=== PATIENT | female | born 1990 | race Two or more races ===

== ENCOUNTER 2018-03-26 14:34 | Inpatient (IN) | payer OTHER ==
[~2018-03-26] VITALS: Ht 157.5 cm; Wt 59.4 kg
--- NOTE | 2018-03-26 14:50 | NUR ---
BIB [facility] FOR FEVER AND TACHYCARDIA . PATIENT IS AFEBRILE AT THIS TIME. GT PATENT. PATIENT NOTED WITH HEMATURIA. VSS
[2018-03-26] MEDS ORDERED: PIPERACILLIN /TAZOBACTAM 4.5 G in IV D5W 50 ML IV ONE (15:00)
--- NOTE | 2018-03-26 15:18 | NUR ---
CALLED [facility] CELL CHANGER WAS PAGED.
[2018-03-26 15:29] LABS: BASOPHILS # (AUTO) 0.1 /CMM (0.0-0.2); BASOPHILS % (AUTO) 0.4 % (0.0-2.0); EOSINOPHILS % (AUTO) 0.8 % (0.0-6.0); HEMATOCRIT 27 % (33-45); HEMOGLOBIN 9.3 g/dL (11.5-14.8); LYMPHOCYTES # (AUTO) 1.8 /CMM (0.8-4.8); LYMPHOCYTES % (AUTO) 10.1 % (20.0-44.0); MEAN CORPUSCULAR HGB CONC 35 g/dl (31.0-36.0); MEAN CORPUSCULAR VOLUME 85 fL (82-100); MONOCYTES # (AUTO) 1.2 /CMM (0.1-1.30); MONOCYTES % (AUTO) 6.7 % (2.0-12.0); NEUTROPHILS # (AUTO) 14.9 /CMM (1.8-8.9); PLATELET COUNT (AUTO) 146 /CMM (150-450); RDW COEFFICIENT OF VARIATION 13.1 (11.5-15.0); RED BLOOD CELL COUNT(AUTO) 3.14 MIL/uL (4.0-5.2); WHITE BLOOD COUNT (AUTO) 18.1 K/uL (4.3-11.0)
[2018-03-26] MEDS ORDERED: IV NS 0.9% 1,000 ML BAG IV ONE ×3 (15:30)
[2018-03-26 15:37] LABS: CALCIUM, SERUM 8.2 mg/dL (8.5-10.1); CREATININE 0.8 mg/dL (0.6-1.3); POTASSIUM 3.6 mmol/L (3.5-5.1)
[2018-03-26 15:43] LABS: ALBUMIN 1.8 g/dL (3.4-5.0); BILIRUBIN,DIRECT 0.4 mg/dL (0.0-0.2); BILIRUBIN,TOTAL 0.6 mg/dL (0.2-1.0); TOTAL PROTEIN, SERUM 6.7 g/dL (6.4-8.2)
[2018-03-26] MEDS: VANCOMYCIN 1 GM in IV NS 0.9% 250 ML IV SCH (15:50)
[2018-03-26] MEDS ORDERED: LACT-209 GT (15:56)
[2018-03-26] MEDS ORDERED: ASCO500T9 GT (15:56)
[2018-03-26] MEDS ORDERED: ACET650S26 GT (15:56)
[2018-03-26] MEDS ORDERED: GLYC1TAB12 GT (15:56)
[2018-03-26] MEDS ORDERED: TRAM50TA2 GT (15:56)
[2018-03-26] MEDS ORDERED: MAGN400T6 GT (15:56)
[2018-03-26] MEDS ORDERED: ALBU2.5V38 IH (15:56)
[2018-03-26] MEDS ORDERED: WARF2TAB57 GT (15:56)
[2018-03-26] MEDS ORDERED: LEVE1000 PO (15:56)
[2018-03-26] MEDS ORDERED: SACC250C GT (15:56)
[2018-03-26] MEDS ORDERED: LACO200T2 GT (15:56)
[2018-03-26 16:00] LABS: APPEARANCE,URINE Cloudy (CLEAR); BILIRUBIN,URINE MODERATE (NEGATIVE); BLOOD, URINE Large Ery/uL (NEGATIVE); COLOR,URINE Red (YELLOW); KETONES,URINE 15 (NEGATIVE); LEUKOCYTE ESTERASE ,URINE Large (NEGATIVE); NITRITE, URINE Positive (NEGATIVE); PH,URINE 8.5 (5.0-8.0); PROTEIN,URINE >=300 mg/dl (NEGATIVE); UGLUCOSE Negative (NEGATIVE)
[2018-03-26 16:05] LABS: PARTIAL THROMBOPLASTIN TIME 62 SEC (23-34)
[2018-03-26 16:09] LABS: INR > 10.00 (0.87-1.13)
[2018-03-26 16:13] LABS: RBC,URINE TOO NUMEROUS TO COUN /HPF (0-2)
[2018-03-26 16:14] LABS: BACTERIA,URINE Moderate /HPF (None Seen)
[2018-03-26 16:15] LABS: SQUAMOUS EPITHELIAL CELL,UR Few /HPF (None Seen)
[2018-03-26] MEDS ORDERED: ALBUTEROL FS 2.5 MG/3 ML VIAL.NEB IH PRN (16:30)
[2018-03-26] MEDS ORDERED: PHYTONADIONE INJ 10 MG in IV D5W 50 ML IV ONE (16:30)
[2018-03-26] MEDS ORDERED: ACETAMINOPHEN 650 MG/20.3 ML UDC GT SCH (16:30)
[2018-03-26 16:46] LABS: BAND % (MANUAL) 1 % (0.0-5.0); EOSINOPHILS % (MANUAL) 0 % (0-4); LYMPHOCYTES % (MANUAL) 10 % (16-48); MONOCYTES % (MANUAL) 8 % (0-11.0); NEUTROPHILS % (MANUAL) 81 (42-76)
--- NOTE | 2018-03-26 16:47 | NUR ---
REPORT GIVEN TO LIBAN ROBERTS
--- NOTE | 2018-03-26 16:47 | NUR ---
PT WAS TAKEN TO CT
[2018-03-26] MEDS: GLYCOPYRROLATE 1 MG TABLET GT SCH ×2 (18:38→23:40)
[2018-03-26] MEDS: LACTOBACILLUS RHAMNOSUS GG 1 EACH CAP.SPRINK PO SCH (18:40)
[2018-03-26] MEDS: JEVITY 1.2 CAL 1,000 ML BOTTLE GT SCH (19:05)
--- NOTE | 2018-03-26 19:22 | NUR ---
WASHER MACHINE ADMITTING NOTES PATIENT ADMITTED TO UNIT AT 1830 VIA GURNEY ACCOMPANIED BY Nakul VEGA. PATIENT TRANSFERRED TO BED GENTLY AND PLACED ON MODERATE HIGH BACKREST POSITION. ALERT, OPENS HER EYES, NON-VERBAL AND DOESN'T FOLLOW COMMANDS. 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 V/S TAKEN; BP 118/84, P 71, R 18, AND T 97.6F. PT ON TRACH COLLAR (T- PIECE) AT 5LPM, TOLERATING WELL WITH NO SOB NOTED, SP02 99%. PT WITH MONTERO CATHETER FR # [address] AND ACTIVELY DRAINING GROSS HEMATURIA, INVESTIGATION CLERK GIGI AWARE. PT WITH PEG-TUBE IN PLACE AND PATENT WITH FEEDING OF JEVITY 1.2 @ 50ML/HR STARTED. ASPIRATION PRECAUTIONS ENFORCED. PT HAS TWO IV LINES: RIGHT HAND G# 22,AND LEFT THUMP G#22, BOTH INTACT AND PATENT. SAFETY MEASURES INITIATED. BED PLACED ON LOW/LOCKED POSITION WITH SIDE-RAILS UP X3. CALL LIGHT WITHIN REACH. ENDORSED TO CHARGE WEIGHER NURSE BEE TO CONTINUE AND FINISH THE ADMISSION PROCESS,
--- NOTE | 2018-03-26 19:53 | NUR ---
LABEL TACKER OPENING NOTE RECEIVED PATIENT IN BED. AWAKE, NON-VERBAL, OPENS EYES. DOES NO RESPOND OR FOLLOW COMMANDS. IN NO APPARENT DISTRESS OR DISCOMFORT AT THIS TIME. PT ON TRACH COLLAR (T- PIECE) AT 5LPM, TOLERATING WELL WITH NO SOB NOTED. RESPIRATIONS EVEN AND UNLABORED. PT WITH MONTERO CATHETER FR # [address] AND ACTIVELY DRAINING GROSS HEMATURIA, SALESPERSON STEREO EQUIPMENT GIGI AWARE. PT WITH PEG-TUBE IN PLACE AND PATENT WITH FEEDING OF JEVITY 1.2 @ 50ML/HR STARTED. PT HAS 2 IV LINES: RIGHT HAND G# 22,AND LEFT THUMP G#22, BOTH INTACT AND PATENT. ASPIRATION PRECAUTIONS ENFORCED, HOB ELEVATED. SAFETY MEASURES IN PLACE. BED IN LOW LOCKED POSITION, SIDE RAILS UP X2, WILL CONTINUE TO MONITOR.
[2018-03-26] MEDS ORDERED: ONDANSETRON HCL/PF 4 MG/2 ML VIAL IVP PRN (20:30)
[2018-03-26] MEDS ORDERED: Z GUARD REMEDY 2 OZ OINT TP PRN (20:30)
[2018-03-26] MEDS ORDERED: ZOLPIDEM TARTRATE 5 MG TABLET PO PRN (20:30)
[2018-03-26 21:00] VITALS: BP 129/72
[2018-03-26 21:01] LABS: BASOPHILS % (AUTO) 0.1 % (0.0-2.0); EOSINOPHILS % (AUTO) 0.4 % (0.0-6.0); HEMATOCRIT 31 % (33-45); HEMOGLOBIN 10.4 g/dL (11.5-14.8); LYMPHOCYTES # (AUTO) 1.9 /CMM (0.8-4.8); MEAN CORPUSCULAR HGB CONC 34 g/dl (31.0-36.0); MEAN CORPUSCULAR VOLUME 86 fL (82-100); MONOCYTES # (AUTO) 1.2 /CMM (0.1-1.30); NEUTROPHILS % (AUTO) 81.5 % (43.0-81.0); PLATELET COUNT (AUTO) 168 /CMM (150-450); RDW COEFFICIENT OF VARIATION 14.1 (11.5-15.0); RED BLOOD CELL COUNT(AUTO) 3.58 MIL/uL (4.0-5.2); WHITE BLOOD COUNT (AUTO) 17.2 K/uL (4.3-11.0)
[2018-03-26] MEDS: LEVETIRACETAM (250 MG) 250 MG TABLET PO SCH (21:10)
[2018-03-26] MEDS: TRAMADOL HCL 50 MG TABLET GT SCH ×2 (21:11→22:11)
[2018-03-26] MEDS: MAGNESIUM OXIDE 400 MG TABLET GT SCH (21:11)
[2018-03-26 21:16] LABS: BAND % (MANUAL) 7 % (0.0-5.0); BASOPHILS % (MANUAL) 0 % (0.0-2.0); EOSINOPHILS % (MANUAL) 1 % (0-4); LYMPHOCYTES % (MANUAL) 15 % (16-48); MONOCYTES % (MANUAL) 4 % (0-11.0); NEUTROPHILS % (MANUAL) 73 (42-76)
--- NOTE | 2018-03-26 22:00 | NUR ---
PATIENT WITH GROSS HEMATURIA, CONTINUOUS BLADDER IRRIGATION THROUGH [address] INITIATED PER DR. YU'S ORDER. MONTERO CATHETER REPLACED WITH THREE WAY CATHETER
--- NOTE | 2018-03-26 22:30 | NUR ---
PATIENT HAS ORDER FOR FFP X2 UNITS BY DR. YU. SPOKE TO LAB, PLASMA IS NOT READY YET. WAS TOLD I WILL BE NOTIFIED ONCE IT IS READY IN COUPLE HOURS. WILL CONTINUE TO MONITOR. MEANWHILE WILL TRY TO OBTAIN CONSENT.
--- NOTE | 2018-03-26 22:40 | NUR ---
PATIENT WITHOUT ANY EMERGENCY CONTACT. ATTEMPTED TWO CALLS TO THE NURSING FACILITY SHE CAME FROM TO OBTAIN INFORMATION REGARDING ANY RELATIVES. NO SUCCESS. WILL CALL THE [facility] TO REPORT.
--- NOTE | 2018-03-26 23:05 | NUR ---
SPOKE WITH DR. EVANS REGARDING NOT BEING ABLE TO FIND ANY RELATIVES TO CONSENT FOR FFP TRANSFUSION FOR THE PATIENT. REPORTED CURRENT AND OLD LABS, PATIENT'S CURRENT CONDITION. WAS TOLD BY DR. EVANS TO HOLD THE TRANSFUSION TILL THE AM. WILL CONTINUE TO MONITOR.
[2018-03-27] VITALS: BP 109/74
[2018-03-27] MEDS ORDERED: VANCOMYCIN 1 GM VIAL ONE (02:33)
[2018-03-27] MEDS: VANCOMYCIN 1 GM in IV NS 0.9% 250 ML IV SCH (02:43)
[2018-03-27 04:00] VITALS: BP 141/85
[2018-03-27] MEDS: GLYCOPYRROLATE 1 MG TABLET GT SCH ×4 (05:50→23:12)
--- NOTE | 2018-03-27 07:20 | NUR ---
FUNDRAISING OFFICER CLOSING NOTE PATIENT IN BED. AWAKE, NON-VERBAL, OPENS EYES. DOES NO RESPOND OR FOLLOW COMMANDS. IN NO APPARENT DISTRESS OR DISCOMFORT AT THIS TIME. PT ON TRACH COLLAR (T- PIECE) AT 5LPM, TOLERATING WELL WITH NO SOB NOTED. RESPIRATIONS EVEN AND UNLABORED. PT WITH 3 WAY MONTERO CATHETER IN PLACE WITH CONTINUOUS BLADDER IRRIGATING THROUGHOUT THE NIGHT. URINE COLOR SLIGHTLY IMPROVED TO BE CRANBERRY COLOR. PATIENT HAD ORDER FOR FFP TRANSFUSION BUT DUE TO INABILITY TO OBTAIN CONSENT THE TRANSFUSION WAS PUT ON HOLD TILL AM PER DR. EVANS ORDER. PT WITH PEG-TUBE IN PLACE AND PATENT WITH FEEDING OF JEVITY 1.2 @ 50ML/HR STARTED. PT HAS 2 IV LINES: RIGHT HAND G# 22,AND LEFT THUMP G#22, BOTH INTACT AND PATENT. ASPIRATION PRECAUTIONS ENFORCED, HOB ELEVATED. SAFETY MEASURES IN PLACE. BED IN LOW LOCKED POSITION, SIDE RAILS UP X2, WILL ENDORSE TO AM NURSE FOR GUILLERMO.
--- NOTE | 2018-03-27 07:38 | NUR ---
MS/RN OPENING NOTE PATIENT IN BED IN STABLE CONDITION. NON VERBAL, OPEN EYES. ON TRACH DEPENDENT. TOLERATING WELL. NO SIGNS OF ACUTE DISTRESS. NO COMPLAIN OF PAIN OR DISCOMFORT. ON G TUBE FEEDING JEVITY @ 50 ML/HR. TOLERATING WELL. HOB ELEVATED FOR ASPIRATION PRECAUTION. ON CONTINUOS BLADDER IRRIGATION. TOLERATING WELL. F/C INTACT AND FLOWING FREELY NOTED WITH SEROSANGUINEOUS COLOR OUTPUT. ALL NEEDS ATTENDED TO. CALL LIGHT WITHIN REACH. WILL CONTINUE TO MONITOR TO ENSURE SAFETY.
[2018-03-27] MEDS: LACTOBACILLUS RHAMNOSUS GG 1 EACH CAP.SPRINK PO SCH ×2 (08:48→17:10)
[2018-03-27] MEDS: LACOSAMIDE 50 MG TABLET GT SCH ×2 (08:48→21:37)
[2018-03-27] MEDS: TRAMADOL HCL 50 MG TABLET GT SCH ×2 (08:49→21:37)
[2018-03-27] MEDS: ASCORBIC ACID 500 MG TABLET GT SCH (08:49)
[2018-03-27] MEDS: ACETAMINOPHEN 325 MG TABLET PO PRN (08:49)
[2018-03-27 09:22] LABS: BASOPHILS % (AUTO) 0.3 % (0.0-2.0); EOSINOPHILS % (AUTO) 1.1 % (0.0-6.0); HEMATOCRIT 27 % (33-45); LYMPHOCYTES # (AUTO) 1.3 /CMM (0.8-4.8); MEAN CORPUSCULAR HGB CONC 33 g/dl (31.0-36.0); MEAN CORPUSCULAR VOLUME 86 fL (82-100); MONOCYTES # (AUTO) 0.6 /CMM (0.1-1.30); MONOCYTES % (AUTO) 5.9 % (2.0-12.0); NEUTROPHILS # (AUTO) 8.6 /CMM (1.8-8.9); NEUTROPHILS % (AUTO) 80.7 % (43.0-81.0); PLATELET COUNT (AUTO) 194 /CMM (150-450); WHITE BLOOD COUNT (AUTO) 10.7 K/uL (4.3-11.0)
[2018-03-27 09:42] LABS: CALCIUM, SERUM 7.6 mg/dL (8.5-10.1); CREATININE 0.8 mg/dL (0.6-1.3); MAGNESIUM 1.6 mg/dL (1.8-2.4); PHOSPHORUS 2.1 mg/dL (2.5-4.9); POTASSIUM 3.1 mmol/L (3.5-5.1)
[2018-03-27 09:44] VITALS: BP 118/59
[2018-03-27 10:07] LABS: INR 1.03 (0.87-1.13)
[2018-03-27] MEDS ORDERED: POTASSIUM CHLORIDE 20 MEQ POWDER PACKET GT ONE (11:00)
[2018-03-27] MEDS ORDERED: FEE PK DOSING 1 MIN EA MC ONE (11:16)
[2018-03-27] MEDS: Magnesium 1GM/D5W 100ML PREMIX 100 ML IV SCH ×2 (11:33→12:40)
[2018-03-27] MEDS: PIPERACILLIN /TAZOBACTAM 3.375 G in IV NS 0.9% 50 ML IV SCH ×2 (13:37→19:16)
[2018-03-27] MEDS ORDERED: NEUTRA PHOS 1 POWD.PACKET NG ONE (14:00)
[2018-03-27] MEDS: VANCOMYCIN 0.75 GM in IV NS 0.9% 250 ML IV SCH ×2 (14:18→19:47)
[2018-03-27 15:28] LABS: BASOPHILS % (AUTO) 0.3 % (0.0-2.0); EOSINOPHILS % (AUTO) 1.4 % (0.0-6.0); HEMATOCRIT 25 % (33-45); HEMOGLOBIN 8.3 g/dL (11.5-14.8); LYMPHOCYTES # (AUTO) 2.3 /CMM (0.8-4.8); LYMPHOCYTES % (AUTO) 16.8 % (20.0-44.0); MEAN CORPUSCULAR HGB CONC 33 g/dl (31.0-36.0); MEAN CORPUSCULAR VOLUME 85 fL (82-100); MONOCYTES # (AUTO) 1.6 /CMM (0.1-1.30); MONOCYTES % (AUTO) 11.9 % (2.0-12.0); NEUTROPHILS # (AUTO) 9.6 /CMM (1.8-8.9); NEUTROPHILS % (AUTO) 69.6 % (43.0-81.0); PLATELET COUNT (AUTO) 181 /CMM (150-450); RDW COEFFICIENT OF VARIATION 14.5 (11.5-15.0); RED BLOOD CELL COUNT(AUTO) 2.93 MIL/uL (4.0-5.2); WHITE BLOOD COUNT (AUTO) 13.8 K/uL (4.3-11.0)
[2018-03-27 16:00] VITALS: BP 108/74
--- NOTE | 2018-03-27 18:20 | NUR ---
MS/RN CLOSING NOTE PATIENT IN BED IN STABLE CONDITION. NON VERBAL, OPEN EYES. TRACH DEPENDENT, TOLERATING WELL. NO SIGNS OF ACUTE DISTRESS. NO COMPLAIN OF PAIN OR DISCOMFORT. ON G TUBE FEEDING TOLERATING WELL. HOB ELEVATED FOR ASPIRATION PRECAUTION. TOLERATING WELL. ON CONTINUOUS BLADDER IRRIGATION, TOLERATING WELL. F/C DRAINING WELL, STILL NOTED WITH LIGHT RED COLOR OUTPUT WITH VERY LITTLE SIZE/FEW BLOOD CLOTS. ALL NEEDS ATTENDED TO. CALL LIGHT WITHIN REACH. WILL ENDORSE TO NEXT SHIFT FOR CONTINUITY OF CARE.
--- NOTE | 2018-03-27 19:25 | NUR ---
MS RN OPENING NOTE RECEIVED PATIENT IN BED. AWAKE, NON-VERBAL, OPENS EYES. DOES NO RESPOND OR FOLLOW COMMANDS. IN NO APPARENT DISTRESS OR DISCOMFORT AT THIS TIME. PT ON TRACH COLLAR, TOLERATING WELL WITH NO SOB NOTED. RESPIRATIONS EVEN AND UNLABORED. PT WITH 3 WAY MONTERO CATHETER IN PLACE WITH CONTINUOUS BLADDER IRRIGATION, BRIGHT RED COLOR OUTPUT, SMALL AMOUNT OF CLOTS STILL NOTED . PT WITH PEG-TUBE IN PLACE AND PATENT WITH FEEDING OF JEVITY 1.2 @ 50ML/HR RESTARTED FOR 20HRS. PT HAS 2 IV LINES: RIGHT HAND G# 22,AND LEFT THUMP G#22, BOTH INTACT AND PATENT. ASPIRATION PRECAUTIONS ENFORCED, HOB ELEVATED. SAFETY MEASURES IN PLACE. BED IN LOW LOCKED POSITION, SIDE RAILS UP X2, WILL CONTINUE TO MONITOR.
[2018-03-27] MEDS: JEVITY 1.2 CAL 1,000 ML BOTTLE GT SCH (19:48)
[2018-03-27 20:00] VITALS: BP 118/74
[2018-03-27] MEDS: MAGNESIUM OXIDE 400 MG TABLET GT SCH (21:37)
[2018-03-27] MEDS: LEVETIRACETAM (250 MG) 250 MG TABLET PO SCH (21:38)
[2018-03-28] MEDS: PIPERACILLIN /TAZOBACTAM 3.375 G in IV NS 0.9% 50 ML IV SCH ×4 (00:01→18:09)
[2018-03-28] MEDS: VANCOMYCIN 0.75 GM in IV NS 0.9% 250 ML IV SCH ×3 (03:09→19:58)
[2018-03-28] MEDS: GLYCOPYRROLATE 1 MG TABLET GT SCH ×3 (05:18→17:25)
--- NOTE | 2018-03-28 07:25 | NUR ---
MS RN CLOSING NOTE PATIENT IN BED. AWAKE, NON-VERBAL, OPENS EYES. DOES NO RESPOND OR FOLLOW COMMANDS. IN NO APPARENT DISTRESS OR DISCOMFORT AT THIS TIME. PT ON TRACH COLLAR WITH 5LPM, TOLERATING WELL WITH NO SOB NOTED. RESPIRATIONS EVEN AND UNLABORED. PT WITH 3 WAY MONTERO CATHETER IN PLACE WITH CONTINUOUS BLADDER IRRIGATION, BRIGHT RED COLOR OUTPUT. PT WITH PEG-TUBE IN PLACE AND PATENT WITH FEEDING OF JEVITY 1.2 @ 50ML/HR RESTARTED FOR 20HRS. PT HAS 2 IV LINES: RIGHT HAND G# 22,AND LEFT THUMP G#22, BOTH INTACT AND PATENT. ASPIRATION PRECAUTIONS ENFORCED, HOB ELEVATED. SAFETY MEASURES IN PLACE. BED IN LOW LOCKED POSITION, SIDE RAILS UP X2. WILL ENDORSE TO AM NURSE FOR GUILLERMO.
--- NOTE | 2018-03-28 07:50 | NUR ---
RN NOTES PATIENT RESTING, NON-VERBAL. ON COOL AEROSOL AND SATING WELL, NO SOB OR DISTRESS NOTED. NO FACIAL GRIMACING NOTED. URINARY IRRIGATION STILL CONTINUES, 2000ML OUTPUT NOTED ON THE BAG. ON GTF ONGOING AND TOLERATING WELL, HOB ELEVATED, CALL LIGHT WITHIN REACH, SAFETY MEASURES IN PLACED, WILL CONTINUE TO MONITOR.
[2018-03-28 08:00] VITALS: BP 131/79
[2018-03-28] MEDS: ASCORBIC ACID 500 MG TABLET GT SCH (08:24)
[2018-03-28] MEDS: LACOSAMIDE 50 MG TABLET GT SCH ×2 (08:24→21:18)
[2018-03-28] MEDS: TRAMADOL HCL 50 MG TABLET GT SCH ×2 (08:24→21:18)
[2018-03-28] MEDS: LACTOBACILLUS RHAMNOSUS GG 1 EACH CAP.SPRINK PO SCH ×2 (08:25→16:04)
--- NOTE | 2018-03-28 11:00 | NUR ---
RN NOTES RECEIVED ORDER FROM ESAU LANGE TO DISCONTINUE BLADDER IRRIGATION.
[2018-03-28 16:00] VITALS: BP 122/51
--- NOTE | 2018-03-28 16:00 | NUR ---
RN NOTES PATIENT'S VS RELAYED TO ESAU LANGE, BP 117/58 HR 117 TEMP 101.8, RECEIVED ORDER FOR BLOOD CULTURE X2. ORDER NOTED AND CARRIED OUT. COOLING MEASURES PROVIDED, TYLENOL WILL BE ADMINISTERED.
[2018-03-28] MEDS: ACETAMINOPHEN 325 MG TABLET PO PRN (16:04)
[2018-03-28 16:44] LABS: EOSINOPHILS % (AUTO) 1.1 % (0.0-6.0); HEMATOCRIT 23 % (33-45); HEMOGLOBIN 7.9 g/dL (11.5-14.8); LYMPHOCYTES # (AUTO) 1.9 /CMM (0.8-4.8); LYMPHOCYTES % (AUTO) 11.1 % (20.0-44.0); MEAN CORPUSCULAR HGB CONC 35 g/dl (31.0-36.0); MEAN CORPUSCULAR VOLUME 85 fL (82-100); MONOCYTES # (AUTO) 1.3 /CMM (0.1-1.30); MONOCYTES % (AUTO) 7.8 % (2.0-12.0); NEUTROPHILS # (AUTO) 13.7 /CMM (1.8-8.9); PLATELET COUNT (AUTO) 243 /CMM (150-450); RDW COEFFICIENT OF VARIATION 13.9 (11.5-15.0); RED BLOOD CELL COUNT(AUTO) 2.71 MIL/uL (4.0-5.2); WHITE BLOOD COUNT (AUTO) 17.1 K/uL (4.3-11.0)
[2018-03-28 17:01] LABS: CALCIUM, SERUM 7.8 mg/dL (8.5-10.1); CREATININE 0.7 mg/dL (0.6-1.3); LYMPHOCYTES % (MANUAL) 14 % (16-48); MAGNESIUM 1.9 mg/dL (1.8-2.4); MONOCYTES % (MANUAL) 6 % (0-11.0); NEUTROPHILS % (MANUAL) 80 (42-76); PHOSPHORUS 2.9 mg/dL (2.5-4.9); POTASSIUM 3.5 mmol/L (3.5-5.1)
--- NOTE | 2018-03-28 18:22 | NUR ---
RN NOTES PATIENT OPENS EYES, NON-VERBAL, BREATHING EVEN AND UNLABORED, ON TRACH AND TOLERATING COOL AEROSOL SETTING. NO S/SX OF PAIN OR DISCOMFORT AT THIS TIME, TURNED AND REPOSITIONED EVERY 2 HOURS, SKIN CARE RENDERED, OFFLOAD EXTREMITIES, WOUND CONSULT TRIGGERED, HARRIET DRIVER RETRAINING INSTRUCTOR MADE AWARE. PATIENT CONTINUES ON COOLING MEASURES, TEMP 99.1. ALL NEEDS ATTENDED AND MET, CALL LIGHT WITHIN REACH, WILL ENDORSE TO SPOTTER DRIVER FOR GUILLERMO.
--- NOTE | 2018-03-28 19:30 | NUR ---
RN MS OPENING NOTES RECEIVED PATIENT IN BED, AWAKE, EASILY AROUSABLE, OBTUNDED, NON VERBAL, RESPIRATIONS EVEN AND UNLABORED, TRACH INTACT AND PATENT, ON 02 , MONTERO CATHETER INTACT NOTED DRAINING RED/PINK URINE, F/C PATENT, GTUBE PLACEMENT CHECKED INTACT AND PATENT, IV SITE TO RIGHT HAND 22 GAUGE AND LEFT THUMB 22 GAUGE INTACT AND PATENT, NO INFILTRATION NO REDNESS TO SITES PRESENT.HEAD OF BED ELEVATED FOR ASPIRATION PRECAUTIONS, NOTED TEMP OF 100.2 COOLING MEASURES RENDERED WILL CONTINUE TO MONITOR. SAFETY MEASURES IN PLACE CALL LIGHT KEPT WITHIN REACH
[2018-03-28 20:00] VITALS: BP 110/63
--- NOTE | 2018-03-28 20:00 | NUR ---
RN NOTES COOLING MEASURES EFFECTIVE NOTED TEMP DECREASE TO 99.3, PATIENT REMAINS COMFORTABLE AT THIS TIME.WILL CONTINUE TO MONITOR
[2018-03-28 20:02] VITALS: BP 110/63
[2018-03-28] MEDS: JEVITY 1.2 CAL 1,000 ML BOTTLE GT SCH (20:14)
--- NOTE | 2018-03-28 21:00 | NUR ---
RN NOTES VIMPAT INTENDED DOSE IS 200 I REMOVED 100MG AND RETURNED TO [facility] DUE TO WRONG DOSE REMOVED WAS ABLE TO GET CORRECT DOSE FROM OTHER [facility]
[2018-03-28] MEDS: MEROPENEM 500 MG in IV NS 0.9% 50 ML IV SCH (21:19)
[2018-03-28] MEDS: MAGNESIUM OXIDE 400 MG TABLET GT SCH (22:05)
[2018-03-28] MEDS: LEVETIRACETAM (250 MG) 250 MG TABLET PO SCH (22:06)
--- NOTE | 2018-03-28 22:10 | NUR ---
RN MS NOTES PERINEAL CARE PROVIDED WOUND TREATMENT DONE ORDERED TO SACRAL DTI AND MASD OF BUTTOCKS, TOLERATED WELL , NO DETERIORATION TO SITE NOTED, KEPT CLEAN AND DRY, REPOSITIONED TO OFFLOAD AFFECTED AREAS WILL CONTINUE TO MONITOR.
[2018-03-29] MEDS: GLYCOPYRROLATE 1 MG TABLET GT SCH ×5 (00:30→23:18)
[2018-03-29] MEDS: ACETAMINOPHEN 325 MG TABLET PO PRN ×3 (02:09→18:33)
--- NOTE | 2018-03-29 02:10 | NUR ---
RN MS NOTES NOTED PATIENT WITH FEVER OF 100.7 COOLING MEASURES PROVIDED, TYLENOL GIVEN ORDERED, WILL CONTINUE TO MONITOR AND PROVIDE COOLING MEASURES , BLOOD CULTURE STILL PENDING
[2018-03-29] MEDS: VANCOMYCIN 0.75 GM in IV NS 0.9% 250 ML IV SCH ×3 (03:09→19:28)
[2018-03-29] MEDS: MEROPENEM 500 MG in IV NS 0.9% 50 ML IV SCH ×3 (04:20→20:45)
--- NOTE | 2018-03-29 05:20 | NUR ---
RN MS NOTES NOTED PATIENT FEVER NOT DECREASING DESPITE COOLING MEASURES AND TYLENOL GIVEN VIA GT, SPOKE TO LOOPING INSPECTOR MD DR. REAL TO [facility] OF FEVER 103 WITH NEW ORDERS FOR TYLENOL SUPPOSITORY 650 MG Q6HR PRN, WILL CONTINUE TO FOLLOW UP.
[2018-03-29] MEDS: ACETAMINOPHEN 650 MG/SUPP.RECT RC PRN (05:30)
--- NOTE | 2018-03-29 05:30 | NUR ---
RN MS NOTES TYLENOL SUPPOSITORY 650MG GIVEN ORDERED, WILL CONTINUE TO MONITOR.
--- NOTE | 2018-03-29 06:11 | NUR ---
RN MS NOTES TEMPERATURE REASSESSED NOTED AT 99.8, TYLENOL NOTED EFFECTIVE WILL CONTINUE TO MONITOR AND PROVIDE COOLING MEASURES, NO DISTRESS PRESENT , PATIENT REMAINS COMFORTABLE AT THIS TIME.
[2018-03-29 06:45] LABS: CALCIUM, SERUM 7.9 mg/dL (8.5-10.1); CREATININE 0.8 mg/dL (0.6-1.3); POTASSIUM 3.8 mmol/L (3.5-5.1)
--- NOTE | 2018-03-29 06:51 | NUR ---
RN MS CLOSING NOTES PATIENT IN BED, AWAKE, EASILY AROUSABLE, OBTUNDED, NON VERBAL, RESPIRATIONS EVEN AND UNLABORED, TRACH INTACT AND PATENT, ON 02 , MONTERO CATHETER INTACT NOTED DRAINING RED/PINK URINE NOTED FACTORY MAINTENANCE MANAGER IN COLOR, F/C PATENT, GTUBE PLACEMENT CHECKED INTACT AND PATENT, IV SITE TO RIGHT HAND 22 GAUGE AND LEFT THUMB 22 GAUGE INTACT AND PATENT, NO INFILTRATION NO REDNESS TO SITES PRESENT.HEAD OF BED ELEVATED FOR ASPIRATION PRECAUTIONS, NOTED TEMPERATURE DECREASE TO 99.8 CONTINUE TO PROVIDE COOLING MEASURES RENDERED WILL CONTINUE TO MONITOR AND ENDORSE TO NEXT SHIFT.
--- NOTE | 2018-03-29 07:10 | NUR ---
ms rn initial notes Received patient in bed, asleep, head of bed elevated, no SOB or distress noted. On cool aerosol, trach. Meza in placed attached to drainage bag, still noted hematuria. GT intact and patent with feeding tube infusing well. IV intact and patent. Will continue to monitor accordingly.
[2018-03-29 08:00] VITALS: BP 100/55
[2018-03-29] MEDS: ASCORBIC ACID 500 MG TABLET GT SCH (08:27)
[2018-03-29] MEDS: LACTOBACILLUS RHAMNOSUS GG 1 EACH CAP.SPRINK PO SCH ×2 (08:27→16:30)
[2018-03-29] MEDS: TRAMADOL HCL 50 MG TABLET GT SCH ×2 (08:27→20:14)
--- NOTE | 2018-03-29 08:28 | NUR ---
WOUND CARE CONSULT: PT FOLLOWED BY SURGICAL TEAM. DEFER TO SURGICAL TEAM FOR WOUND TREATMENT PLAN. DISCUSSED SKIN PROTECTION WITH NURSING STAFF. ALL SKIN PROTECTION AND PRESSURE ULCER PREVENTION MEASURES IN PLACE. CURRENT TAYLOR SCORE IS 12. PT ON WASTA ISOFLEX LOW AIRLOSS BED.
[2018-03-29] MEDS: LACOSAMIDE 50 MG TABLET GT SCH ×2 (10:04→20:14)
[2018-03-29 11:29] LABS: BASOPHILS % (AUTO) 0.1 % (0.0-2.0); EOSINOPHILS % (AUTO) 0.3 % (0.0-6.0); HEMATOCRIT 24 % (33-45); LYMPHOCYTES # (AUTO) 1.5 /CMM (0.8-4.8); MEAN CORPUSCULAR HGB CONC 34 g/dl (31.0-36.0); MEAN CORPUSCULAR VOLUME 86 fL (82-100); MONOCYTES # (AUTO) 2.1 /CMM (0.1-1.30); MONOCYTES % (AUTO) 9.5 % (2.0-12.0); NEUTROPHILS # (AUTO) 18.4 /CMM (1.8-8.9); NEUTROPHILS % (AUTO) 83.1 % (43.0-81.0); PLATELET COUNT (AUTO) 266 /CMM (150-450); RDW COEFFICIENT OF VARIATION 13.7 (11.5-15.0); WHITE BLOOD COUNT (AUTO) 22.1 K/uL (4.3-11.0)
[2018-03-29 12:21] LABS: BAND % (MANUAL) 5 % (0.0-5.0); EOSINOPHILS % (MANUAL) 1 % (0-4); LYMPHOCYTES % (MANUAL) 10 % (16-48); METAMYELOCYTES % 1 % (0-0); MONOCYTES % (MANUAL) 8 % (0-11.0); MYELOCYTES % 1 % (0-0); NEUTROPHILS % (MANUAL) 74 (42-76)
[2018-03-29] MEDS: LEVOFLOXACIN 750 MG /D5W 150ML 750 MG in PREMIX 1 EA IV SCH (12:23)
[2018-03-29 16:00] VITALS: BP 115/73
[2018-03-29] MEDS: ENOXAPARIN SODIUM 60 MG/0.6 ML DISP.SYRIN SQ SCH (16:30)
[2018-03-29] MEDS: JEVITY 1.2 CAL 1,000 ML BOTTLE GT SCH (16:33)
--- NOTE | 2018-03-29 19:13 | NUR ---
ms rn closing notes All needs provided, attended, and anticipated, patient is in stable condition. Endorsed to next shift RN to continue care. Call light with in patient reach.
--- NOTE | 2018-03-29 19:20 | NUR ---
MS RN OPENING NOTES: RECEIVED PT AND IS ON 5LPM VIA COOL AEROSOL/TRACH.PT IS OBTUNDED AND NON-VERBAL. EYES OPEN. PT HAS F/C AND IS ATTACHED TO DRAINAGE BAG WITH URINE DRAINING. PT HAS GT FEEDING JEVITY 1.2 AT 50ML/HR. PT IN SEMI-NERI'S POSITION WITH ICE PACK ON FOREHEAD. PT HAS IV ON R HAND #22G AND IS PATENT AND INTACT. CALL LIGHT WITHIN PTS' REACH. BED KEPT IN LOW, LOCKED POSITION, AND SIDE RAILS X 2UP. WILL CONTINUE TO MONITOR PT.
[2018-03-29] MEDS: LEVETIRACETAM (250 MG) 250 MG TABLET PO SCH (21:01)
[2018-03-29] MEDS: MAGNESIUM OXIDE 400 MG TABLET GT SCH (21:01)
[2018-03-29 21:04] VITALS: BP 116/75
--- NOTE | 2018-03-30 02:26 | NUR ---
MS RN NOTES: INFORMED [facility] ATTENDANT BILLY JARRETT THAT PT HAS BEEN HAVING SEIZURE ACTIVITY NO MORE THAN 10 SECONDS. IT IS INTERMITTENTLY. GOT ONE TIME ORDER FOR ATIVAN 1MG IV ONE TIME ONLY. WILL CONTINUE TO MONITOR
[2018-03-30] MEDS ORDERED: LORAZEPAM INJ 2 MG/ML VIAL IV ONE (02:30)
[2018-03-30] MEDS: VANCOMYCIN 0.75 GM in IV NS 0.9% 250 ML IV SCH ×3 (03:25→19:40)
[2018-03-30] MEDS: MEROPENEM 500 MG in IV NS 0.9% 50 ML IV SCH ×3 (04:36→20:40)
[2018-03-30] MEDS: GLYCOPYRROLATE 1 MG TABLET GT SCH ×4 (05:09→23:09)
[2018-03-30 07:13] LABS: BASOPHILS % (AUTO) 0.1 % (0.0-2.0); EOSINOPHILS % (AUTO) 1.2 % (0.0-6.0); HEMATOCRIT 23 % (33-45); HEMOGLOBIN 7.8 g/dL (11.5-14.8); LYMPHOCYTES # (AUTO) 1.9 /CMM (0.8-4.8); LYMPHOCYTES % (AUTO) 10.7 % (20.0-44.0); MEAN CORPUSCULAR HGB CONC 34 g/dl (31.0-36.0); MEAN CORPUSCULAR VOLUME 86 fL (82-100); MONOCYTES # (AUTO) 1.6 /CMM (0.1-1.30); NEUTROPHILS # (AUTO) 13.8 /CMM (1.8-8.9); PLATELET COUNT (AUTO) 381 /CMM (150-450); RDW COEFFICIENT OF VARIATION 14.5 (11.5-15.0); RED BLOOD CELL COUNT(AUTO) 2.69 MIL/uL (4.0-5.2); WHITE BLOOD COUNT (AUTO) 17.5 K/uL (4.3-11.0)
--- NOTE | 2018-03-30 07:30 | NUR ---
MS RN OPENING NOTE PATIENT RESTING IN BED COMFORTABLY AT THIS TIME. PATIENT IS NON-VERBAL AND OBTUNDED, OPENS EYES. HAS TRACH ON COOL AEROSOL AT 5LPM, TOLERATED WELL. HAS MONTERO CATHETER PRESENT, DRAINING WELL AND WILL MONITOR FOR BLOOD CLOTS. HAS SACRAL/BUTTOCK REDNESS, WOUND TREATMETN IN PLACE. HAS G-TUBE IN PLACE CLEAN DRY AND INTACT, ON FEEDING WITH JEVITY 1.2 AT 50 ML/HR TOLERATING WELL. IV INTACT AND PATENT NO REDNESS OR SWELLING NOTED. SUCTION NEEDED. WILL CONTINUE TO MONITOR THROUGHOUT SHIFT
--- NOTE | 2018-03-30 07:42 | NUR ---
MS RN CLOSING NOTES: ALL NEEDS WERE ATTENDED AND ANTICIPATED FOR. IV REMAINS ON R HAND AND L PINKY. BOTH PATENT AND INTACT. PT HAS MONTERO CATH AND OUTPUT WAS 1700ML. PT SUCTIONED PRN. PT REMAINS ON 5LPM VIA COOL AEROSOL. BED KEPT IN LOW, LOCKED POSITION, AND SIDE RAILS X2UP. ENDORSED TO AM NURSE FOR GUILLERMO.
[2018-03-30 07:48] LABS: CALCIUM, SERUM 7.8 mg/dL (8.5-10.1); CREATININE 0.7 mg/dL (0.6-1.3); MAGNESIUM 1.7 mg/dL (1.8-2.4); PHOSPHORUS 2.2 mg/dL (2.5-4.9); POTASSIUM 3.8 mmol/L (3.5-5.1)
[2018-03-30 08:00] VITALS: BP 104/40
[2018-03-30] MEDS: ACETAMINOPHEN 650 MG/SUPP.RECT RC PRN (08:09)
--- NOTE | 2018-03-30 08:25 | NUR ---
MS LOUIE NOTE TYLENOL SUPPOSITORY GIVEN FOR FEVER GREATER THAN 103. WILL NOTIFY Addendum: 03/30/18 at 1014 by CASSI IVAN RN NOTIFIED AT 0845. NO NEW ORDERS AT THIS TIME
[2018-03-30] MEDS: TRAMADOL HCL 50 MG TABLET GT SCH ×2 (08:39→20:03)
[2018-03-30] MEDS: ASCORBIC ACID 500 MG TABLET GT SCH (08:39)
[2018-03-30] MEDS: LACTOBACILLUS RHAMNOSUS GG 1 EACH CAP.SPRINK PO SCH ×2 (08:39→17:19)
[2018-03-30] MEDS: LACOSAMIDE 50 MG TABLET GT SCH ×2 (08:40→20:03)
[2018-03-30] MEDS: ENOXAPARIN SODIUM 60 MG/0.6 ML DISP.SYRIN SQ SCH ×2 (08:48→20:07)
[2018-03-30] MEDS: LEVOFLOXACIN 750 MG /D5W 150ML 750 MG in PREMIX 1 EA IV SCH (10:44)
[2018-03-30] MEDS: JEVITY 1.2 CAL 1,000 ML BOTTLE GT SCH ×2 (10:44→16:38)
--- NOTE | 2018-03-30 10:45 | NUR ---
MS RN NOTE PATIENT'S TEMPERATURE REASSESSED AT 100.4. MD AWARE OF TEMPERATURE. ORDERS NOTED AND CARRIED OUT. WILL CONTINUE COOLING MEASURES AND MONITOR TEMPERATURE
--- NOTE | 2018-03-30 12:00 | NUR ---
MS RN NOTE G-TUBE FEEDING STOPPED. FLUSHED AND PATENT. FEEDING TO RESUME AGAIN AT 1600. WILL KEEP MONITORING G-TUBE SITE AND FLUSH NEEDED
--- NOTE | 2018-03-30 12:30 | NUR ---
SPUTUM INDUCTION PERFORMED. NO COMPLICATIONS NOTED.
[2018-03-30 16:00] VITALS: BP 143/67
[2018-03-30] MEDS ORDERED: NEUTRA PHOS 1 POWD.PACKET GT ONE (17:00)
[2018-03-30] MEDS: ACETAMINOPHEN 325 MG TABLET PO PRN (17:19)
--- NOTE | 2018-03-30 18:45 | NUR ---
MS LOUIE CLOSING NOTE PATIENT IS OBTUNDED, NON-0 Addendum: 03/30/18 at 1848 by CASSI IVAN RN NON-VERBAL. NO FACIAL GRIMACING NOTED FOR PAIN. NO SOB OR DISTRESS NOTED. ON COOL AEROSOL AT 5LPM TOLERATING WELL, SUCTIONED NEEDED. ALL DUE MEDICATIONS GIVEN ORDERED. ALL NURSING CARE NEEDS ATTENDED TO NEEDED. OBTAINED URINE, BLOOD AND RESPIRATORY CULTURES. WOUND TREATMENT DONE THROUGHOUT SHIFT. IV INTACT AND PATENT WITH IV FLUIDS RUNNING AT 100 ML/HR TOLERATING WELL. MONTERO CATHETER IN PLACE- 800 URINE OUTPUT YELLOW AND CLEAR. TYLENOL GIVEN TO REDUCE 99.1 FEVER. G-TUBE INTACT AND PATENT NO REDNESS OR SWELLING NOTED, NO RESIDUAL TOLERATING WELL AT 50 ML/HR. WILL ENDORSE TO BEATER OUT LEVELING MACHINE NURSE FOR GUILLERMO
--- NOTE | 2018-03-30 19:05 | NUR ---
MS RN OPENING NOTES: RECEIVED PT IN BED AND IS OBTUNDED AND NONVERBAL. PT ON TRACH ON COOL AEROSOL AT 5LPM. PT ON SCD PUMPS AND IS ON SEMI-NERI'S POSITION. PT OPENS EYES. PT HAS MONTERO CATH AND IS ATTACHED TO DRAINAGE BAG WITH YELLOW URINE DRAINING. PT ON G TUBE FEEDING JEVITY AT 50ML/HR. NO RESIDUAL NOTED. PT HAS IV ON R HAND #22G AND IS PATENT AND INTACT AND BEING INFUSED WITH NS AT 100ML/HR. PT ALSO HAS IV ON L PINKY 22G AND IS PATENT AND INTACT. CALL LIGHT WITHIN PT'S REACH. BED KEPT IN LOW, LOCKED POSITION, AND SIDE RAILS X 2 UP WITH PADDED RAILS FOR SEIZURE PRECAUTIONS. WILL CONTINUE TO MONITOR PT.
[2018-03-30 20:00] VITALS: BP 97/49
--- NOTE | 2018-03-30 21:00 | NUR ---
MS RN NOTES: CALLED AND SPOKE WITH MORAIMA DONG (FRIEND) AND GAVE ME A PHONE NUMBER MARLO CASTELLANOS WHO IS THE SISTER OF THE PATIENT IN [facility]. [phone] ; ATTEMPTED TO CALL THE PHONE NUMBER TWICE ALONG WITH CHARGE NURSE. NO RESPONSE AND SAYING IT IS INVALID NUMBER. NEED CONSENT FOR CT AB PELVIS WITH CONTRAST.
[2018-03-30] MEDS: LEVETIRACETAM (250 MG) 250 MG TABLET PO SCH (21:18)
[2018-03-30] MEDS: MAGNESIUM OXIDE 400 MG TABLET GT SCH (21:18)
[2018-03-31] VITALS (7 sets, daily range): BP systolic 101–122; BP diastolic 61–71
[2018-03-31] MEDS: IV NS 0.9% 1,000 ML IV PRN ×2 (00:59→18:59)
[2018-03-31] MEDS: VANCOMYCIN 0.75 GM in IV NS 0.9% 250 ML IV SCH ×3 (03:34→20:43)
[2018-03-31] MEDS: MEROPENEM 500 MG in IV NS 0.9% 50 ML IV SCH ×3 (04:52→22:29)
[2018-03-31] MEDS: GLYCOPYRROLATE 1 MG TABLET GT SCH ×4 (05:03→23:34)
[2018-03-31 06:53] LABS: EOSINOPHILS % (AUTO) 0.9 % (0.0-6.0); HEMATOCRIT 21 % (33-45); LYMPHOCYTES # (AUTO) 1.6 /CMM (0.8-4.8); LYMPHOCYTES % (AUTO) 7.8 % (20.0-44.0); MEAN CORPUSCULAR HGB CONC 33 g/dl (31.0-36.0); MEAN CORPUSCULAR VOLUME 87 fL (82-100); MONOCYTES # (AUTO) 1.8 /CMM (0.1-1.30); MONOCYTES % (AUTO) 9.3 % (2.0-12.0); NEUTROPHILS # (AUTO) 16.3 /CMM (1.8-8.9); PLATELET COUNT (AUTO) 425 /CMM (150-450); RDW COEFFICIENT OF VARIATION 14.3 (11.5-15.0); RED BLOOD CELL COUNT(AUTO) 2.45 MIL/uL (4.0-5.2); WHITE BLOOD COUNT (AUTO) 19.9 K/uL (4.3-11.0)
--- NOTE | 2018-03-31 06:58 | NUR ---
MS RN CLOSING NOTES: ALL NEEDS WERE ATTENDED AND ANTICIPATED FOR. PT ON IV FLUIDS AND BEING INFUSED WITH NS AT 100ML/HR. PT HAS G TUBE FEEDING JEVITY 1.2 AT 50ML/HR. RAILS PADDED FOR SEIZURE PRECAUTIONS. PT HAS MONTERO CATH AND URINE DRAINING. OUTPUT WAS 1500ML. CALL LIGHT WITHIN PT'S REACH. BED KEPT IN LOW, LOCKED POSITION, AND SIDE RAILS X 2UP. WILL ENDORSE TO AM NURSE FOR GUILLERMO.
--- NOTE | 2018-03-31 07:14 | NUR ---
MS RN NOTES: GOT CALL FROM LAB HGB 7 AND HCT 21; ENDORSED TO CASSI LOUIE.
[2018-03-31 07:29] LABS: CALCIUM, SERUM 7.5 mg/dL (8.5-10.1); CREATININE 0.7 mg/dL (0.6-1.3); MAGNESIUM 1.9 mg/dL (1.8-2.4); PHOSPHORUS 2.2 mg/dL (2.5-4.9); POTASSIUM 3.7 mmol/L (3.5-5.1)
--- NOTE | 2018-03-31 07:30 | NUR ---
MS RN OPENING NOTE PATIENT IS RESTING COMFORTABLY AT THIS TIME. NO FACIAL GRIMACING NOTE. NO SOB OR DISTRESS NOTED. TRACH PRESENT ON COOL AEROSOL ON 5LPM TOLERATING WELL. OBTUNDED, NON-VERBAL OPENS EYES. WOUND TREATMENT TO BE DONE THROUGHOUT SHIFT. G-TUBE INTACT AND PATENT, NO REDNESS OR SWELLING NOTED WITH TUBE FEEDING RUNNING AT 50 ML/HR TOLERATING WELL WITH NO RESIDUAL NOTED. HEAD GIRLS GOLF COACH NURSE ENDORSE LOW H/H VALUE, MD ALLEGRA WILSON,ELECTORATE OFFICER NOTIFIED. CALL LIGHT WITHIN REACH AND SAFETY MEASURES IMPLEMENTED. WILL CONTINUE TO MONITOR THROUGHOUT SHIFT
[2018-03-31] MEDS: ASCORBIC ACID 500 MG TABLET GT SCH (08:47)
[2018-03-31] MEDS: ENOXAPARIN SODIUM 60 MG/0.6 ML DISP.SYRIN SQ SCH ×2 (08:47→23:37)
[2018-03-31] MEDS: TRAMADOL HCL 50 MG TABLET GT SCH (08:47)
[2018-03-31] MEDS: LACOSAMIDE 50 MG TABLET GT SCH ×2 (08:47→22:22)
[2018-03-31] MEDS: LACTOBACILLUS RHAMNOSUS GG 1 EACH CAP.SPRINK PO SCH ×2 (08:47→16:28)
--- NOTE | 2018-03-31 08:48 | NUR ---
MS RN NOTE AT THIS TIME LOVENOX HELD DUE TO LOW H/H
--- NOTE | 2018-03-31 09:00 | NUR ---
MS RN NOTE AT THIS TIME, CT ABDOMEN WITH CONTRAST HELD DUE TO CONSENT ISSUES AT THIS TIME. AWARE
[2018-03-31] MEDS: LEVOFLOXACIN 750 MG /D5W 150ML 750 MG in PREMIX 1 EA IV SCH (10:07)
[2018-03-31] MEDS: LEVETIRACETAM (250 MG) 250 MG TABLET PO SCH ×2 (10:17→22:22)
[2018-03-31 12:07] LABS: EOSINOPHILS % (AUTO) 0.6 % (0.0-6.0); LYMPHOCYTES # (AUTO) 0.9 /CMM (0.8-4.8); LYMPHOCYTES % (AUTO) 4.4 % (20.0-44.0); MEAN CORPUSCULAR HGB CONC 34 g/dl (31.0-36.0); MEAN CORPUSCULAR VOLUME 86 fL (82-100); MONOCYTES # (AUTO) 0.5 /CMM (0.1-1.30); MONOCYTES % (AUTO) 2.7 % (2.0-12.0); NEUTROPHILS # (AUTO) 18.2 /CMM (1.8-8.9); NEUTROPHILS % (AUTO) 92.3 % (43.0-81.0); PLATELET COUNT (AUTO) 427 /CMM (150-450); RDW COEFFICIENT OF VARIATION 14.1 (11.5-15.0); RED BLOOD CELL COUNT(AUTO) 2.37 MIL/uL (4.0-5.2); WHITE BLOOD COUNT (AUTO) 19.7 K/uL (4.3-11.0)
[2018-03-31 12:18] LABS: HEMATOCRIT 20 % (33-45); HEMOGLOBIN 6.8 g/dL (11.5-14.8)
--- NOTE | 2018-03-31 12:33 | NUR ---
MS RN NOTE RECEIVED CALL FROM LAB, HGB-6.8 AWARE
[2018-03-31 13:13] LABS: EOSINOPHILS % (MANUAL) 1 % (0-4); LYMPHOCYTES % (MANUAL) 3 % (16-48); MONOCYTES % (MANUAL) 2 % (0-11.0); NEUTROPHILS % (MANUAL) 94 (42-76)
--- NOTE | 2018-03-31 14:15 | NUR ---
MS RN NOTE VANCOMYCIN STARTED LATE DUE TO VANCO TROUGH NOT AVAILABLE AT SCHEDULED TIME. MADE PHARMACY AWARE
--- NOTE | 2018-03-31 14:54 | NUR ---
MS RN NOTE RECEIVED CALL FROM DR. WRIGHT GAVE TELEPHONE CONSENT FOR SECOND MD SIGNATURE FOR BLOOD TRANSFUSION. RHEA, CHARGE NURSE SECOND WITNESS TO TELEPHONE CONSENT. WILL ADMINISTER BLOOD AND WILL CONTINUE TO MONITOR
[2018-03-31] MEDS ORDERED: NEUTRA PHOS 1 POWD.PACKET NG ONE (15:30)
[2018-03-31] MEDS: ACETAMINOPHEN 325 MG TABLET PO PRN (15:52)
[2018-03-31] MEDS: JEVITY 1.2 CAL 1,000 ML BOTTLE GT SCH (16:28)
--- NOTE | 2018-03-31 17:20 | NUR ---
MS RN NOTE BLOOD TRANSFUSION JUST STARTED. VITALS FOLLOWS PRIOR TO INFUSION. BP: 114/66, P: 1O2, T: 98.9, O2: 100%, R:18. WILL CONTINUE TO MONITOR
--- NOTE | 2018-03-31 18:41 | NUR ---
MS RN NOTE PATIENT IS RESTING COMFORTABLY AT THIS TIME. NO FACIAL GRIMACING NOTED. NO SOB OR DISTRESS NOTED. ON COOL AEROSOL AT 5LPM TOLERATING WELL. ALL DUE MEDICATIONS GIVEN ORDERED. ALL NURSING CARE NEEDS ATTENDED TO NEEDED. G-TUBE SITE INTACT AND PATENT, DRESSING CHANGED. TUBE FEEDING: JEVITY 1.2 AT 50ML/HR. NO RESIDUAL NOTED. WOUND TREATMENT CHANGED ON SHIFT. BLOOD TRANSFUSING AT THIS TIME, TOLERATING WELL NO REACTIONS NOTED WITHIN FIRST 15 MINS OR Q1H. IV INTACT AND PATENT NO REDNESS OR SWELLING NOTED, IV FLUIDS RUNNING AT THIS TIME. MONTERO CATHETER IN PLACE AT THIS TIME, DRAINING WELL WITH CLEAR YELLOW URINE. WILL ENDORSE TO UMBRELLA SUPERVISOR NURSE FOR GUILLERMO
--- NOTE | 2018-03-31 18:47 | NUR ---
LAST NOTE WAS CLOSING NOTE
--- NOTE | 2018-03-31 19:40 | NUR ---
RN OPENING NOTES RECEIVED REPORT FROM ANDREAAKMATTI YE. FOUND Pt IN BED. NO S/S OF ACUTE DISTRESS OR SOB NOTED. Pt IS OBTUNDED, NON-VERBAL, OPENS EYES, WITHDRAWS TO PAIN AND SUCTIONING. Pt IS ON TRACH ON COOL AEROSOL @5LPM. MONTERO CATHETER IN PLACE, DRAINING WELL. IV ACCESS ON L PINKY #22G & CHANTALE #20G & RFA #22G; IVF NS @100ML/HR. ON GTF JEVITY @50ML/[id number]: OFF AT 12PM ON AT 1600. SAFETY MEASURES IN PLACE. BED LOW, LOCKED, HOB ELEVATED, SIDE RAILS UP, CALL LIGHT AND BEDSIDE TABLE WITHIN REACH. WILL CONTINUE TO MONITOR Pt THROUGHOUT THE NIGHT FOR SAFETY.
--- NOTE | 2018-03-31 21:05 | NUR ---
RN NOTES BLOOD TRANSFUSION FINISHED. VS STABLE. BP 122/71, HR 114, R 20, T 98.4, 0S 98%. WILL CONTINUE TO MONITOR Pt THROUGHOUT THE NIGHT.
[2018-03-31] MEDS: MAGNESIUM OXIDE 400 MG TABLET GT SCH (22:22)
[2018-03-31 22:42] LABS: EOSINOPHILS % (AUTO) 0.8 % (0.0-6.0); HEMATOCRIT 25 % (33-45); HEMOGLOBIN 8.3 g/dL (11.5-14.8); LYMPHOCYTES # (AUTO) 1.6 /CMM (0.8-4.8); LYMPHOCYTES % (AUTO) 7.8 % (20.0-44.0); MEAN CORPUSCULAR HGB CONC 34 g/dl (31.0-36.0); MEAN CORPUSCULAR VOLUME 84 fL (82-100); MONOCYTES # (AUTO) 1.8 /CMM (0.1-1.30); MONOCYTES % (AUTO) 8.8 % (2.0-12.0); NEUTROPHILS # (AUTO) 16.5 /CMM (1.8-8.9); NEUTROPHILS % (AUTO) 82.6 % (43.0-81.0); PLATELET COUNT (AUTO) 496 /CMM (150-450); RDW COEFFICIENT OF VARIATION 15.1 (11.5-15.0); RED BLOOD CELL COUNT(AUTO) 2.93 MIL/uL (4.0-5.2)
[2018-04-01 01:35] LABS: EOSINOPHILS % (MANUAL) 2 % (0-4); LYMPHOCYTES % (MANUAL) 6 % (16-48); METAMYELOCYTES % 1 % (0-0); MONOCYTES % (MANUAL) 9 % (0-11.0); NEUTROPHILS % (MANUAL) 82 (42-76)
[2018-04-01] MEDS: VANCOMYCIN 0.75 GM in IV NS 0.9% 250 ML IV SCH ×3 (04:14→20:37)
[2018-04-01] MEDS: MEROPENEM 500 MG in IV NS 0.9% 50 ML IV SCH ×3 (05:20→21:12)
[2018-04-01] MEDS: GLYCOPYRROLATE 1 MG TABLET GT SCH ×4 (05:24→23:13)
--- NOTE | 2018-04-01 06:24 | NUR ---
RN CLOSING NOTES NO SIGNIFICANT CHANGES IN Pt's CONDITION. Pt REMAINS STABLE AT THIS TIME. NO S/S OF ACUTE DISTRESS OR SEVERE SOB NOTED DURING THE NIGHT. NO FEVER SPIKES AT THIS TIME. ALL NEEDS MET AND ATTENDED TO. SAFETY MEASURES IN PLACE. WILL ENDORSE TO DAYSHIFT RN FOR Pt's GUILLERMO.
[2018-04-01 06:43] LABS: BASOPHILS % (AUTO) 0.1 % (0.0-2.0); EOSINOPHILS % (AUTO) 0.8 % (0.0-6.0); HEMATOCRIT 24 % (33-45); HEMOGLOBIN 8.1 g/dL (11.5-14.8); LYMPHOCYTES # (AUTO) 1.7 /CMM (0.8-4.8); LYMPHOCYTES % (AUTO) 11.3 % (20.0-44.0); MEAN CORPUSCULAR HGB CONC 34 g/dl (31.0-36.0); MEAN CORPUSCULAR VOLUME 84 fL (82-100); MONOCYTES # (AUTO) 1.7 /CMM (0.1-1.30); MONOCYTES % (AUTO) 11.6 % (2.0-12.0); NEUTROPHILS # (AUTO) 11.4 /CMM (1.8-8.9); NEUTROPHILS % (AUTO) 76.2 % (43.0-81.0); PLATELET COUNT (AUTO) 506 /CMM (150-450); RDW COEFFICIENT OF VARIATION 15.4 (11.5-15.0); RED BLOOD CELL COUNT(AUTO) 2.86 MIL/uL (4.0-5.2); WHITE BLOOD COUNT (AUTO) 14.9 K/uL (4.3-11.0)
[2018-04-01 07:04] LABS: CREATININE 0.7 mg/dL (0.6-1.3); MAGNESIUM 1.9 mg/dL (1.8-2.4); PHOSPHORUS 2.3 mg/dL (2.5-4.9); POTASSIUM 3.6 mmol/L (3.5-5.1)
--- NOTE | 2018-04-01 07:42 | NUR ---
RN OPEN NOTES RECEIVED A BEDSIDE REPORT FROM CEMENT SPRAYER HELPER NURSE. PATIENT IS IN BED, AWAKE. AEROSAL AT 5L. GASTRIC TUBE FEEDING AT 50ML/HR - TO BE STOP AT NOON AND RE-STARTED AT 4PM. SUCTIONED PATIENT AT BEDSIDE. BED IN LOW POSITION, LOCKED AND TWO SIDE RAILS ARE UP FOR SAFETY. WILL CONTINUE TO MONITOR AND ASSESS PATIENT
[2018-04-01 08:39] VITALS: BP 124/70
[2018-04-01] MEDS: ASCORBIC ACID 500 MG TABLET GT SCH (08:52)
[2018-04-01] MEDS: LACTOBACILLUS RHAMNOSUS GG 1 EACH CAP.SPRINK PO SCH ×2 (08:52→16:34)
[2018-04-01] MEDS: LACOSAMIDE 50 MG TABLET GT SCH ×2 (08:52→21:15)
[2018-04-01] MEDS: ENOXAPARIN SODIUM 60 MG/0.6 ML DISP.SYRIN SQ SCH ×2 (08:53→21:00)
--- NOTE | 2018-04-01 08:53 | NUR ---
LOVENOX HELD DUE TO LOW H/H AND S/P BLOOD TRANSFUSION
[2018-04-01] MEDS: IV NS 0.9% 1,000 ML IV PRN ×2 (08:59→20:39)
[2018-04-01] MEDS: LEVETIRACETAM (250 MG) 250 MG TABLET PO SCH ×2 (09:29→23:12)
[2018-04-01] MEDS: LEVOFLOXACIN 750 MG /D5W 150ML 750 MG in PREMIX 1 EA IV SCH (10:02)
--- NOTE | 2018-04-01 12:30 | NUR ---
FEEDING HELD AT 12:30PM. TO BE RESUMED AT 4:30PM
[2018-04-01] MEDS ORDERED: Sodium Phosphate 15 MMOL in IV D5W 250 ML IV ONE (16:00)
[2018-04-01 16:22] VITALS: BP 95/51
[2018-04-01] MEDS: JEVITY 1.2 CAL 1,000 ML BOTTLE GT SCH (16:29)
--- NOTE | 2018-04-01 16:30 | NUR ---
FEEDING RESUMED ORDERED. NPO FROM MIDNIGHT
--- NOTE | 2018-04-01 19:00 | NUR ---
RN OPENING NOTES RECEIVED IN BED. STABLE NO S/S OF ACUTE DISTRESS OR SOB NOTED. OBTUNDED, NON-VERBAL, OPENS EYES, WITHDRAWS TO PAIN. TRACH ON COOL AEROSOL @5LPM. O2 SAT 100% SAFETY MEASURES IN PLACE. BED LOW LOCKED, HOB ELEVATED, SIDE RAILS UP, CALL LIGHT AND BEDSIDE TABLE WITHIN REACH. WILL CONTINUE TO MONITOR THROUGHOUT THE NIGHT FOR SAFETY.
--- NOTE | 2018-04-01 19:17 | NUR ---
RN CLOSING NOTES ENDORSED TO EDITOR FARM JOURNAL RN. PATIENT IS IN BED, OBTUNDED. BED IN LOW POSITION, LOCKED AND TWO SIDE RAILS ARE UP FOR SAFETY. NO SIGNS AND SYMPTOMS OF DISTRESS. PATIENT KEPT SAFE, CLEAN AND DRY. ALL NURSING CARE ANTICIPATED AND ATTENDED FOR.
[2018-04-01 20:00] VITALS: BP 106/59
--- NOTE | 2018-04-01 20:00 | NUR ---
temp 100.3 cooling measures provided
[2018-04-01] MEDS: ACETAMINOPHEN 325 MG TABLET PO PRN (21:09)
[2018-04-01] MEDS: MAGNESIUM OXIDE 400 MG TABLET GT SCH (21:12)
--- NOTE | 2018-04-01 21:30 | NUR ---
temperature now 98.7
--- NOTE | 2018-04-01 22:00 | NUR ---
PER NURSE PRACTITIONER BILLY PAULINO DUE TO LOW H/H AND SURGERY TOMORROW Addendum: 04/02/18 at 0624 by ODESSA WEISS RN US NEEDLE GUIDED BIOPSY
[2018-04-02] MEDS: VANCOMYCIN 0.75 GM in IV NS 0.9% 250 ML IV SCH ×3 (03:51→20:15)
[2018-04-02] MEDS: MEROPENEM 500 MG in IV NS 0.9% 50 ML IV SCH ×3 (05:12→22:34)
[2018-04-02] MEDS: GLYCOPYRROLATE 1 MG TABLET GT SCH ×4 (05:48→23:24)
[2018-04-02 06:10] VITALS: BP 100/61
--- NOTE | 2018-04-02 06:18 | NUR ---
MS RN CLOSING NOTES ASLEEP AND EASILY AWAKEN, HOB ELEVATED, STABLE NO S/S OF ACUTE DISTRESS OR SOB NOTED. OBTUNDED, NON-VERBAL, OPENS EYES, WITHDRAWS TO PAIN. TRACH ON COOL AEROSOL @5LPM. O2 SAT 100% RESPIRATIONS EVEN AND UNLABORED. SUCTIONED PRN. NEEDS ATTENDED AND ANTICIPATED, AM CARE PROVIDED. AFEBRILE, KEPT CLEAN AND DRY AND COMFORTABLE. VSS. REPOSITION EVERY 2 HOURS GOOD SKIN CARE PROVIDED. MAINTAINS NPO SINCE MIDNIGHT, SAFETY MEASURES IN PLACE. BED LOW LOCKED SIDE RAILS UP, CALL LIGHT AND BEDSIDE TABLE WITHIN REACH. ENDORSE TO THE NEXT SHIFT POC.
[2018-04-02 06:37] LABS: EOSINOPHILS % (AUTO) 0.5 % (0.0-6.0); HEMATOCRIT 29 % (33-45); HEMOGLOBIN 9.4 g/dL (11.5-14.8); LYMPHOCYTES # (AUTO) 1.3 /CMM (0.8-4.8); LYMPHOCYTES % (AUTO) 7.9 % (20.0-44.0); MEAN CORPUSCULAR HGB CONC 33 g/dl (31.0-36.0); MEAN CORPUSCULAR VOLUME 85 fL (82-100); MONOCYTES # (AUTO) 0.7 /CMM (0.1-1.30); MONOCYTES % (AUTO) 4.5 % (2.0-12.0); NEUTROPHILS # (AUTO) 13.8 /CMM (1.8-8.9); NEUTROPHILS % (AUTO) 87.1 % (43.0-81.0); PLATELET COUNT (AUTO) 516 /CMM (150-450); RDW COEFFICIENT OF VARIATION 15.3 (11.5-15.0); RED BLOOD CELL COUNT(AUTO) 3.35 MIL/uL (4.0-5.2); WHITE BLOOD COUNT (AUTO) 15.9 K/uL (4.3-11.0)
[2018-04-02 07:11] LABS: CALCIUM, SERUM 8.3 mg/dL (8.5-10.1); CREATININE 0.7 mg/dL (0.6-1.3); PHOSPHORUS 3.2 mg/dL (2.5-4.9)
--- NOTE | 2018-04-02 07:30 | NUR ---
RN OPEN NOTES RECEIVED REPORT FROM PULLEY WORKER NURSE. PATIENT IS IN BED, AWAKE. NO SIGNS AND SYMPTOMS OF DISTRESS. BED IN LOW POSITION, LOCKED AND TWO SIDE RAILS ARE UP. CALL LIGHT WITHIN REACH FOR SAFETY. WILL CONTINUE TO ASSESS AND MONITOR PATIENT.
[2018-04-02] MEDS: ACETAMINOPHEN 650 MG/SUPP.RECT RC PRN (07:44)
--- NOTE | 2018-04-02 07:50 | NUR ---
PATIENT HAS A FEVER 101.7. NAZARIO DINH MADE AWARE. PER ALLEGRA LANGE, SURGERY TO PROCEED SCHEDULED
[2018-04-02 08:00] VITALS: BP 125/73
--- NOTE | 2018-04-02 08:10 | NUR ---
TYLENOL SUPPOSITORY ADMINISTERED TO CONTROL FEVER
[2018-04-02] MEDS: LACTOBACILLUS RHAMNOSUS GG 1 EACH CAP.SPRINK PO SCH ×2 (08:16→16:50)
[2018-04-02] MEDS: ASCORBIC ACID 500 MG TABLET GT SCH (08:16)
[2018-04-02] MEDS: ENOXAPARIN SODIUM 60 MG/0.6 ML DISP.SYRIN SQ SCH ×2 (08:16→22:35)
[2018-04-02] MEDS: LACOSAMIDE 50 MG TABLET GT SCH ×2 (08:16→20:15)
[2018-04-02] MEDS: LEVETIRACETAM (250 MG) 250 MG TABLET PO SCH ×2 (08:17→22:34)
[2018-04-02] MEDS ORDERED: FENTANYL PF 250MCG/5ML AMPUL IV ONE (10:00)
[2018-04-02] MEDS ORDERED: NALOXONE PREFILLED SYRINGE 2 MG/2 ML SYRINGE IV ONE (10:00)
[2018-04-02] MEDS ORDERED: MIDAZOLAM HCL 5MG/ML VIAL 25 MG/5 ML VIAL IV ONE (10:00)
--- NOTE | 2018-04-02 10:18 | NUR ---
RADIOLOGY AT BEDSIDE TO SHERIFF DEPUTY PATIENT FOR THE PROCEDURE
[2018-04-02 10:33] LABS: INR 0.95 (0.87-1.13)
[2018-04-02] MEDS ORDERED: LIDOCAINE HCL/PF 1% 30 ML SDV ONE (10:58)
--- NOTE | 2018-04-02 11:19 | NUR ---
PATIENT IS STILL ABSENT FROM THE FLOOR FOR PROCEDURE
--- NOTE | 2018-04-02 12:02 | NUR ---
PATIENT RETUNED TO UNIT.
[2018-04-02] MEDS: LEVOFLOXACIN 750 MG /D5W 150ML 750 MG in PREMIX 1 EA IV SCH (12:06)
[2018-04-02] MEDS: JEVITY 1.2 CAL 1,000 ML BOTTLE GT SCH (12:27)
[2018-04-02 16:00] VITALS: BP 121/67
[2018-04-02] MEDS: IV NS 0.9% 1,000 ML IV PRN (16:50)
--- NOTE | 2018-04-02 18:18 | NUR ---
RN CLOSING NOTES PATIENT IS IN BED, OBTUNDED. S/P NEPHROSTOMY. BED IN LOW POSITION, LOCKED AND TWO SIDE RAILS ARE UP FOR SAFETY. NO SIGNS AND SYMPTOMS OF DISTRESS. PATIENT KEPT SAFE, CLEAN AND DRY. ALL NURSING CARE ANTICIPATED AND ATTENDED FOR. WILL ENDORSE TO IRRIGATION DISTRICT MANAGER NURSE
--- NOTE | 2018-04-02 19:55 | NUR ---
RN INITIAL NOTES: RECEIVED REPORT FROM MAYNOR LOUIE, PT IN BED, OBTUNDED, NON VERBAL, PORTEX #7, ON TPIECE COOL AEROSOL 5L, FIO2 28%, ON CONTINUOS PULSE OX MONITORING SPO2 100%. S/P CT GUIDED NEPHROSTOMY TUBE PLACEMENT 04/02/18, DRESSING RIGHT LATERAL BACK C/D/I, NO ACTIVE BLEEDING NOTED, NEPHROSTOMY TUBE DRAINAGE NOTED TO BE PINKISH IN COLOR, PT HAS MONTERO CATHETER IN PLACED NOTED TO BE KAN COLORED, NO HEMATURIA NOTED. IV ACCESS PATENT AND FLUSHING WELL, INFUSING WITH NS AT 100ML/HR. PT HAS GTUBE IN PLACED CURRENTLY RECEIVING FEEDING, JEVITY 1.2 50CC/HR X20HR. BLE OFFLOADED. SAFETY PRECAUTIONS FOR FALL INITIATED, CALL LIGHT IN REACH, WILL CONTINUE MONITORING PT.
[2018-04-02 20:00] VITALS: BP 113/59
--- NOTE | 2018-04-02 20:15 | NUR ---
GTUBE PATENCY CHECK: CHECKED GTUBE PATENCY, PT'S ABDOMEN IS SOFT TO TOUCH WITH ACTIVE BOWEL SOUND NOTED UPON AUSCULTATION. NO RESIDUAL OBTAINED. DUE MEDS GIVEN AT THIS TIME.
--- NOTE | 2018-04-02 20:25 | NUR ---
RN NOTES: RECEIVED CALL FROM DR EVANS, ASKING IF PT HAS ANY HISTORY OF HEPATITIS OR HIV, PULLED OUT PT'S H&P, NO NOTES REGARDING HX OF HEPATITIS OR HIV, BUT THERE ARE WORK UP FOR HIV AND HEP C THAT ARE AWAITING RESULT.
[2018-04-02] MEDS: ACETAMINOPHEN 325 MG TABLET PO PRN (20:35)
--- NOTE | 2018-04-02 20:36 | NUR ---
PRN TYLENOL: PT NOTED TO HAVE 100.3 TEMPERATURE, RECHECK AT THIS TIME, RESULT IS 100.8, ICE PACKED PROVIDED TO THE PT, REMOVED EXCESS THICK BLANKET, MAKE THE ROOM COOLER, PRN TYLENOL 650MG ADMINISTERED VIA GTUBE. WILL CONTINUE MONITORING PT'S TEMPERATURE
--- NOTE | 2018-04-02 20:54 | NUR ---
NEPHROSTOMY TUBE: EMPTIED NEPHROSTOMY TUBE BAG 450ML OF PINKISH COLORED URINE WITH NOTED SEDIMENTS.
--- NOTE | 2018-04-02 21:00 | NUR ---
RN NOTES: PREOXYGENATE PT BEFORE SUCTIONING, SUCTION ORAL SECRETIONS AND TRACHEAL SECRETIONS NEEDED, ORAL CARE PROVIDED AFTERWARDS. NOTED THICK WHITISH SECRETIONS.
--- NOTE | 2018-04-02 21:30 | NUR ---
RN NOTES: BED BATH PROVIDED TO TGHE PT USING COLD WATER TO HELP BRING THE TEMPERATURE TO NORMAL.
[2018-04-02] MEDS: MAGNESIUM OXIDE 400 MG TABLET GT SCH (22:34)
[2018-04-03] MEDS: VANCOMYCIN 0.75 GM in IV NS 0.9% 250 ML IV SCH ×2 (03:24→11:56)
[2018-04-03] MEDS: IV NS 0.9% 1,000 ML IV PRN ×2 (03:32→19:19)
[2018-04-03 04:00] VITALS: BP 122/61
--- NOTE | 2018-04-03 04:06 | NUR ---
RN NOTES: NOTED 99.7 TEMPERATURE, LOW GRADE, COOLING MEASURES PROVIDED, COLD BED BATH PROVIDED TO THE PT, WILL RECHECKED PT'S TEMPERATURE
[2018-04-03] MEDS: GLYCOPYRROLATE 1 MG TABLET GT SCH ×4 (04:56→23:49)
[2018-04-03] MEDS: MEROPENEM 500 MG in IV NS 0.9% 50 ML IV SCH ×3 (04:56→21:22)
[2018-04-03 06:20] VITALS: BP 120/67
--- NOTE | 2018-04-03 06:51 | NUR ---
RN CLOSING NOTES: PT IN BED, REMAINS ON T-PIECE 5L SPO2 REMAINS 100%. LATEST TEMP IS 98.9. SIDE RAILS REMAIN PADDED. SUCTION SET UP IN PLACED. IV ACCESS REMAINS PATENT AND FLUSHING WELL, RFA IV ACCESS REMAIN INFUSING WITH NS AT 100ML/HR. NEPHROSTOMY TUBE DRESSING REMAINS C/D/I, NO ACTIVE BLEEDING NOTED, NEPHROSTOMY BAG EMPTIED AT THIS TIME, DRAINAGE CLEAR IN COLOR, TOTAL OF 1700ML OUTPUT FOR 12HRS SHIFT. MONTERO CATHETER REMAINS IN PLACED, BAG EMPTIED BY AMPOULE FILLER, NO HEMATURIA NOTED THROUGHOUT THE SHIFT. BLE OFFLOADED. VS REMAINS STABLE, NEEDS ATTENDED. SAFETY PRECAUTIONS FOR FALL REMAINS ENGAGED, CALL LIGHT IN REACH, WILL ENDORSE TO DAY RN FOR GUILLERMO.
--- NOTE | 2018-04-03 07:29 | NUR ---
RN OPEN NOTES RECEIVED REPORT FROM COMMAND AND CONTROL SPECIALIST NURSE. PATIENT IS IN BED, AWAKE. NO SIGNS AND SYMPTOMS OF DISTRESS. BED IN LOW POSITION, LOCKED AND TWO SIDE RAILS ARE UP. CALL LIGHT WITHIN REACH FOR SAFETY. WILL CONTINUE TO ASSESS AND MONITOR PATIENT.
[2018-04-03 08:00] VITALS: BP 120/66
[2018-04-03] MEDS: ASCORBIC ACID 500 MG TABLET GT SCH (08:25)
[2018-04-03] MEDS: LACOSAMIDE 50 MG TABLET GT SCH ×2 (08:25→21:22)
[2018-04-03] MEDS: LACTOBACILLUS RHAMNOSUS GG 1 EACH CAP.SPRINK PO SCH ×2 (08:25→17:05)
[2018-04-03] MEDS: ENOXAPARIN SODIUM 60 MG/0.6 ML DISP.SYRIN SQ SCH ×2 (08:26→21:23)
[2018-04-03] MEDS: LEVETIRACETAM (250 MG) 250 MG TABLET PO SCH ×2 (10:27→22:10)
[2018-04-03] MEDS: LEVOFLOXACIN 750 MG /D5W 150ML 750 MG in PREMIX 1 EA IV SCH (10:30)
[2018-04-03 11:07] LABS: BASOPHILS % (AUTO) 0.2 % (0.0-2.0); HEMATOCRIT 25 % (33-45); HEMOGLOBIN 8.3 g/dL (11.5-14.8); LYMPHOCYTES # (AUTO) 2.1 /CMM (0.8-4.8); LYMPHOCYTES % (AUTO) 15.9 % (20.0-44.0); MEAN CORPUSCULAR HGB CONC 33 g/dl (31.0-36.0); MEAN CORPUSCULAR VOLUME 84 fL (82-100); MONOCYTES # (AUTO) 1.4 /CMM (0.1-1.30); MONOCYTES % (AUTO) 10.6 % (2.0-12.0); NEUTROPHILS # (AUTO) 9.7 /CMM (1.8-8.9); NEUTROPHILS % (AUTO) 72.3 % (43.0-81.0); PLATELET COUNT (AUTO) 651 /CMM (150-450); RDW COEFFICIENT OF VARIATION 15.3 (11.5-15.0); RED BLOOD CELL COUNT(AUTO) 2.99 MIL/uL (4.0-5.2); WHITE BLOOD COUNT (AUTO) 13.4 K/uL (4.3-11.0)
[2018-04-03 11:23] LABS: CREATININE 0.6 mg/dL (0.6-1.3); MAGNESIUM 1.9 mg/dL (1.8-2.4); PHOSPHORUS 2.6 mg/dL (2.5-4.9); POTASSIUM 3.3 mmol/L (3.5-5.1)
[2018-04-03] MEDS: JEVITY 1.2 CAL 1,000 ML BOTTLE GT SCH (15:12)
[2018-04-03 16:00] VITALS: BP 103/71
--- NOTE | 2018-04-03 18:30 | NUR ---
HOLD DISCHARGE ORDER. [facility] DID NOT ACCEPT PATIENT AFTER MD-MD CONVERSATION.
--- NOTE | 2018-04-03 18:45 | NUR ---
PATIENT POTASSIUM LEVEL 3.3. ALLEGRA MINOR AWARE. ORDER RECEIVED AND WILL CARRIED OUT.
[2018-04-03] MEDS ORDERED: ACETAMINOPHEN 650 MG/20.3 ML UDC GT SCH (19:27)
[2018-04-03] MEDS ORDERED: POTASSIUM CHLORIDE 20 MEQ POWDER PACKET GT ONE (19:30)
--- NOTE | 2018-04-03 19:30 | NUR ---
102.7 FEVER. ADMINISTERED ACETAMINOPHEN. COOLING MEASURES APPLIED. NIGHT RN AWARE AND CALLED [facility]
--- NOTE | 2018-04-03 19:35 | NUR ---
MS/RN NOTES RECEIVED PT. LYING IN BED. PT. IS NON-VERBAL OBTUNDED. PT. WITH TRACH, T PIECE PRESENT, PATENT AND INTACT. PT. ON 5LPM COOL AEROSOL. BREATHING EVEN AND UNLABORED. NO SOB, RESPIRATORY DISTRESS OR S/S OF PAIN NOTED AT THIS TIME. PER DAYSHIFT NURSE PT. WITH FEVER OF 102.7F, COOLING MEASURES IMPLEMENTED, WILL CALL AND NOTIFY [facility] BANKRUPTCY ATTORNEY. PT. WITH RIGHT FOREARM 22 GAUGE PERIPHERAL IV PRESENT, PATENT AND INTACT ADMINISTERING TO PT. NS @ 100ML/HR, PT. WITH LEFT PINKY 20 GAUGE IV SALINE LOCK PRESENT, PATENT AND INTACT, PT. WITH LEFT AC 20 GAUGE IV SALINE LOCK PRESENT, PATENT AND INTACT. PT. WITH NEPHROSTOMY TUBE PRESENT, PATENT AND INTACT. PT. WITH MONTERO CATHETER PRESENT, PATENT AND INTACT DRAINING CLEAR, YELLOW URINE. PT. WITH G-TUBE PRESENT, PATENT AND INTACT ADMINISTERING TO PT. JEVITY 1.2CAL @ 50ML/HR. PT. TOLERATING WELL. NO RESIDUAL NOTED AT THIS TIME. BED LOCKED AND IN LOWEST POSITION, SIDE RAILS UP X3, BED ALARM ON, WILL CONTINUE TO MONITOR.
--- NOTE | 2018-04-03 19:59 | NUR ---
MS/RN NOTES NOTIFIED [facility] ECONOMIC SPECIALIST NAZARIO JARRETT PT. HAS FEVER OF 102.7F, PT. RECEIVED TYLENOL ORDERED, COOLING MEASURES IMPLEMENTED AND IN PLACE. PT. HEART RATE 115. BP WNL. PT. MOST RECENT BLOOD CULTURE FROM 03/30/18. PT. IS CURRENTLY RECEIVING MERREM AND LEVAQUIN ANTIBIOTICS. PER NAZARIO JARRETT NEW ORDER: STAT BLOOD CULTURE. WILL CARRY OUT ORDERS. WILL CONTINUE TO IMPLEMENT COOLING MEASURES AND CONTINUE TO MONITOR TEMPERATURE.
[2018-04-03 20:00] VITALS: BP 115/58
--- NOTE | 2018-04-03 20:01 | NUR ---
RN CLOSING NOTES PATIENT IS IN BED, OBTUNDED. BED IN LOW POSITION, LOCKED AND TWO SIDE RAILS ARE UP FOR SAFETY. NO SIGNS AND SYMPTOMS OF DISTRESS. PATIENT KEPT SAFE, CLEAN AND DRY. ALL NURSING CARE ANTICIPATED AND ATTENDED FOR. ENDORSED TO ANDROID SOFTWARE ENGINEER NURSE
--- NOTE | 2018-04-03 21:00 | NUR ---
MS/RN NOTES PT. BREATHING EVEN AND UNLABORED. NO SOB, RESPIRATORY DISTRESS OR S/S OF PAIN NOTED AT THIS TIME. COOLING MEASURES IMPLEMENTED AND IN PLACE. PT. CURRENT TEMPERATURE = 100.1F. WILL CONTINUE COOLING MEASURES AND WILL CONTINUE TO MONITOR.
[2018-04-03] MEDS: MAGNESIUM OXIDE 400 MG TABLET GT SCH (21:22)
--- NOTE | 2018-04-03 22:00 | NUR ---
MS/RN NOTES COOLING MEASURES IMPLEMENTED AND IN PLACE. PT. CURRENT TEMPERATURE = 99.7F. WILL CONTINUE COOLING MEASURES AND WILL CONTINUE TO MONITOR.
[2018-04-04] MEDS: IV NS 0.9% 1,000 ML IV PRN ×2 (05:44→18:08)
[2018-04-04] MEDS: MEROPENEM 500 MG in IV NS 0.9% 50 ML IV SCH (05:44)
[2018-04-04] MEDS: GLYCOPYRROLATE 1 MG TABLET GT SCH ×3 (06:11→17:53)
--- NOTE | 2018-04-04 06:39 | NUR ---
MS/RN NOTES PT. IS LYING IN BED RESTING WITH EYES CLOSED. PT. IS NON-VERBAL OBTUNDED. PT. WITH TRACH, T PIECE PRESENT, PATENT AND INTACT. PT. ON 5LPM COOL AEROSOL. BREATHING EVEN AND UNLABORED. NO SOB, RESPIRATORY DISTRESS OR S/S OF PAIN NOTED AT THIS TIME. PT. WITH RIGHT FOREARM 22 GAUGE PERIPHERAL IV PRESENT, PATENT AND INTACT ADMINISTERING TO PT. NS @ 100ML/HR, PT. WITH LEFT PINKY 20 GAUGE IV SALINE LOCK PRESENT, PATENT AND INTACT, PT. WITH LEFT AC 20 GAUGE IV SALINE LOCK PRESENT, PATENT AND INTACT. PT. WITH NEPHROSTOMY TUBE PRESENT, PATENT AND INTACT. PT. WITH MONTERO CATHETER PRESENT, PATENT AND INTACT DRAINING CLEAR, YELLOW URINE. PT. WITH G-TUBE PRESENT, PATENT AND INTACT ADMINISTERING TO PT. JEVITY 1.2CAL @ 50ML/HR. PT. TOLERATING WELL. NO RESIDUAL NOTED AT THIS TIME AND THROUGHOUT SHIFT. ALL PT. NEEDS MET. PT. OFFLOADED, TURNED AND REPOSITIONED Q2H AND NEEDED.BED LOCKED AND IN LOWEST POSITION, SIDE RAILS UP X3, BED ALARM ON, WILL ENDORSE TO DAYSNCFT NURSE FOR CONTINUITY OF CARE.
[2018-04-04 08:00] VITALS: BP 109/62
--- NOTE | 2018-04-04 09:00 | NUR ---
m/s corner cutter machine operator: neuro f/u seen by dr. correia at this time.
[2018-04-04] MEDS: LACTOBACILLUS RHAMNOSUS GG 1 EACH CAP.SPRINK PO SCH ×2 (09:48→17:53)
[2018-04-04] MEDS: ASCORBIC ACID 500 MG TABLET GT SCH (09:48)
[2018-04-04] MEDS: LEVETIRACETAM (250 MG) 250 MG TABLET PO SCH ×2 (09:48→22:48)
[2018-04-04] MEDS: JEVITY 1.2 CAL 1,000 ML BOTTLE GT SCH (09:53)
[2018-04-04] MEDS: LACOSAMIDE 50 MG TABLET GT SCH ×2 (09:53→21:31)
[2018-04-04] MEDS: ENOXAPARIN SODIUM 60 MG/0.6 ML DISP.SYRIN SQ SCH ×2 (09:54→21:32)
--- NOTE | 2018-04-04 10:30 | NUR ---
m/s technology advisor: pulmo f/u seen by dr. sheikh at this time.
[2018-04-04] MEDS: LEVOFLOXACIN 750 MG /D5W 150ML 750 MG in PREMIX 1 EA IV SCH (11:27)
--- NOTE | 2018-04-04 11:30 | NUR ---
m/s academic hospitalist: md visit seen and examined by ashlie (arsen) at this time. transfer still pending per case management.
[2018-04-04 11:36] LABS: BASOPHILS % (AUTO) 0.3 % (0.0-2.0); EOSINOPHILS % (AUTO) 1.4 % (0.0-6.0); HEMATOCRIT 26 % (33-45); HEMOGLOBIN 8.5 g/dL (11.5-14.8); LYMPHOCYTES # (AUTO) 2.3 /CMM (0.8-4.8); LYMPHOCYTES % (AUTO) 17.5 % (20.0-44.0); MEAN CORPUSCULAR HGB CONC 33 g/dl (31.0-36.0); MEAN CORPUSCULAR VOLUME 85 fL (82-100); MONOCYTES # (AUTO) 1.5 /CMM (0.1-1.30); MONOCYTES % (AUTO) 11.5 % (2.0-12.0); NEUTROPHILS # (AUTO) 8.9 /CMM (1.8-8.9); NEUTROPHILS % (AUTO) 69.3 % (43.0-81.0); PLATELET COUNT (AUTO) 789 /CMM (150-450); RDW COEFFICIENT OF VARIATION 15.1 (11.5-15.0); WHITE BLOOD COUNT (AUTO) 12.9 K/uL (4.3-11.0)
[2018-04-04 11:57] LABS: CALCIUM, SERUM 8.3 mg/dL (8.5-10.1); CREATININE 0.5 mg/dL (0.6-1.3); MAGNESIUM 1.9 mg/dL (1.8-2.4); PHOSPHORUS 2.6 mg/dL (2.5-4.9); POTASSIUM 3.8 mmol/L (3.5-5.1)
[2018-04-04] MEDS: MEROPENEM 1 G in IV NS 0.9% 100 ML IV SCH ×2 (13:06→21:31)
[2018-04-04 16:00] VITALS: BP 123/69
--- NOTE | 2018-04-04 19:20 | NUR ---
MS/RN NOTES RECEIVED PT. LYING IN BED. PT. IS NON-VERBAL OBTUNDED. PT. WITH TRACH, T PIECE PRESENT, PATENT AND INTACT. PT. ON 5LPM COOL AEROSOL. BREATHING EVEN AND UNLABORED. NO SOB, RESPIRATORY DISTRESS OR S/S OF PAIN NOTED AT THIS TIME. PT. WITH RIGHT FOREARM 22 GAUGE PERIPHERAL IV PRESENT, PATENT AND INTACT ADMINISTERING TO PT. NS @ 100ML/HR, PT. WITH LEFT PINKY 20 GAUGE IV SALINE LOCK PRESENT, PATENT AND INTACT, PT. WITH LEFT AC 20 GAUGE IV SALINE LOCK PRESENT, PATENT AND INTACT. PT. WITH NEPHROSTOMY TUBE PRESENT, PATENT AND INTACT. PT. WITH MONTERO CATHETER PRESENT, PATENT AND INTACT DRAINING CLEAR, YELLOW URINE. PT. WITH G-TUBE PRESENT, PATENT AND INTACT ADMINISTERING TO PT. JEVITY 1.2CAL @ 50ML/HR. PT. TOLERATING WELL. NO RESIDUAL NOTED AT THIS TIME. BED LOCKED AND IN LOWEST POSITION, SIDE RAILS UP X3, BED ALARM ON, WILL CONTINUE TO MONITOR.
[2018-04-04 20:00] VITALS: BP 117/71
[2018-04-04] MEDS: MAGNESIUM OXIDE 400 MG TABLET GT SCH (21:31)
[2018-04-04] MEDS: ACETAMINOPHEN 325 MG TABLET PO PRN (21:40)
[2018-04-05] MEDS: GLYCOPYRROLATE 1 MG TABLET GT SCH ×3 (00:29→12:47)
[2018-04-05] MEDS: MEROPENEM 1 G in IV NS 0.9% 100 ML IV SCH ×2 (05:47→13:45)
[2018-04-05] MEDS: IV NS 0.9% 1,000 ML IV PRN (05:47)
--- NOTE | 2018-04-05 06:28 | NUR ---
MS/RN NOTES PT. IS LYING IN BED RESTING. BREATHING EVEN AND UNLABORED. NO SOB, RESPIRATORY DISTRESS OR S/S OF PAIN NOTED AT THIS TIME. PT. WITH RIGHT FOREARM 22 GAUGE PERIPHERAL IV PRESENT, PATENT AND INTACT ADMINISTERING TO PT. NS @ 100ML/HR, PT. WITH LEFT PINKY 20 GAUGE IV SALINE LOCK PRESENT, PATENT AND INTACT, PT. WITH LEFT AC 20 GAUGE IV SALINE LOCK PRESENT, PATENT AND INTACT. PT. WITH NEPHROSTOMY TUBE PRESENT, PATENT AND INTACT. PT. WITH MONTERO CATHETER PRESENT, PATENT AND INTACT DRAINING CLEAR, YELLOW URINE. PT. WITH G-TUBE PRESENT, PATENT AND INTACT ADMINISTERING TO PT. JEVITY 1.2CAL @ 50ML/HR. PT. TOLERATING WELL. NO RESIDUAL NOTED AT THIS TIME AND THROUGHOUT THE SHIFT. ALL PT. NEEDS MET. BED LOCKED AND IN LOWEST POSITION, SIDE RAILS UP X3, BED ALARM ON, WILL ENDORSE TO DAYSHIFT NURSE FOR CONTINUITY OF CARE.
[2018-04-05 06:57] LABS: BASOPHILS % (AUTO) 0.4 % (0.0-2.0); EOSINOPHILS % (AUTO) 2.4 % (0.0-6.0); HEMATOCRIT 24 % (33-45); LYMPHOCYTES # (AUTO) 1.7 /CMM (0.8-4.8); MEAN CORPUSCULAR HGB CONC 33 g/dl (31.0-36.0); MEAN CORPUSCULAR VOLUME 84 fL (82-100); MONOCYTES # (AUTO) 1.1 /CMM (0.1-1.30); MONOCYTES % (AUTO) 12.4 % (2.0-12.0); NEUTROPHILS # (AUTO) 5.7 /CMM (1.8-8.9); NEUTROPHILS % (AUTO) 65.8 % (43.0-81.0); PLATELET COUNT (AUTO) 815 /CMM (150-450); RDW COEFFICIENT OF VARIATION 15.4 (11.5-15.0); RED BLOOD CELL COUNT(AUTO) 2.88 MIL/uL (4.0-5.2); WHITE BLOOD COUNT (AUTO) 8.7 K/uL (4.3-11.0)
[2018-04-05 07:14] LABS: CALCIUM, SERUM 8.2 mg/dL (8.5-10.1); CREATININE 0.6 mg/dL (0.6-1.3); MAGNESIUM 1.8 mg/dL (1.8-2.4); PHOSPHORUS 2.3 mg/dL (2.5-4.9); POTASSIUM 3.3 mmol/L (3.5-5.1)
--- NOTE | 2018-04-05 07:30 | NUR ---
received pt. non-verbal,obtunded.iv inf. tube feeding infusing.no residual.f/c and nephrostomy tubes to grv. drainage with good output.
[2018-04-05 08:47] VITALS: BP 104/67
[2018-04-05] MEDS ORDERED: POTASSIUM CHLORIDE 20 MEQ TAB.PRT.SR PO SCH (10:00)
[2018-04-05] MEDS: LACOSAMIDE 50 MG TABLET GT SCH (10:38)
[2018-04-05] MEDS: LEVETIRACETAM (250 MG) 250 MG TABLET PO SCH (10:39)
[2018-04-05] MEDS: ASCORBIC ACID 500 MG TABLET GT SCH (10:39)
[2018-04-05] MEDS: LACTOBACILLUS RHAMNOSUS GG 1 EACH CAP.SPRINK PO SCH (10:39)
[2018-04-05] MEDS: ENOXAPARIN SODIUM 60 MG/0.6 ML DISP.SYRIN SQ SCH (10:43)
[2018-04-05] MEDS ORDERED: LACTOBACILLUS RHAMNOSUS GG 1 EACH CAP.SPRINK GT SCH (11:08)
[2018-04-05] MEDS: LEVOFLOXACIN 750 MG /D5W 150ML 750 MG in PREMIX 1 EA IV SCH (11:49)
--- NOTE | 2018-04-05 12:00 | NUR ---
tube feeding off as per orders.
[2018-04-05 12:12] LABS: HEPATITIS Be AB Negative (Negative)
--- NOTE | 2018-04-05 13:00 | NUR ---
urine sent for test.
--- NOTE | 2018-04-05 13:30 | NUR ---
report called to rn at [facility] in [place].received orders from dr. lua.
[2018-04-05] MEDS ORDERED: MERO1VIA IV (13:52)
[2018-04-05] MEDS ORDERED: ENOX60DI SQ (13:52)
[2018-04-05] MEDS ORDERED: LEVO750T21 GT (13:52)
[2018-04-05] MEDS ORDERED: NEUTRA PHOS 1 POWD.PACKET GT ONE (14:00)
--- NOTE | 2018-04-05 15:00 | NUR ---
given potassium supplement for low potassium.
--- NOTE | 2018-04-05 16:25 | NUR ---
given neutra phos for low phosphorous.
[2018-04-05 16:28] VITALS: BP 112/61
--- NOTE | 2018-04-05 16:30 | NUR ---
report to laborer driver and all papers signed.given cd.transported via ambulance to facility.
[2018-04-05] MEDS ORDERED: LEVETIRACETAM SOL (5 ML) 100 MG/ML UDC GT SCH (21:00)
[2018-04-06] MEDS ORDERED: LEVOFLOXACIN (750 MG) 750 MG TABLET GT SCH (09:00)
[2018-04-07 18:10] LABS: HIV-2 AB EIA Negative (Neg:<1.00)
== END 2018-04-05 16:26 | disposition short-term general hospital (02) | DRG 720 ==
LOC: ER 14:38 → TELE 16:29 → MED 03-27 08:21
PROVIDERS: ADMIT Nurse Practitioner Acute Care; ATTEND Nurse Practitioner Acute Care
PROC: 30233N1 Transfusion of Nonautologous Red Blood Cells into Peripheral Vein, Percutaneous Approach (ICD-10-PCS; principal; 2018-03-31)
DX: A41.50 Gram-negative sepsis, unspecified (principal); J96.21 Acute and chronic respiratory failure with hypoxia; G93.41 Metabolic encephalopathy; E43 Unspecified severe protein-calorie malnutrition; Z99.11 Dependence on respirator [ventilator] status; Z93.0 Tracheostomy status; J18.9 Pneumonia, unspecified organism; R13.10 Dysphagia, unspecified; N39.0 Urinary tract infection, site not specified; D63.8 Anemia in other chronic diseases classified elsewhere; Z86.711 Personal history of pulmonary embolism; Z93.1 Gastrostomy status; Z87.820 Personal history of traumatic brain injury; Z87.442 Personal history of urinary calculi; Z87.440 Personal history of urinary (tract) infections; Z79.01 Long term (current) use of anticoagulants; Z79.899 Other long term (current) drug therapy; R31.0 Gross hematuria; D68.9 Coagulation defect, unspecified; Z98.890 Other specified postprocedural states; L98.9 Disorder of the skin and subcutaneous tissue, unspecified; N13.30 Unspecified hydronephrosis; G40.909 Epilepsy, unspecified, not intractable, without status epilepticus; K21.9 Gastro-esophageal reflux disease without esophagitis
CPT/HCPCS: 31720; 36415; 70450-TC; 71045-TC; 80048-TC; 80061-TC; 80076-TC; 80202-TC; 81000-TC; 83605-TC; 83735-TC; 84100-TC; 84703-TC; 85025-TC; 85610-TC; 85730-TC; 86702; 86707; 86803; 86850-TC; 86921-TC; 87040-TC; 87070-TC; 87081-TC; 87086-TC; 87186-TC; 88305-TC; 88312-TC; 94640-TC; A4215; A4216; A4217; A4606; A9563; J1650; J1956; J2060; J2185; J2250; J2310; J2543; J3010; J3370; J3430; J3475; J3490; J7030; J7050; J7060; P9016-BL; Z7610

== ENCOUNTER 2019-03-01 10:25 | Emergency (ER) | payer OTHER ==
[~2019-03-01] VITALS: Ht 157.5 cm; Wt 65.8 kg
[~2019-03-01 10:25] MED LIST: ACET650S26 GT; ALBU2.5V38 IH; ASCO500T9 GT; ENOX60DI SQ; GLYC1TAB12 GT; LACO200T2 GT; LACT-209 GT; LEVE1000 PO; LEVO750T21 GT; MAGN400T6 GT; MERO1VIA IV; SACC250C GT; TRAM50TA2 GT
--- NOTE | 2019-03-01 10:50 | NUR ---
GTUBE RE-INSERTION DONE BY DR. ARREOLA.
[2019-03-01] MEDS ORDERED: DIATR MEGLU/DIATRIZOATE SODIUM 30 ML BOTTLE (GASTROGRAPHIN) PO ONE (11:00)
[2019-03-01] MEDS ORDERED: DIATR MEGLU/DIATRIZOATE SODIUM 30 ML BOTTLE (GASTROGRAPHIN) ONE (11:03)
--- NOTE | 2019-03-01 11:10 | NUR ---
DELIVERER MERCHANDISE AT BEDSIDE FOR XRAY.
--- NOTE | 2019-03-01 12:34 | NUR ---
CALLED [facility] TRANSPORT - ETA [phone]. TRIP#[id number]
--- NOTE | 2019-03-01 14:22 | NUR ---
TALKED TO [facility] [place] [facility] FOR REPORT AND TRANSFER BACK.
[2019-03-01 14:23] VITALS: BP 138/85
== END 2019-03-01 14:25 ==
LOC: ER 10:25
DX: Z43.1 Encounter for attention to gastrostomy (principal); Z79.899 Other long term (current) drug therapy
CPT/HCPCS: 43762; 74018; 99285; A4217; Q9963 ×2

== ENCOUNTER 2020-08-14 12:47 | Inpatient (IN) | payer OTHER ==
[2020-08-14] VITALS (17 sets, daily range): BP systolic 128–137; BP diastolic 78–98
[~2020-08-14] VITALS: Ht 157.5 cm; Wt 66.7 kg
[~2020-08-14 12:47] MED LIST changes: +ASCO-352 GT; -ASCO500T9 GT; +LEVE1000 GT; -LEVE1000 PO; -MAGN400T6 GT; +MAGN400T8 GT
--- NOTE | 2020-08-14 13:30 | NUR ---
bib PA frm snf for abnormal labs, Hgb 6.3, Hct 22. PT NON VERBAL EYES OPEN. VSS. RR EVEN & UNLABORED. PT SEEN & EVAL'D BY DR. ANTUNEZ. PLACED ON MATHEMATICAL TECHNICIAN, SR. PLACED ON VENT, NO RESP DISTRESS NOTED. WILL CONT TO MONITOR.
[2020-08-14 13:44] LABS: HEMATOCRIT 23 % (33-45); MEAN CORPUSCULAR VOLUME 76 fL (82-100); MONOCYTES # (AUTO) 0.4 /CMM (0.1-1.30)
[2020-08-14 13:48] LABS: BASOPHILS % (AUTO) 0.5 % (0.0-2.0); EOSINOPHILS % (AUTO) 3.5 % (0.0-6.0); MEAN CORPUSCULAR HGB CONC 30 g/dl (31.0-36.0); MONOCYTES % (AUTO) 5.2 % (2.0-12.0); NEUTROPHILS # (AUTO) 5.6 /CMM (1.8-8.9); NEUTROPHILS % (AUTO) 76.8 % (43.0-81.0); PLATELET COUNT (AUTO) 613 /CMM (150-450); RED BLOOD CELL COUNT(AUTO) 3.03 MIL/uL (4.0-5.2); WHITE BLOOD COUNT (AUTO) 7.3 K/uL (4.3-11.0)
[2020-08-14 13:50] LABS: HEMOGLOBIN 6.8 g/dL (11.5-14.8)
[2020-08-14 13:54] LABS: CALCIUM, SERUM 8.7 mg/dL (8.5-10.1); CREATININE 0.8 mg/dL (0.6-1.3); POTASSIUM 3.6 mmol/L (3.5-5.1)
[2020-08-14] MEDS ORDERED: METO25TA20 GT (13:54)
[2020-08-14] MEDS ORDERED: ALBU6.7H9 IH ×2 (13:54)
[2020-08-14] MEDS ORDERED: BISA10SU11 RC (13:54)
[2020-08-14] MEDS ORDERED: SODI1TAB66 GT (13:54)
[2020-08-14] MEDS ORDERED: ACET-868 GT (13:54)
[2020-08-14] MEDS ORDERED: ACET-2605 GT (13:54)
[2020-08-14] MEDS ORDERED: SCOP1PAT11 TD (13:54)
[2020-08-14] MEDS ORDERED: NUTR150016 GT (13:54)
[2020-08-14] MEDS ORDERED: NA P133E RC (13:54)
[2020-08-14] MEDS ORDERED: MAGN400O6 GT (13:54)
[2020-08-14] MEDS ORDERED: GUAI400T93 GT (13:54)
[2020-08-14] MEDS ORDERED: DOCU50LI GT (13:54)
[2020-08-14] MEDS ORDERED: ENOX40DI SQ (13:54)
--- NOTE | 2020-08-14 13:55 | NUR ---
CALLED [facility] FOR PANEL. ADMITTING IS MD UMBERTO
[2020-08-14 14:01] LABS: ALBUMIN 1.8 g/dL (3.4-5.0); BILIRUBIN,DIRECT 0.1 mg/dL (0.0-0.2); BILIRUBIN,TOTAL 0.2 mg/dL (0.2-1.0); TOTAL PROTEIN, SERUM 9.1 g/dL (6.4-8.2)
--- NOTE | 2020-08-14 14:46 | NUR ---
CALLED NURSING SUP FOR TELE BED.
[2020-08-14 15:15] LABS: BAND % (MANUAL) 2 % (0.0-5.0); BASOPHILS % (MANUAL) 1 % (0.0-2.0); EOSINOPHILS % (MANUAL) 2 % (0-4); LYMPHOCYTES % (MANUAL) 12 % (16-48); MONOCYTES % (MANUAL) 4 % (0-11.0); NEUTROPHILS % (MANUAL) 79 (42-76)
--- NOTE | 2020-08-14 15:36 | NUR ---
NURSING SUP GAVE TELE OVERFLOW BED 257.
--- NOTE | 2020-08-14 15:55 | NUR ---
REPORT GIVEN TO LIBAN GANDARA FOR GUILLERMO.
--- NOTE | 2020-08-14 16:40 | NUR ---
RN OPENING NOTES RECEIVED PATIENT FROM ER, A/O X0, ON MECHANICAL VENT WITH SETTINGS ORDERED, TOLERATING WELL, NO SIGNS OF RESPIRATORY DISTRESS NOTED, PLACED ON MONITOR WITH SR, VITAL SIGNS ARE STABLE. IV ON R. WRIST #22 AND R. UA INTACT, PATENT, AND FLUSHED WELL. NO SIGNS OF INFILTRATION NOTED. PENDING ADMISSION ORDERS, SAFETY MAINTAINED, CALL LIGHT WITHIN REACH, WILL CONTINUE TO MONITOR CLOSELY.
--- NOTE | 2020-08-14 17:30 | NUR ---
RN NOTE PAGED DR. AYALA FOR ADMITTING ORDERS, MD SAID "OK." WAITING ON MD FOR ADMITTING ORDERS
--- NOTE | 2020-08-14 18:20 | NUR ---
RN NOTES: CONTACTED DR TWICE FOR ADMITTING ORDERS. WAITING FOR RESPONSE
--- NOTE | 2020-08-14 18:26 | NUR ---
RN NOTES: DR CONTACTED BACK SAYING HES HAVING COMPUTER PROBLEMS AND WILL PUT IN THE ORDERS SHORTLY.
--- NOTE | 2020-08-14 18:36 | NUR ---
RN CLOSING NOTES: PT IN BED BLOOD BEING TRANSFUSED NO ADVERSE REACTION, NO SIGNS OF RESPIRATORY DISTRESS, SOB, DIFFICULTY BREATHING, NO ACUTE CHANGES, ALL SAFETY MEASURES MAINTAINED CALL LIGHT WITHIN REACH WILL ENDORSE TO CASING PULLER NURSE.
[2020-08-14] MEDS ORDERED: ALBUTEROL SULFATE INH 18 GM HFA.AER.AD IH PRN (19:00)
[2020-08-14] MEDS ORDERED: ONDANSETRON HCL/PF 4 MG/2 ML VIAL IVP PRN (19:00)
[2020-08-14] MEDS ORDERED: JEVITY 1.2 CAL 1,000 ML BOTTLE GT PRN (19:00)
[2020-08-14] MEDS ORDERED: BISACODYL SUPP (10 MG) 10 MG/SUPP.RECT SUPP.RECT RC PRN (19:00)
[2020-08-14] MEDS ORDERED: ACETAMINOPHEN 325 MG TABLET PO PRN (19:00)
[2020-08-14] MEDS ORDERED: SCOPOLAMINE HBR 1 EA PATCH.TD72 TD SCH (19:00)
[2020-08-14] MEDS ORDERED: NA PHOS,M-B/NA PHOS,DI-BA 1 EA ENEMA RC PRN (19:00)
[2020-08-14] MEDS ORDERED: MAGNESIUM HYDROXIDE 30 ML UDC GT PRN (19:00)
[2020-08-14] MEDS ORDERED: TRAMADOL HCL 50 MG TABLET GT PRN (19:00)
[2020-08-14] MEDS ORDERED: Z GUARD REMEDY 2 OZ OINT TP PRN (19:00)
--- NOTE | 2020-08-14 19:10 | NUR ---
RN OPENING NOTES RECEIVED PT ON BED AWAKE, OBTUNDED, ON TRACH VENT SETTING ORDERED NO SIGN AND SYMPTOMS OF RESPIRATORY DISTRESS, SPO2 99% TELE MONITOR READS SINUS RHYTHM 88, WITH ON GOING BLOOD TRANSFUSION OF 1 UNIT PRBC TOLERATING WELL, NO SIGN AND SYMPTOMS OF TRANSFUSION REACTION NOTED VIA R AC # 20 IV,ON DROPLET ISOLATION FOR R/O COVID, GTUBE ON PLACE PATENT AND CLAMPED,SAFETY MEASURE MAINTAINED BED ON LOWEST POSITION AND LOCKED CALL LIGHT WITHIN REACH
[2020-08-14] MEDS: LACOSAMIDE ORAL SOLN 50 MG/5 ML UDC GT SCH (20:22)
[2020-08-14] MEDS: PANTOPRAZOLE 40 MG VIAL IV SCH (20:22)
[2020-08-14] MEDS: LEVETIRACETAM SOL (5 ML) 100 MG/ML UDC GT SCH (20:22)
--- NOTE | 2020-08-14 21:00 | NUR ---
RN NOTE 1 UNIT PRBC TRANSFUSION COMPLETED WITH LATEST V/S TEMP 97.8 BP 137/85 HR 65 RR 18 SPO2 100% NO SIGN AND SYMPTOMS OF TRANSFUSION REACTION NOTED, WILL CONT TO MONITOR
[2020-08-14 22:57] LABS: IRON, SERUM 32 ug/dl (50-175); TOTAL IRON BINDING CAPACITY 249 ug/dl (250-450)
[2020-08-14] MEDS: GLYCOPYRROLATE 1 MG TABLET GT SCH (23:44)
[2020-08-15] VITALS (15 sets, daily range): BP systolic 127–141; BP diastolic 77–96
[2020-08-15 04:37] LABS: BASOPHILS % (AUTO) 0.3 % (0.0-2.0); EOSINOPHILS % (AUTO) 3.3 % (0.0-6.0); HEMATOCRIT 27 % (33-45); HEMOGLOBIN 8.3 g/dL (11.5-14.8); LYMPHOCYTES # (AUTO) 0.8 /CMM (0.8-4.8); LYMPHOCYTES % (AUTO) 10.7 % (20.0-44.0); MEAN CORPUSCULAR HGB CONC 31 g/dl (31.0-36.0); MEAN CORPUSCULAR VOLUME 77 fL (82-100); MONOCYTES # (AUTO) 0.4 /CMM (0.1-1.30); MONOCYTES % (AUTO) 5.2 % (2.0-12.0); NEUTROPHILS # (AUTO) 5.9 /CMM (1.8-8.9); NEUTROPHILS % (AUTO) 80.5 % (43.0-81.0); PLATELET COUNT (AUTO) 574 /CMM (150-450); RED BLOOD CELL COUNT(AUTO) 3.43 MIL/uL (4.0-5.2); WHITE BLOOD COUNT (AUTO) 7.4 K/uL (4.3-11.0)
[2020-08-15 04:43] LABS: CALCIUM, SERUM 8.4 mg/dL (8.5-10.1); CREATININE 0.7 mg/dL (0.6-1.3); MAGNESIUM 2.1 mg/dL (1.8-2.4); PHOSPHORUS 4.7 mg/dL (2.5-4.9); POTASSIUM 3.5 mmol/L (3.5-5.1)
[2020-08-15 05:09] LABS: THYROID STIMULATING HORMONE 2.405 uIU/mL (0.358-3.74)
--- NOTE | 2020-08-15 05:30 | NUR ---
RN NOTES RECEIVED LAB RESULT AND NOTED THAT GLUCOSE IS 71 RECHECKED IT BY GLUCOMETER AND IT READS 67, 4PACK OF SUGAR AND JUICE GIVEN PER PROTOCOL WILL RECHECKED SUGAR AFTER 30 MINS
[2020-08-15] MEDS: GLYCOPYRROLATE 1 MG TABLET GT SCH ×3 (06:11→17:16)
--- NOTE | 2020-08-15 06:29 | NUR ---
RN NOTES BLOOD SUGAR RECHECKED 110 WILL CONT TO MONITOR
--- NOTE | 2020-08-15 06:52 | NUR ---
RN CLOSING NOTES PT ON BED ASLEEP NO SIGN AND SYMPTOMS OF RESPIRATORY DISTRESS, SPO2 98% VIA TRACH/VENT SETTING ORDERED NO SIGNIFICANT CHANGES ON CONDITION NOTED TELE MONITOR STILL READS SINUS RHYTHM 80'S-90'S, ALL NEEDS ATTENDED, FOR DIETARY CONSULT FOR FEEDING RATE, SAFETY MEASURE MAINTAINED BED ON LOWEST POSITION AND LOCKED SIDE RAILS UP WILL ENDORSED TO AM SHIFT NURSE
--- NOTE | 2020-08-15 08:40 | NUR ---
FACUNDO RN OPENING NOTES RECEIVED PT IN BED SLEEPING. PT OPEN EYES BUT OBTUNDED.ON TRACH VENT SETTING OF PORTEX #7,AC 12,TV 450, FIO2 40% PEEP 5. NO SIGN AND SYMPTOMS OF RESPIRATORY DISTRESS, SPO2 96% TELE MONITOR READS SINUS RHYTHM 80. R AC # 22,CHANTALE#20 IS INTACT, WELL FLUSHED AND NO SIGN OF INFILTRATION NOTED. PT IS ON DROPLET ISOLATION FOR R/O COVID, GTUBE ON PLACE PATENT AND CLAMPED,SAFETY MEASURE ARE MAINTAINED PER HOSPITAL POLICY. BED IS ON LOWEST POSITION AND LOCKED X2. CALL LIGHT WITHIN REACH. WILL CONTINUE TO MONITOR
[2020-08-15] MEDS: LEVETIRACETAM SOL (5 ML) 100 MG/ML UDC GT SCH ×2 (09:56→21:07)
[2020-08-15] MEDS: METOPROLOL TARTRATE 25 MG TABLET GT SCH ×2 (09:57→17:10)
[2020-08-15] MEDS: DOCUSATE SODIUM LIQ 100 MG/10 ML UDC GT SCH ×2 (09:57→17:09)
[2020-08-15] MEDS: PANTOPRAZOLE 40 MG VIAL IV SCH ×2 (09:57→21:07)
[2020-08-15] MEDS: MAGNESIUM OXIDE 400 MG TABLET GT SCH ×3 (09:58→17:09)
[2020-08-15] MEDS: LACOSAMIDE ORAL SOLN 50 MG/5 ML UDC GT SCH ×2 (10:30→21:07)
[2020-08-15] MEDS: FAMOTIDINE/PF INJ 20 MG/2 ML VIAL IV SCH ×2 (10:33→21:07)
--- NOTE | 2020-08-15 12:00 | NUR ---
FACUNDO RN NOTES WILL START JEVITY @ 20ML/HR GOAL IS
[2020-08-15] MEDS ORDERED: JEVITY 1.2 CAL 1,000 ML BOTTLE GT STA (12:18)
[2020-08-15] MEDS ORDERED: JEVITY 1.2 CAL 1,000 ML BOTTLE GT PRN (12:48)
--- NOTE | 2020-08-15 13:00 | NUR ---
FACUNDO RN NOTES VERIFIED THE JEVITY 1.2 TAURUS RATE. STARTED WITH @20 ML/HR GOAL IS 55 ML/HR
--- NOTE | 2020-08-15 16:00 | NUR ---
FACUNDO RN NOTES PT IS RESTING . NO RESPIRATORY DISTRESS NOTED
--- NOTE | 2020-08-15 16:00 | NUR ---
FACUNDO RN NOTES PT TOLERATED WELL THE TF INCREASING TO 25 ML/HR GOAL IS 55 ML/HR
--- NOTE | 2020-08-15 19:07 | NUR ---
FACUNDO RN CLOSING NOTES PT ON BED ASLEEP NO SIGN AND SYMPTOMS OF RESPIRATORY DISTRESS NOTED. SPO2 98% VIA TRACH/VENT SETTING ORDERED NO SIGNIFICANT CHANGES ON CONDITION NOTED .PT IS SINUS RHYTHM 80'S-90'S, ALL NEEDS ARE MET TUBE FEEDING JEVITY 1.2 @ 25 ML/HR GOAL IS 55 ML/HR FEEDING .SAFETY MEASUREMENTS ARE IMPLEMENTED BY HOSPITAL PROTOCOL. BED IS ON LOWEST POSITION AND LOCKED SIDE RAILS UP. CALL LIGHT WITHIN THE REACH. WILL ENDORSED TO AM SHIFT NURSE
--- NOTE | 2020-08-15 19:15 | NUR ---
RN NOTE RECEIVED PATIENT IN BED RESTING WITH HOB ELEVATED. AWAKE, OBTUNDED. FULL CODE. ON ISOLATION FOR R/O COVID. VENT DEPENDANT. BREATHING IS EVEN AND NON-LABORED, NO SOB NOTED AT THIS TIME. SKIN IS DRY AND WARM TO TOUCH. IV SITE ON CHANTALE GAUGE 20 AND RIGHT HAND GAUGE 22 ARE CLEAN DRY, AND PATENT. ON GT JEVITY FEEDING RUNNING AT 25 ML/HR, GOAL IS 55 ML/HR PER AM SHIFT RN REPORT. NO RESIDUALS NOTED. BOWEL SOUNDS ARE PRESENT ON ALL FOUR QUADRANTS. INCONTINENT OF BOWEL AND BLADDER. PATIENT IS NON-AMBULATORY. IN NO APPARENT DISTRESS NOTED AT THIS TIME. BED IS LOWERED AND LOCKED FOR SAFETY. WILL CONTINUE TO MONITOR.
--- NOTE | 2020-08-15 20:41 | NUR ---
RT NOTE Pt rec'd trached on [facility] vent on AC mode. Pt shows no signs of resp distress or sob. Trach is patent and secured. Sx'd for thick large amt of pale yellow secretions. Alarms are set and audible. Ambu bag and emergency spare trach is bedside. Vent plugged into red outlet. Will continue to monitor closely Addendum: 08/15/20 at 2041 by WALTER MEDINA RT Amended: Links added.
[2020-08-16] VITALS: BP 132/74
[2020-08-16] MEDS: GLYCOPYRROLATE 1 MG TABLET GT SCH ×4 (00:11→17:30)
--- NOTE | 2020-08-16 01:30 | NUR ---
RN NOTE PATIENT TOLERATED BED BATH WELL AT THIS TIME. NOTED VOID X1. JULITA CARE AND WOUND CARE RENDERED. PATIENT KEPT CLEAN AND DRY.
[2020-08-16 04:00] VITALS: BP 126/75
[2020-08-16 05:03] LABS: BASOPHILS % (AUTO) 0.4 % (0.0-2.0); EOSINOPHILS % (AUTO) 2.6 % (0.0-6.0); HEMATOCRIT 28 % (33-45); HEMOGLOBIN 8.4 g/dL (11.5-14.8); LYMPHOCYTES # (AUTO) 0.8 /CMM (0.8-4.8); LYMPHOCYTES % (AUTO) 8.8 % (20.0-44.0); MEAN CORPUSCULAR HGB CONC 31 g/dl (31.0-36.0); MEAN CORPUSCULAR VOLUME 78 fL (82-100); MONOCYTES # (AUTO) 0.4 /CMM (0.1-1.30); MONOCYTES % (AUTO) 3.9 % (2.0-12.0); NEUTROPHILS # (AUTO) 8.1 /CMM (1.8-8.9); NEUTROPHILS % (AUTO) 84.3 % (43.0-81.0); PLATELET COUNT (AUTO) 590 /CMM (150-450); RED BLOOD CELL COUNT(AUTO) 3.52 MIL/uL (4.0-5.2); WHITE BLOOD COUNT (AUTO) 9.6 K/uL (4.3-11.0)
[2020-08-16 05:05] LABS: CALCIUM, SERUM 8.2 mg/dL (8.5-10.1); CREATININE 0.8 mg/dL (0.6-1.3); PHOSPHORUS 4.1 mg/dL (2.5-4.9); POTASSIUM 3.8 mmol/L (3.5-5.1)
--- NOTE | 2020-08-16 07:07 | NUR ---
RN NOTE PATIENT REMAINED STABLE THROUGHOUT THE NIGHT. NO SIGNIFICANT CHANGES NOTED. DUE MEDS GIVEN AND TOLERATED WELL. GT FEEDING INCREASED TO 45 ML/HR AND TOLERATED WELL, 5 ML RESIDUAL NOTED. REPOSITIONED Q2H. IN NO APPARENT DISTRESS NOTED AT THIS TIME. WILL CONTINUE TO MONITOR.
--- NOTE | 2020-08-16 07:50 | NUR ---
ICU/RN PT IS CHRONIC TRACH ON THE VENT AC MODE FIO2-40%.V/S STABLE ,AFEBRILE.NO PAIN REPORTED AT THIS TIME.G-TUBE INFUSING WITH JEVITY.NO RESIDUAL.INCONTINENT .NOT FOLLOWS COMMAND .CONTRACTED.ANOXIC ENCEPHALOPATHY.OPEN EYES .IV-HL.WOUND ON THE LOWER BACK COVERED WITH MEPILEX.COVID 19 TEST NEGATIVE.
--- NOTE | 2020-08-16 07:50 | NUR ---
WOUND CARE CONSULT: PT PRESENTS WITH INCONTINENCE ASSOCIATED SKIN DAMAGE OVER PREVIOUS SACRAL SCARRING WELL SCAR TO LEFT DORSAL FOOT, PRESENT ON ADMISSION. RECOMMENDATIONS MADE FOR SKIN PROTECTION. DISCUSSED WITH NURSING STAFF. PT IS INCONTINENT. PT IS ON CHRISTINA ISOFLEX LOW AIRLOSS BED. IN AGREEMENT WITH PLAN OF CARE. WILL SEE PRN. Addendum: 08/16/20 at 0752 by SANTOS HUANG WNDNU Amended: Links added.
[2020-08-16 08:00] VITALS: BP 130/82
[2020-08-16] MEDS ORDERED: FAMOTIDINE (20 MG) 20 MG TABLET NG SCH (09:00)
[2020-08-16] MEDS ORDERED: PANTOPRAZOLE 40 MG/PACK PACK NG SCH (09:00)
--- NOTE | 2020-08-16 09:00 | NUR ---
ICU/RN DUE MEDS ARE GIVEN ORDERED.WOUND CARE DONE ORDERED.REPOSITION FOR COMFORT.SUCTION PROVIDED.
[2020-08-16] MEDS: DOCUSATE SODIUM LIQ 100 MG/10 ML UDC GT SCH ×2 (09:39→17:29)
[2020-08-16] MEDS: LEVETIRACETAM SOL (5 ML) 100 MG/ML UDC GT SCH (09:39)
[2020-08-16] MEDS: METOPROLOL TARTRATE 25 MG TABLET GT SCH ×2 (09:40→17:30)
[2020-08-16] MEDS: MAGNESIUM OXIDE 400 MG TABLET GT SCH ×3 (09:40→17:30)
[2020-08-16] MEDS: LACOSAMIDE ORAL SOLN 50 MG/5 ML UDC GT SCH (11:20)
--- NOTE | 2020-08-16 11:45 | NUR ---
ICU/RN PT TRANSFERRED TO TELE UNIT 328-1. IN STABLE CONDITION V/S STABLE AFEBRILE.NO PAIN REPORTED AT THIS TIME.REPORT GIVEN TO URSULA /LIBAN.
[2020-08-16] MEDS ORDERED: FUROSEMIDE 20 MG/2 ML VIAL IV ONE (12:30)
--- NOTE | 2020-08-16 12:30 | NUR ---
TELE TRANSFER FROM ICU NOTES RECEIVED PT TRANSFER FROM ICU VIA [facility] VENT WITH VENT SETTINGS ORDERED.SUCTIONED SECRETIONS NEEDED.PT IS OBTUNDED.OPENS EYES OCCASIONALLY. ON TELE MONITOR WITH ST HR 115.WITH GT FEEDING OF JEVITY 1.2 RUNNING AT 55 ML/HR.HOB ELEVATED. WITH CHANTALE HEPLOCK AND RT HAND INTACT. TURNED EVERY TWO HRS. AFLOAT TOM HEELS WITH PILLOWS.[facility] FOR [facility]. NEEDS ANTICIPATED AND ATTENDED. WILL MONITOR.
[2020-08-16] MEDS ORDERED: PIPERACILLIN /TAZOBACTAM 3.375 G in IV D5W 50 ML IV ONE (13:00)
--- NOTE | 2020-08-16 14:30 | NUR ---
REPORT CALLED IN TO LIBAN [facility] OF [facility].DISCHARGED INSTRUCTIONS GIVEN WELL.AWAITING FOR AMBULANCE AQUACULTURE AND FISHERIES PROFESSOR AT 1500.
[2020-08-16 17:30] VITALS: BP 107/65
--- NOTE | 2020-08-16 19:45 | NUR ---
NOTCHERMATERIAL LOADER NOTES PATIENT PICKED UP BY AMBULANCE FOR DISCHARGE TO [facility]. REPORT GIVEN TO FACILITY BY AM NURSE. IV ON LEFT UPPER ARM SIZE 20 AND RIGHT HAND SIZE 22 REMOVED. ID BAND REMOVED. BELONGINGS LIST REVIEWED; NO BELONGINGS PRESENT PER DAY SHIFT RN. DISCHARGE EXIT CARE COMPLETED BY AM NURSE; COPY GIVEN TO EMT.
[2020-08-16] MEDS ORDERED: PIPERACILLIN /TAZOBACTAM 3.375 G in IV D5W 100 ML IV SCH (20:00)
== END 2020-08-16 21:04 | DRG 663 ==
LOC: ER 12:53 → ICU 16:09 → TELE 08-16 12:03
PROC: 5A1945Z Respiratory Ventilation, 24-96 Consecutive Hours (ICD-10-PCS; principal; 2020-08-14)
PROC: 30233P1 Transfusion of Nonautologous Frozen Red Cells into Peripheral Vein, Percutaneous Approach (ICD-10-PCS; principal; 2020-08-14)
DX: D50.9 Iron deficiency anemia, unspecified (principal); E43 Unspecified severe protein-calorie malnutrition; J95.851 Ventilator associated pneumonia; Z99.11 Dependence on respirator [ventilator] status; J96.10 Chronic respiratory failure, unspecified whether with hypoxia or hypercapnia; Z93.1 Gastrostomy status; Z93.0 Tracheostomy status; R13.10 Dysphagia, unspecified; Z87.820 Personal history of traumatic brain injury; Z86.711 Personal history of pulmonary embolism; G93.40 Encephalopathy, unspecified; Z79.51 Long term (current) use of inhaled steroids; Z79.899 Other long term (current) drug therapy; Z79.01 Long term (current) use of anticoagulants; R40.3 Persistent vegetative state; E87.70 Fluid overload, unspecified
CPT/HCPCS: 31720; 36415; 71045-TC; 80048-TC; 80061-TC; 80076-TC; 82962-TC; 83540-TC; 83735-TC; 83880; 84100-TC; 84443-TC; 84703-TC; 85025-TC; 85730-TC; 86850-TC; 87081-TC; 93307-TC; 94002-TC; 94003-TC; 94762-TC; 94799-TC; A4623; C9113; G0378; J1940; J1953; J2543; J3490; J7050; J7060; P9016-BL; U0003-CS

== ENCOUNTER 2020-10-21 14:20 | Emergency (ER) | payer OTHER ==
[~2020-10-21] VITALS: Ht 157.5 cm; Wt 65.8 kg
[~2020-10-21 14:20] MED LIST changes: +ACET-2605 GT; +ACET-868 GT; -ACET650S26 GT; -ALBU2.5V38 IH; +ALBU6.7H9 IH; -ASCO-352 GT; +BISA10SU11 RC; +DOCU50LI GT; +ENOX40DI SQ; -ENOX60DI SQ; +GUAI400T93 GT; -LACT-209 GT; -LEVO750T21 GT; +MAGN400O6 GT; -MERO1VIA IV; +METO25TA20 GT; +NA P133E RC; +NUTR150016 GT; -SACC250C GT; +SCOP1PAT11 TD; +SODI1TAB66 GT
[2020-10-21] MEDS ORDERED: EPOE40007 SQ (15:19)
[2020-10-21] MEDS ORDERED: PROP10DR10 EACHEYE (15:19)
[2020-10-21] MEDS ORDERED: CHLO473M5 MM (15:19)
[2020-10-21] MEDS ORDERED: MULT9LIQ6 GT (15:19)
[2020-10-21] MEDS ORDERED: AMIN30LI2 GT (15:19)
[2020-10-21] MEDS ORDERED: ASCO-352 GT (15:19)
[2020-10-21 16:04] LABS: BASOPHILS % (AUTO) 0.4 % (0.0-2.0); EOSINOPHILS % (AUTO) 5.4 % (0.0-6.0); HEMATOCRIT 27 % (33-45); LYMPHOCYTES # (AUTO) 0.9 /CMM (0.8-4.8); LYMPHOCYTES % (AUTO) 14.3 % (20.0-44.0); MEAN CORPUSCULAR HGB CONC 30 g/dl (31.0-36.0); MEAN CORPUSCULAR VOLUME 72 fL (82-100); MONOCYTES # (AUTO) 0.3 /CMM (0.1-1.30); MONOCYTES % (AUTO) 4.7 % (2.0-12.0); NEUTROPHILS # (AUTO) 4.8 /CMM (1.8-8.9); NEUTROPHILS % (AUTO) 75.2 % (43.0-81.0); PLATELET COUNT (AUTO) 476 /CMM (150-450); WHITE BLOOD COUNT (AUTO) 6.4 K/uL (4.3-11.0)
[2020-10-21 16:10] LABS: CALCIUM, SERUM 8.3 mg/dL (8.5-10.1); CREATININE 0.6 mg/dL (0.6-1.3); POTASSIUM 4.9 mmol/L (3.5-5.1)
[2020-10-21 19:41] VITALS: BP 106/72
== END 2020-10-21 19:41 | disposition home or self-care (01) ==
LOC: ER 14:25
DX: T83.022A Displacement of nephrostomy catheter, initial encounter (principal); R40.3 Persistent vegetative state; Z93.1 Gastrostomy status; Z79.899 Other long term (current) drug therapy
CPT/HCPCS: 36415; 76770-TC; 80048-TC; 85025-TC; 87081-TC

== ENCOUNTER 2020-10-31 18:34 | Inpatient (IN) | payer OTHER ==
[~2020-10-31] VITALS: Ht 157.5 cm; Wt 80.3 kg
[~2020-10-31 18:34] MED LIST changes: +AMIN30LI2 GT; +ASCO-352 GT; +CHLO473M5 MM; +EPOE40007 SQ; -GUAI400T93 GT; +MULT9LIQ6 GT; +PROP10DR10 EACHEYE; +ZOSYN IVPB 3.375 G in IV D5W 50ml IV SCH
--- NOTE | 2020-10-31 19:45 | NUR ---
RT NOTE Late Entry: Pt rec'd trached on mech vent on AC mode. Pt shows no signs of resp distress or sob. Trach is patent and secured. pt sx'd for thck mod amt of pale yellow secretions Alarms are set and audible. ambu bag and emergency spare trach bedside. Vent plugged into red outlet. Will continue to monitor closely. Addendum: 10/31/20 at 2042 by WALTER MEDINA RT Amended: Links added.
[2020-10-31 19:58] LABS: BASOPHILS % (AUTO) 0.5 % (0.0-2.0); EOSINOPHILS % (AUTO) 2.7 % (0.0-6.0); HEMATOCRIT 25 % (33-45); HEMOGLOBIN 7.3 g/dL (11.5-14.8); LYMPHOCYTES # (AUTO) 1.2 /CMM (0.8-4.8); LYMPHOCYTES % (AUTO) 19.5 % (20.0-44.0); MEAN CORPUSCULAR HGB CONC 30 g/dl (31.0-36.0); MEAN CORPUSCULAR VOLUME 73 fL (82-100); MONOCYTES # (AUTO) 0.3 /CMM (0.1-1.30); MONOCYTES % (AUTO) 4.9 % (2.0-12.0); NEUTROPHILS # (AUTO) 4.6 /CMM (1.8-8.9); NEUTROPHILS % (AUTO) 72.4 % (43.0-81.0); PLATELET COUNT (AUTO) 394 /CMM (150-450); RED BLOOD CELL COUNT(AUTO) 3.39 MIL/uL (4.0-5.2); WHITE BLOOD COUNT (AUTO) 6.3 K/uL (4.3-11.0)
[2020-10-31 20:10] LABS: CALCIUM, SERUM 8.9 mg/dL (8.5-10.1); CARBON DIOXIDE 26 mmol/L (21-32); CHLORIDE 108 mmol/L (98-107); CREATININE 0.7 mg/dL (0.6-1.3); GLUCOSE 89 mg/dL (74-106); POTASSIUM 4.3 mmol/L (3.5-5.1); SODIUM SERUM 142 mmol/L (136-145); UREA NITROGEN, BLOOD 20 mg/dL (7-18)
[2020-10-31 20:16] LABS: ALANINE AMINOTRANSFERASE 88 U/L (12-78); ALBUMIN 1.7 g/dL (3.4-5.0); ALKALINE PHOSPHATASE 342 U/L (46-116); ASPARTATE AMINOTRANSFERASE 49 U/L (15-37); BILIRUBIN,DIRECT 0.1 mg/dL (0.0-0.2); BILIRUBIN,TOTAL 0.1 mg/dL (0.2-1.0); LIPASE 184 U/L (73-393); TOTAL PROTEIN, SERUM 8.9 g/dL (6.4-8.2)
[2020-10-31] MEDS ORDERED: VANCOMYCIN 1 GM in IV D5W 250 ML IV ONE (20:30)
[2020-10-31] MEDS ORDERED: PIPERACILLIN /TAZOBACTAM 3.375 G in IV D5W 50 ML IV ONE (20:30)
[2020-10-31] MEDS ORDERED: VANCOMYCIN 1 GM VIAL ONE ×2 (20:59→21:26)
[2020-10-31] MEDS ORDERED: MAGNESIUM HYDROXIDE 30 ML UDC GT PRN (21:00)
[2020-10-31] MEDS ORDERED: PIPERACILLIN /TAZOBACTAM 3.375 G VIAL IV ONE (21:00)
[2020-10-31] MEDS ORDERED: BISACODYL SUPP (10 MG) 10 MG/SUPP.RECT SUPP.RECT RC PRN (21:00)
[2020-10-31] MEDS ORDERED: TRAMADOL HCL 50 MG TABLET GT PRN (21:00)
[2020-10-31] MEDS ORDERED: NA PHOS,M-B/NA PHOS,DI-BA 1 EA ENEMA RC PRN (21:00)
--- NOTE | 2020-10-31 21:00 | NUR ---
KRISTI FROM [facility] TO ER BED 5. NON VERBAL ON TRACH AND VENT. BED BOUND. BROUGHT IN FOR ABNORMAL LABS. PER REPORT, PT HAD A HEMOGLOBING RESULT OF 6.2 AT THE SN[facility]. PT WAS NOTED WITH GT. LIZBET MIDLINE PRESENT UPON PRESENTATION. WAS AT THE BEDSIDE FOR EVAL. ORDERS RECEIVED NOTED AND CARRIED OUT.
[2020-10-31 21:15] LABS: BILIRUBIN,URINE Negative (NEGATIVE); BLOOD, URINE Moderate Ery/uL (NEGATIVE); COLOR,URINE YELLOW (YELLOW); LEUKOCYTE ESTERASE ,URINE Small (NEGATIVE); NITRITE, URINE Positive (NEGATIVE); PH,URINE 8.5 (5.0-8.0); PROTEIN,URINE 100 mg/dl (NEGATIVE); UGLUCOSE Negative (NEGATIVE); UROBILINOGEN,URINE 0.2 EU/dL (0.2)
[2020-10-31 21:49] LABS: BACTERIA,URINE 3+ /HPF (None Seen); SQUAMOUS EPITHELIAL CELL,UR Few /HPF (None Seen)
--- NOTE | 2020-10-31 22:02 | NUR ---
BETHANY NEG, [place] SUPPERVISOR PROVIDED BED 115-1
--- NOTE | 2020-10-31 22:35 | NUR ---
REPORT GIVEN TO LIBAN BASSETT FOR GUILLERMO
--- NOTE | 2020-10-31 22:52 | NUR ---
PT TRANSPORTED TO UNIT ON GURNEY WITH EMT, RT AND RN AT BEDSIDE W/ ACLS PROTOCOL. NAD NOTED DURING TRANSPORT
--- NOTE | 2020-10-31 22:52 | NUR ---
RN NOTE RECEIVED PT FROM ER ACCOMPANIED BY RN, EMT, AND RT. PT ON MECHANICAL VENT. RESPIRATIONS EVEN AND UNLABORED. TRACH MID LINE AND IN PLACE, OBTUNDED BUT PHYSICALLY RESPONSIVE TO VERBAL AND TACTILE STIMULI. NO SIGNS OF PAIN OR DISCOMFORT. DX: PNUEMONIA. HX OF RIGHT CRANIOTOMY. UNDER THE CARE OF DR. ANTHONY. GT FLUSHED AND PATENT. PLACEMENT VERIFIED BY AUSCULTATION. WITH RIGHT UPPER ARM MID LINE AND LEFT FOREARM 20G IV FLUSHED AND PATENT. ARRIVED WITH MONTERO CATHETER PATENT AND IN PLACE WITH CLEAR YELLOW URINE DRAINING VIA GRAVITY. COMPLETE BED BATH COMPLETED. SKIN CHECK DONE. NSR VIA TELE MONITOR. NO BELONGINGS NOTED, SAFETY MEASURES IMPLEMENTED PER PROTOCOL, BED LOCKED AND IN LOW POSITION, SIDE RIALS UP X 2, AMBU BAG AT BEDSIDE, WILL MONITOR PATIENT.
[2020-10-31 23:10] VITALS: BP 109/73
[2020-10-31] MEDS ORDERED: ALBUTEROL FS 2.5 MG/3 ML VIAL.NEB NEB PRN (23:45)
[2020-11-01] VITALS: BP 123/79
[2020-11-01] MEDS ORDERED: ONDANSETRON HCL/PF 4 MG/2 ML VIAL IVP PRN
[2020-11-01] MEDS ORDERED: *INSULIN REGULAR(HUMULIN R)HUM 100 UNIT/ML VIAL SQ PRN
[2020-11-01] MEDS ORDERED: Z GUARD REMEDY 2 OZ OINT TP PRN
[2020-11-01] MEDS ORDERED: MAG HYDROX/AL HYDROX/SIMETH 30 ML UDC PO PRN
[2020-11-01] MEDS ORDERED: DEXTROSE 50%-WATER 50 ML DISP.SYRIN IV PRN
[2020-11-01] MEDS ORDERED: MAGNESIUM HYDROXIDE 30 ML UDC PO PRN
[2020-11-01] MEDS ORDERED: HYDROCODONE/APAP 5/325MG TABLET PO PRN
[2020-11-01 00:01] LABS: EOSINOPHILS % (MANUAL) 1 % (0-4); LYMPHOCYTES % (MANUAL) 25 % (16-48); MONOCYTES % (MANUAL) 4 % (0-11.0); NEUTROPHILS % (MANUAL) 70 (42-76)
[2020-11-01] MEDS ORDERED: SCOPOLAMINE PATCH 1 MG/72HR TD ONE (00:20)
--- NOTE | 2020-11-01 00:24 | NUR ---
RN NOTE GLYCOPYRROLATE NOT AVAILABLE IN OMNICEL. CALLED NURSING OFFICE AND SPOKE TO JONY WHO STATES GLYCOPYROLLATE IS NOT AVAILABLE. NOTIFIED RAJ YIN THAT MEDICATION WILL NOT BE GIVEN FOR 0000 AND 0600 DOSE.
[2020-11-01] MEDS: SCOPOLAMINE PATCH 1 MG/72HR TD SCH (00:25)
[2020-11-01] MEDS ORDERED: PIPERACILLIN /TAZOBACTAM 3.375 G VIAL IV ONE (01:51)
[2020-11-01] MEDS: JEVITY 1.2 CAL 1,000 ML BOTTLE GT PRN ×2 (02:05→18:59)
[2020-11-01] MEDS: ALBUTEROL FS 2.5 MG/3 ML VIAL.NEB NEB SCH ×4 (02:32→19:30)
[2020-11-01] MEDS ORDERED: ZOSYN IVPB 3.375 G in IV D5W 50ml IV SCH (03:00)
[2020-11-01 04:00] VITALS: BP 109/67
[2020-11-01] MEDS: ACETAMINOPHEN 325 MG TABLET PO PRN (04:13)
--- NOTE | 2020-11-01 05:00 | NUR ---
RN NOTE POST ADMINISTRATION OF TYLENOL 650MG VIA GT AND COOLING MEASURES, PT AXILLARY TEMPERATURE 98.9.
[2020-11-01] MEDS: GLYCOPYRROLATE 1 MG TABLET GT SCH ×5 (06:00→23:22)
[2020-11-01 06:31] LABS: IRON, SERUM 12 ug/dl (50-175); TOTAL IRON BINDING CAPACITY 184 ug/dl (250-450)
[2020-11-01 06:35] LABS: BILIRUBIN,DIRECT 0.2 mg/dL (0.0-0.2); BILIRUBIN,TOTAL 0.2 mg/dL (0.2-1.0); CREATININE 0.7 mg/dL (0.6-1.3); MAGNESIUM 1.9 mg/dL (1.8-2.4); PHOSPHORUS 3.7 mg/dL (2.5-4.9); POTASSIUM 3.8 mmol/L (3.5-5.1); TOTAL PROTEIN, SERUM 7.8 g/dL (6.4-8.2)
[2020-11-01 06:39] LABS: BASOPHILS % (AUTO) 0.3 % (0.0-2.0); EOSINOPHILS % (AUTO) 2.2 % (0.0-6.0); HEMATOCRIT 23 % (33-45); LYMPHOCYTES # (AUTO) 0.7 /CMM (0.8-4.8); LYMPHOCYTES % (AUTO) 9.3 % (20.0-44.0); MEAN CORPUSCULAR HGB CONC 31 g/dl (31.0-36.0); MEAN CORPUSCULAR VOLUME 71 fL (82-100); MONOCYTES # (AUTO) 0.3 /CMM (0.1-1.30); MONOCYTES % (AUTO) 4.9 % (2.0-12.0); NEUTROPHILS % (AUTO) 83.3 % (43.0-81.0); PLATELET COUNT (AUTO) 361 /CMM (150-450); WHITE BLOOD COUNT (AUTO) 7.2 K/uL (4.3-11.0)
--- NOTE | 2020-11-01 07:15 | NUR ---
RN NOTE PT ON MECHANICAL VENT AND TOLERATING SETTINGS WELL. RESPIRATIONS EVEN AND UNLABORED. TRACH MID LINE AND IN PLACE, OBTUNDED BUT PHYSICALLY RESPONSIVE TO VERBAL AND TACTILE STIMULI. NO SIGNS OF PAIN OR DISCOMFORT. GT PATENT AND IN PLACE. PLACEMENT VERIFIED BY AUSCULTATION. WITH RIGHT UPPER ARM MID LINE AND LEFT FOREARM 20G IV FLUSHED AND PATENT. MONTERO CATHETER PATENT AND IN PLACE WITH CLEAR YELLOW URINE DRAINING VIA GRAVITY. SINUS TACHYCARDIA VIA TELE MONITOR. SAFETY MEASURES IMPLEMENTED PER PROTOCOL, BED LOCKED AND IN LOW POSITION, SIDE RIALS UP X 2, AMBU BAG AT BEDSIDE, WILL ENDORSE TO MORNING RN FOR GUILLERMO.
--- NOTE | 2020-11-01 07:30 | NUR ---
RN OPENING NOTE PT ON MECHANICAL VENT AND PER ORDERED SETTINGS WITH NO SIGNS OF RESP DISTRESS OR SOB, RESPIRATIONS EVEN AND UNLABORED. TRACH MID LINE AND IN PLACE. PT IS OBTUNDED BUT PHYSICALLY RESPONSIVE TO VERBAL AND TACTILE STIMULATION. NO SIGNS NOTED OF PAIN. GT PATENT AND CHECKED FOR PROPER PLACEMENT VIA AUSCULTATION. PT HAS JEVITY 1.2 RUNNING AT 65ML/HR. PT HAS LIZBET MID-LINE AND LEFT FOREARM 20G IV FLUSHED AND PATENT, NO SIGNS OF INFECTION OR INFILTRATION. MONTERO CATHETER PATENT AND IN PLACE WITH CLEAR YELLOW URINE DRAINING VIA GRAVITY. SAFETY MEASURES IN PLACE, BED LOCKED AND IN LOW POSITION, SIDE RIALS UP X 2, AMBU BAG AT BEDSIDE, CALL LIGHT WITHIN REACH. WILL CONTINUE TO MONITOR
[2020-11-01 07:50] LABS: ALBUMIN 1.4 g/dL (3.4-5.0)
[2020-11-01 08:00] VITALS: BP 111/71
[2020-11-01] MEDS ORDERED: VANCOMYCIN 1 GM in IV D5W 250 ML IV SCH (08:00)
--- NOTE | 2020-11-01 08:00 | NUR ---
RN NOTE NOTIFIED DR. SARAH BARBOZA ABOUT HGB OF 7.0 AND ALBUMIN OF 1.4. HELD LOVENOX
[2020-11-01] MEDS: MAGNESIUM OXIDE 400 MG TABLET GT SCH ×3 (08:51→17:51)
[2020-11-01] MEDS: LACOSAMIDE 50 MG TABLET GT SCH ×2 (08:51→20:39)
[2020-11-01] MEDS: ZOSYN IVPB 3.375 G in IV D5W 50ml IV SCH ×3 (08:51→19:56)
[2020-11-01] MEDS: DOCUSATE SODIUM LIQ 100 MG/10 ML UDC GT SCH ×2 (08:54→17:51)
[2020-11-01] MEDS: LEVETIRACETAM SOL (5 ML) 100 MG/ML UDC GT SCH ×2 (08:54→20:39)
[2020-11-01] MEDS: METOPROLOL TARTRATE 25 MG TABLET GT SCH ×2 (08:54→17:52)
[2020-11-01] MEDS: SODIUM CHLORIDE 1000 MG TABLET GT SCH (08:54)
[2020-11-01] MEDS: BLOOD SUGAR DIAGNOSTIC 1 EACH STRIP VI SCH ×4 (08:55→22:15)
[2020-11-01] MEDS ORDERED: ENOXAPARIN SODIUM 40 MG/0.4 ML DISP.SYRIN SQ SCH (09:00)
[2020-11-01 09:51] LABS: EOSINOPHILS % (MANUAL) 2 % (0-4); LYMPHOCYTES % (MANUAL) 8 % (16-48); MONOCYTES % (MANUAL) 4 % (0-11.0); NEUTROPHILS % (MANUAL) 86 (42-76)
--- NOTE | 2020-11-01 10:18 | NUR ---
WOUND CARE CONSULT: REVIEWED CHART, NURSING DOCUMENTATION AND PHOTOS WHICH INDICATE BREAST REDNESS/LESIONS, SACRAL WOUND AND ABDOMINAL SCAR/LESIONS, PRESENT ON ADMISSION. RECOMMEND SURGICAL CONSULT. DR MCCARTNEY NOTIFIED OF CONSULT REQUEST. SKIN PROTECTION RECOMMENDATIONS DISCUSSED WITH NURSING STAFF. IN AGREEMENT WITH PLAN OF CARE. Addendum: 11/01/20 at 1022 by SANTOS HUANG WNDNU FIRST STEP LOW AIRLOSS MATTRESS IS ON ORDER.
[2020-11-01 12:00] VITALS: BP 108/75
[2020-11-01] MEDS: CLOTRIMAZOLE 1% 15 GM TUBE TP SCH ×2 (13:00→17:51)
--- NOTE | 2020-11-01 13:00 | NUR ---
RN NOTE PT RESTING IN BED COMFORTABLE. DOES NOT APPEAR IN ANY PAIN OR DISCOMFORT. NO SIGNS OF RESP DISTRESS OR SOB. TOLERATING VENT SETTINGS WELL
[2020-11-01] MEDS: VANCOMYCIN 1 GM in IV D5W 250 ML IV SCH ×2 (13:48→20:32)
[2020-11-01 16:00] VITALS: BP 115/76
[2020-11-01] MEDS: ACETAMINOPHEN 650 MG/20.3 ML UDC GT PRN ×2 (16:09→23:22)
--- NOTE | 2020-11-01 16:15 | NUR ---
RN NOTE PT TEMP OF 100.5 F. AMINISTERED TYLENOL [address]
--- NOTE | 2020-11-01 17:15 | NUR ---
RN NOTE PT TEMP DOWN SLIGHTLY TO 100.2, WILL CONTINUE TO MONITOR
[2020-11-01] MEDS: MULTIVIT W/MINERALS 1 TAB TABLET GT SCH (17:51)
[2020-11-01] MEDS: ASCORBIC ACID 500 MG TABLET GT SCH (17:54)
[2020-11-01] MEDS: PROSOURCE / PROSTAT (PYXIS) 30 ML UDC GT SCH (18:01)
--- NOTE | 2020-11-01 18:30 | NUR ---
RN CLOSING NOTE PT IN STABLE CONDITION. NO CHANGES DURING SHIFT. NO SIGNS OF RESP DISTRESS OR SOB, BREATHING UNLABORED AND EVEN. PT SAFETY MEASURES IN PLACE, BED LOCKED AND IN LOWEST POSITION, SR UP x2, CALL NIELSEN WITHIN REACH, BED ALARM ON. WILL ENDORSE GUILLERMO TO ONCOMING NURSE
--- NOTE | 2020-11-01 19:15 | NUR ---
RN NOTE RECEIVED PATIENT IN BED RESTING WITH HOB ELEVATED. OBTUNDED. VENT DEPENDENT. ABLE TO OPEN EYES. PATIENT IS NON VERBAL. FULL CODE. BREATHING IS EVEN AND UNLABORED. NO SOB NOTED AT THIS TIME. PATIENT IS ON GT FEEDING RUNNING AT 65 ML/HR WITH 10 ML RESIDUAL NOTED. O2 SAT IS 100% AT THIS TIME. IV SITE ON RIGHT UPPER ARM MIDLINE AND LEFT UPPER ARM GAUGE 20 ARE CLEAN , DRY, AND PATENT. PATIENT IS ON MONTERO CATH. URINE IS YELLOW IN COLOR WITH SEDIMENTS NOTED. SKIN IS DRY AND WARM TO TOUCH. IN NO APPARENT DISTRESS NOTED AT THIS TIME. BED IS LOWERED TO LOW POSITION FOR SAFETY. CALL LIGHT IS WITHIN EASY REACH. WILL CONTINUE TO MONITOR.
[2020-11-01 20:00] VITALS: BP 106/59
--- NOTE | 2020-11-01 20:04 | NUR ---
Pt rec'd trached on mech vent on AC mode. Pt shows no signs of resp distress or sob. Trach is patent and secured. pt sx'd for thck mod amt of pale yellow secretions Alarms are set and audible. ambu bag and emergency spare trach bedside. Vent plugged into red outlet. Will continue to monitor closely. no tx given d/t pending PCR for covid. Addendum: 11/01/20 at 2004 by DOREEN MCCLURE RT Amended: Links added.
--- NOTE | 2020-11-01 22:45 | NUR ---
RN NOTE RECEIVED CALL FROM LAB THAT PATIENT'S PRELIMINARY BLOOD CULTURE RESULTED IN POSITIVE GRAM COCCI IN CLUSTERS. MERCHANDISING COORDINATOR MD, DR. ANTHONY MADE AWARE. PATIENT IS ALREADY ON ATB VANCO AND ZOSYN. NO NEW ORDERS.
[2020-11-02] VITALS: BP 107/68
--- NOTE | 2020-11-02 00:40 | NUR ---
RN NOTE RECEIVED CALL FROM LAB INFORMING THAT PATIENT'S VANCO TROUGH LEVEL IS 52. WILL HOLD NEXT SCHEDULED VANCO MED.
[2020-11-02] MEDS: ZOSYN IVPB 3.375 G in IV D5W 50ml IV SCH ×4 (01:07→19:59)
[2020-11-02] MEDS: ALBUTEROL FS 2.5 MG/3 ML VIAL.NEB NEB SCH ×4 (01:30→20:01)
[2020-11-02] MEDS: VANCOMYCIN 1 GM in IV D5W 250 ML IV SCH ×2 (03:30→19:21)
--- NOTE | 2020-11-02 03:30 | NUR ---
RN NOTE HELD VANCO IV MED AT THIS TIME PER MD ORDER. VANCO TROUGH IS 52.
[2020-11-02 04:00] VITALS: BP 122/73
[2020-11-02] MEDS: GLYCOPYRROLATE 1 MG TABLET GT SCH ×4 (05:13→23:49)
--- NOTE | 2020-11-02 06:58 | NUR ---
RN NOTE PATENT REMAINED STABLE THROUGHOUT THE NIGHT. NO SIGNIFICANT CHANGES NOTED. PATIENT KEPT CLEAN, DRY, AND COMFORTABLE. DUE MEDS GIVEN ORDERED AND TOLERATED WELL. NO ADVERSE EFFECT NOTED. REPOSITIONED Q2H. WILL ENDORSE TO AM SHIFT RN FOR CONTINUATION OF CARE.
[2020-11-02 07:04] LABS: CALCIUM, SERUM 8.4 mg/dL (8.5-10.1); CREATININE 0.7 mg/dL (0.6-1.3); POTASSIUM 4.2 mmol/L (3.5-5.1)
--- NOTE | 2020-11-02 07:30 | NUR ---
RN OPENING NOTE PT ON MECHANICAL VENT PER ORDERED SETTINGS WITH NO SIGNS OF RESP DISTRESS OR SOB, RESPIRATIONS EVEN AND UNLABORED. TRACH MID LINE AND IN PLACE. PT IS OBTUNDED BUT RESPONSIVE TO VERBAL STIMULATION. NO SIGNS OF PAIN NOTED. GT PATENT AND CHECKED FOR PROPER PLACEMENT VIA AUSCULTATION. PT HAS JEVITY 1.2 RUNNING AT 65ML/HR. PT HAS LIZBET MID-LINE AND LEFT FOREARM 20G IV FLUSHED AND PATENT, NO SIGNS OF INFECTION OR INFILTRATION. OMNTERO CATHETER PATENT AND IN PLACE WITH CLEAR KAN URINE DRAINING VIA GRAVITY. SAFETY MEASURES IN PLACE, BED LOCKED AND IN LOW POSITION, SR UP X 2, AMBU BAG AT BEDSIDE, CALL LIGHT WITHIN REACH. WILL CONTINUE TO MONITOR
[2020-11-02 08:00] VITALS: BP 122/73
[2020-11-02] MEDS: BLOOD SUGAR DIAGNOSTIC 1 EACH STRIP VI SCH ×4 (08:17→21:12)
[2020-11-02] MEDS: LACOSAMIDE 50 MG TABLET GT SCH ×2 (08:57→20:21)
[2020-11-02] MEDS: LEVETIRACETAM SOL (5 ML) 100 MG/ML UDC GT SCH ×2 (08:57→20:21)
[2020-11-02] MEDS: SODIUM CHLORIDE 1000 MG TABLET GT SCH (08:57)
[2020-11-02] MEDS: DOCUSATE SODIUM LIQ 100 MG/10 ML UDC GT SCH ×2 (08:57→17:19)
[2020-11-02] MEDS: MAGNESIUM OXIDE 400 MG TABLET GT SCH ×3 (08:57→17:19)
[2020-11-02] MEDS: METOPROLOL TARTRATE 25 MG TABLET GT SCH ×2 (08:58→17:24)
[2020-11-02] MEDS: CLOTRIMAZOLE 1% 15 GM TUBE TP SCH ×2 (09:00→17:00)
[2020-11-02 12:00] VITALS: BP 97/58
[2020-11-02] MEDS: JEVITY 1.2 CAL 1,000 ML BOTTLE GT PRN (12:57)
[2020-11-02] MEDS: ACETAMINOPHEN 650 MG/20.3 ML UDC GT PRN (12:57)
--- NOTE | 2020-11-02 13:00 | NUR ---
RN NOTE TYLENOL 650MG GIVEN TO PT FOR TEMP OF 101.1. COOLING MEASURES ALSO IN PLACE. WILL REASSESS SHORTLY
--- NOTE | 2020-11-02 14:00 | NUR ---
RN NOTE TEMP AT 99.9. COOLING MEASURES IN PLACE
--- NOTE | 2020-11-02 14:30 | NUR ---
RN NOTE RN NOTE SUCTIONED PT TRACH AND MOUTH. A LOT OF SPUTUM FROM MOUTH NOTED. PT STILL HAS FEVER. RESP SHORT AND SHALLOW, SPO2 AT 100. ORDERED ABGS TO BE DRAWN
[2020-11-02 15:23] LABS: ABG BASE EXCESS -1.7 mmol/L; ABG OXYGEN SATURATION 97.2 % (92.0-98.5); ABG PCO2 35.6 mmHg (35.0-45.0); ABG PO2 89.8 mmHg (75.0-100.0); AaDO2 154.5 mmHg; COHb 0.5 % (0.5-1.5); MetHb 0.2 % (0.0-1.5); O2Hb 96.5 % (94.0-97.0); SITE, ABG Right Radial; VENT MODE, BG ac 12 450 40% +5
--- NOTE | 2020-11-02 15:30 | NUR ---
RN NOTE ABGS ARE WITHIN NORMAL RANGES
[2020-11-02 16:00] VITALS: BP 108/56
--- NOTE | 2020-11-02 17:00 | NUR ---
RN NOTES PT TEMP DOWN TO 98.8 F
[2020-11-02] MEDS: MULTIVIT W/MINERALS 1 TAB TABLET GT SCH (17:19)
[2020-11-02] MEDS: ASCORBIC ACID 500 MG TABLET GT SCH (17:19)
[2020-11-02] MEDS: PROSOURCE / PROSTAT (PYXIS) 30 ML UDC GT SCH (18:00)
--- NOTE | 2020-11-02 19:00 | NUR ---
RN NOTE RECEIVED PATIENT IN BED, OBTUNDED, PATIENT IN NO S/SX OF ACUTE DISTRESS AT THIS TIME. PATIENT'S BREATHING IS EVEN AND UNLABORED. PATIENT ON TRACH CONNECTED TO MECHANICAL VENT WITH SETTINGS PRESCRIBED. PATIENT ON TELE MONITOR READING ST, HR IS 103. NOTED LIZBET MIDLINE AND CHANTALE 20G, BOTH PATENT AND FLUSHING WELL, NO S/S OF INFECTION. MONTERO CATHETER CONNECTED TO URINE BAG IN PLACE, DRAINING TO A CLEAR YELLOW URINE. SAFETY MEASURES IMPLEMENTED PER PROTOCOL. PATIENT BED ALARM IS ON. HEAD OF BED ELEVATED. BED IS LOCKED, IN LOWEST POSITION AND SIDE RAILS UP. CALL LIGHT WITHIN REACH OF THE PATIENT. WILL CONTINUE TO MONITOR AND REASSESS FOR ANY CHANGES. Addendum: 11/03/20 at 0239 by GAVIOTA PORTER RN NOTED GTUBE INTACT, PLACEMENT WAS CHECKED BY ASPIRATION AND AUSCULTATION, MINIMAL RESIDUAL NOTED, WITH TUBE FEEDING OF JEVITY 1.2 TAURUS REGULATED AT 65 ML/HR.
--- NOTE | 2020-11-02 19:00 | NUR ---
RN NOTE PT TEMP UNDER CONTROL AND WNL. NO SIGNS OF RESP DISTRESS OR SOB, BREATHING UNLABORED AND EVEN. PT SAFETY MEASURES IN PLACE, BED LOCKED AND IN LOWEST POSITION, SR UP x2, CALL NIELSEN WITHIN REACH, BED ALARM ON. WILL ENDORSE GUILLERMO TO ONCOMING NURSE
--- NOTE | 2020-11-02 20:10 | NUR ---
RN NOTE NOTED TEMP OF 99.0 DEG F, COOLING MEASURES PROVIDED. TEMP RECHECKED AND RESULTED 98.7 DEG F. WILL CONTINUE TO MONITOR PATIENT
[2020-11-02 21:00] VITALS: BP 104/63
[2020-11-03] VITALS: BP 120/72
--- NOTE | 2020-11-03 00:05 | NUR ---
RN NOTE NOTED TEMP OF 99.1 DEG F, CONTINUOUS COOLING MEASURES PROVIDED. WILL CONTINUE TO MONITOR PATIENT
[2020-11-03] MEDS: ALBUTEROL FS 2.5 MG/3 ML VIAL.NEB NEB SCH ×4 (02:06→19:54)
[2020-11-03] MEDS: ZOSYN IVPB 3.375 G in IV D5W 50ml IV SCH ×4 (02:44→20:14)
[2020-11-03] MEDS: ACETAMINOPHEN 650 MG/20.3 ML UDC GT PRN (03:39)
[2020-11-03 04:00] VITALS: BP 126/74
--- NOTE | 2020-11-03 04:00 | NUR ---
RN NOTE NOTED TEMP OF 99.5 DEG F, PRN TYLENOL 650 MG ADMINISTERED ORDERED. COOLING MEASURES PROVIDED. WILL CONTINUE TO MONITOR PATIENT
[2020-11-03] MEDS: GLYCOPYRROLATE 1 MG TABLET GT SCH ×3 (05:18→17:15)
[2020-11-03] MEDS: BLOOD SUGAR DIAGNOSTIC 1 EACH STRIP VI SCH ×4 (07:23→21:43)
[2020-11-03 07:30] LABS: BASOPHILS % (AUTO) 0.3 % (0.0-2.0); EOSINOPHILS % (AUTO) 3.4 % (0.0-6.0); HEMATOCRIT 22 % (33-45); LYMPHOCYTES # (AUTO) 1.2 /CMM (0.8-4.8); LYMPHOCYTES % (AUTO) 14.5 % (20.0-44.0); MEAN CORPUSCULAR HGB CONC 32 g/dl (31.0-36.0); MEAN CORPUSCULAR VOLUME 71 fL (82-100); MONOCYTES # (AUTO) 0.5 /CMM (0.1-1.30); MONOCYTES % (AUTO) 5.6 % (2.0-12.0); NEUTROPHILS # (AUTO) 6.5 /CMM (1.8-8.9); NEUTROPHILS % (AUTO) 76.2 % (43.0-81.0); PLATELET COUNT (AUTO) 405 /CMM (150-450); RED BLOOD CELL COUNT(AUTO) 3.09 MIL/uL (4.0-5.2); WHITE BLOOD COUNT (AUTO) 8.5 K/uL (4.3-11.0)
--- NOTE | 2020-11-03 07:35 | NUR ---
RN NOTE PATIENT REMAINS IN ROOM. NO SIGNS OF RESPIRATORY DISTRESS. SAFETY MEASURES IMPLEMENTED, BED IN LOWEST POSITION, LOCKED, SIDE RAILS UP, CALL LIGHT WITHIN REACH. ALL NEEDS AND ORDERS ADDRESSED DURING THE SHIFT. ALL DUE MEDS GIVEN ORDERED & SCHEDULED ; PATIENT TOLERATED WELL.PATIENT KEPT CLEAN AND COMFORTABLE WITHIN THE SHIFT. LATEST TEMP 98.7 DEG F. ENDORSED TO MANOLO LOUIE FOR CONTINUATION OF CARE. Addendum: 11/03/20 at 0736 by GAVIOTA PORTER RN FSBS TAKEN AND RESULTED 78 MG/DL. NO INSULIN COVERAGE ADMINISTERED. ENDORSED TO MANOLO LOUIE.
[2020-11-03 07:56] LABS: CALCIUM, SERUM 8.2 mg/dL (8.5-10.1); CREATININE 0.8 mg/dL (0.6-1.3); MAGNESIUM 2.1 mg/dL (1.8-2.4); PHOSPHORUS 4.5 mg/dL (2.5-4.9); POTASSIUM 4.5 mmol/L (3.5-5.1)
[2020-11-03 08:00] VITALS: BP 89/56
--- NOTE | 2020-11-03 08:00 | NUR ---
BENEFITS SALES CONSULTANT NOTE PATIENT IN BED WITH TRACH TO VENT SETTING ORDERED WITH G TUBE FEEDING, NOTED RESIDUAL 120 ML ,HOLD G TUBE FEEDING FOR NOW, ON TEL MONITOR SR RT UPPER ARM MID LINE IN PLACE AND ALARCON HL IN PLACED AND FLUSHED WELL ,BED IN LOWEST AND LOCKED POSITION ORAL CARE DONE ,WILL CONT O MONITOR
[2020-11-03] MEDS: METOPROLOL TARTRATE 25 MG TABLET GT SCH ×2 (09:00→17:23)
[2020-11-03] MEDS: LEVETIRACETAM SOL (5 ML) 100 MG/ML UDC GT SCH ×2 (09:40→21:42)
[2020-11-03] MEDS: LACOSAMIDE 50 MG TABLET GT SCH ×2 (09:40→21:43)
[2020-11-03] MEDS: DOCUSATE SODIUM LIQ 100 MG/10 ML UDC GT SCH ×2 (09:40→17:15)
[2020-11-03] MEDS: MAGNESIUM OXIDE 400 MG TABLET GT SCH ×3 (09:41→17:15)
[2020-11-03] MEDS: JEVITY 1.2 CAL 1,000 ML BOTTLE GT PRN (09:43)
[2020-11-03] MEDS: CLOTRIMAZOLE 1% 15 GM TUBE TP SCH ×2 (09:44→17:26)
[2020-11-03] MEDS: SODIUM CHLORIDE 1000 MG TABLET GT SCH (09:44)
[2020-11-03 12:00] VITALS: BP 108/73
--- NOTE | 2020-11-03 12:00 | NUR ---
SOCIAL WORK THERAPIST NOTE SARAH GUO DNP NOTIFIED THAT EARLIER BP 88/56 AND NOW 108/73 AND BLOOD SUGAR 82 ALSO AWARE THAT RESIDUAL EARLIER WAS 120 AND NOW 2 50 ML ,NO NEW ORDER AT THIS TIME Addendum: 11/03/20 at 1554 by MANOLO KUHN RN now residual is 50 ml
--- NOTE | 2020-11-03 13:00 | NUR ---
emergency telecommunications dispatcher note spoke with rosaura Manzano notified that hg 7.0 no new order given at this time
--- NOTE | 2020-11-03 13:32 | NUR ---
ROUTE SALES SPECIALIST NOTE BLOOD CX DONE BY FINANCIAL SERVICES ASSOCIATE
--- NOTE | 2020-11-03 15:10 | NUR ---
DRYWALL APPLICATOR NOTE DOPPLEX STUDY DONE BOTH LEGS, PER TECH NO DVT
[2020-11-03 16:00] VITALS: BP 117/65
--- NOTE | 2020-11-03 16:01 | NUR ---
maxine gray note called abeba gray report given
--- NOTE | 2020-11-03 16:53 | NUR ---
telegraph and teletype operator note transferred to [facility] as ordered with stable condition
--- NOTE | 2020-11-03 17:00 | NUR ---
PALLET STONE INSERTER NOTES RECEIVED BEDSIDE REPORT FROM LIBAN FRENCH FACUNDO. ORIENTED PATIENT TO ROOM, UNIT AND CALL LIGHT. RESTING COMFORTABLY IN BED.
[2020-11-03] MEDS: ASCORBIC ACID 500 MG TABLET GT SCH (17:15)
[2020-11-03] MEDS: PROSOURCE / PROSTAT (PYXIS) 30 ML UDC GT SCH (17:16)
[2020-11-03] MEDS: MULTIVIT W/MINERALS 1 TAB TABLET GT SCH (17:23)
[2020-11-03] MEDS: VANCOMYCIN 1 GM in IV D5W 250 ML IV SCH (17:23)
[2020-11-03] MEDS: ACETAMINOPHEN 325 MG TABLET PO PRN (17:28)
[2020-11-03] MEDS: INSULIN REGULAR, HUMAN 100 UNIT/ML 3 ML VIAL SQ PRN (17:29)
--- NOTE | 2020-11-03 19:21 | NUR ---
HAND CANDY DIPPER NOTES PATIENT RESTING COMFORTABLY IN BED. ALERT AND ORIENTED X1. WHEN CALLED BY NAME, PATIENT RESPONDED WITH SOUND AND OPENED EYES. PATIENT RESPONSIVE TO VERBAL AND TACTILE STIMULI. HOB ELEVATED. ON MECHANICAL VENTILATION ORDERED, AC 12; TV 450 FIO2 40% PEEP +5. SUCTIONED PATIENT AND OBTAINED PALE YELLOW SECRETIONS. GT INTACT AND PATENT CEDRICK FEEDING WELL OF JEVITY 1.2 AT 65ML/HR. BED IN LOWEST POSITION, LOCKED. BED ALARM ON. FREQUENT VISUAL CHECK DONE. IN NO APPARENT DISTRESS.
[2020-11-03 20:00] VITALS: BP 119/96
--- NOTE | 2020-11-03 20:42 | NUR ---
SLUBBER RUNNER OPENING NOTE Patient awake in bed, A/O x1, non-verbal, responds to tactile stimuli. Bed bound. Vent dependent: TV450 AC12 PEEP5 PORTEX7 [id number]%. Tele monitor reading sinus rhythm. No acute distress or SOB. HOB elevated. Skin warm, pink, dry. IV site LIZBET midline, patent and intact. No redness or infiltration. G-tube patent and intact. No residual, running jevity 1.2 @ 65ml/hr. Bed in low position, wheels locked, side rails up x2, call light within reach.
[2020-11-03] MEDS: SCOPOLAMINE PATCH 1 MG/72HR TD SCH (21:43)
[2020-11-04] VITALS: BP 133/84
[2020-11-04] MEDS: GLYCOPYRROLATE 1 MG TABLET GT SCH ×4 (01:12→17:23)
[2020-11-04] MEDS: ZOSYN IVPB 3.375 G in IV D5W 50ml IV SCH ×3 (01:33→14:00)
[2020-11-04] MEDS: ALBUTEROL FS 2.5 MG/3 ML VIAL.NEB NEB SCH ×4 (01:58→19:27)
[2020-11-04 04:00] VITALS: BP 122/81
--- NOTE | 2020-11-04 04:38 | NUR ---
MIXING PAN TENDER NOTE Wound photos taken and documented.
[2020-11-04] MEDS: BLOOD SUGAR DIAGNOSTIC 1 EACH STRIP VI SCH ×3 (06:37→17:40)
--- NOTE | 2020-11-04 07:37 | NUR ---
OPERATIONS SUPPORT PROFESSIONALS CLOSING NOTE Patient awake in bed, A/O x1, non-verbal, responds to tactile stimuli. Bed bound. Vent dependent: TV450 AC12 PEEP5 PORTEX7 CxF901%. Tele monitor reading sinus rhythm. HOB elevated. Skin warm, pink, dry. IV site LIZBET midline, patent and intact. No redness or infiltration. G-tube patent and intact. No residual, running jevity 1.2 @ 65ml/hr. Urine output 1650 ml, clear yellow, some pink. Wound dressings changed. Bed in low position, wheels locked, side rails up x2, call light within reach.
[2020-11-04 07:44] LABS: BASOPHILS % (AUTO) 0.4 % (0.0-2.0); HEMATOCRIT 23 % (33-45); MEAN CORPUSCULAR HGB CONC 30 g/dl (31.0-36.0); MEAN CORPUSCULAR VOLUME 71 fL (82-100); MONOCYTES # (AUTO) 0.6 /CMM (0.1-1.30); MONOCYTES % (AUTO) 7.4 % (2.0-12.0); NEUTROPHILS # (AUTO) 5.9 /CMM (1.8-8.9); NEUTROPHILS % (AUTO) 74.2 % (43.0-81.0); PLATELET COUNT (AUTO) 471 /CMM (150-450); RED BLOOD CELL COUNT(AUTO) 3.24 MIL/uL (4.0-5.2); WHITE BLOOD COUNT (AUTO) 7.9 K/uL (4.3-11.0)
[2020-11-04 07:48] LABS: CALCIUM, SERUM 8.4 mg/dL (8.5-10.1); CREATININE 0.8 mg/dL (0.6-1.3); MAGNESIUM 2.1 mg/dL (1.8-2.4); PHOSPHORUS 4.2 mg/dL (2.5-4.9); POTASSIUM 4.4 mmol/L (3.5-5.1)
[2020-11-04 08:00] VITALS: BP 114/72
[2020-11-04] MEDS: ACETAMINOPHEN 325 MG TABLET PO PRN ×2 (08:56→17:23)
[2020-11-04] MEDS: LACOSAMIDE 50 MG TABLET GT SCH (08:56)
[2020-11-04] MEDS: SODIUM CHLORIDE 1000 MG TABLET GT SCH (08:56)
[2020-11-04] MEDS: LEVETIRACETAM SOL (5 ML) 100 MG/ML UDC GT SCH (08:57)
[2020-11-04] MEDS: MAGNESIUM OXIDE 400 MG TABLET GT SCH ×3 (08:57→17:23)
[2020-11-04] MEDS: DOCUSATE SODIUM LIQ 100 MG/10 ML UDC GT SCH ×2 (08:57→17:23)
[2020-11-04] MEDS: METOPROLOL TARTRATE 25 MG TABLET GT SCH ×2 (08:57→17:28)
[2020-11-04] MEDS: CLOTRIMAZOLE 1% 15 GM TUBE TP SCH ×2 (08:58→17:40)
[2020-11-04 12:00] VITALS: BP 106/68
[2020-11-04] MEDS: INSULIN REGULAR, HUMAN 100 UNIT/ML 3 ML VIAL SQ PRN (12:36)
[2020-11-04] MEDS: JEVITY 1.2 CAL 1,000 ML BOTTLE GT PRN (12:36)
[2020-11-04] MEDS ORDERED: PIPE3.379 IV (14:29)
[2020-11-04] MEDS ORDERED: VANC1PLA9 IV (14:29)
[2020-11-04 16:00] VITALS: BP 115/70
[2020-11-04] MEDS: MULTIVIT W/MINERALS 1 TAB TABLET GT SCH (17:23)
[2020-11-04] MEDS: ASCORBIC ACID 500 MG TABLET GT SCH (17:23)
[2020-11-04] MEDS: PROSOURCE / PROSTAT (PYXIS) 30 ML UDC GT SCH (17:24)
[2020-11-04 17:28] VITALS: BP 106/68
[2020-11-04] MEDS: VANCOMYCIN 1 GM in IV D5W 250 ML IV SCH (17:39)
--- NOTE | 2020-11-04 19:00 | NUR ---
TOURIST INFORMATION ASSISTANT NOTES PATIENT RESTING COMFORTABLY IN BED. ALERT AND ORIENTED X1. WHEN CALLED BY NAME, PATIENT RESPONDS BY OPENING EYES. PATIENT RESPONSIVE TO VERBAL AND TACTILE STIMULI. HOB ELEVATED. ON MECHANICAL VENTILATION ORDERED, AC 12; TV 450 FIO2 40% PEEP +5. SUCTIONED PATIENT AND OBTAINED PALE YELLOW SECRETIONS. GT INTACT AND PATENT CEDRICK FEEDING WELL OF JEVITY 1.2 AT 65ML/HR. BED IN LOWEST POSITION, LOCKED. BED ALARM ON. FREQUENT VISUAL CHECK DONE. IN NO APPARENT DISTRESS. REPORT GIVEN TO ARIEL AT [facility].
[2020-11-05] MEDS ORDERED: EPOETIN ALFA (4000 UNIT) 4,000 UNIT/ML VIAL SQ SCH (13:00)
[2020-11-05] MEDS ORDERED: EPOETIN ALFA EPBX SQ SCH (21:00)
== END 2020-11-04 20:12 | DRG 130 ==
LOC: ER 18:36 → TELE1 22:07 → TELE 11-03 15:58
PROVIDERS: ADMIT Internal Medicine; ATTEND Nurse Practitioner Acute Care
PROC: 5A1955Z Respiratory Ventilation, Greater than 96 Consecutive Hours (ICD-10-PCS; principal; 2020-10-31)
DX: J15.9 Unspecified bacterial pneumonia (principal); G40.909 Epilepsy, unspecified, not intractable, without status epilepticus; Z98.2 Presence of cerebrospinal fluid drainage device; Z99.11 Dependence on respirator [ventilator] status; Z93.1 Gastrostomy status; G93.41 Metabolic encephalopathy; D68.59 Other primary thrombophilia; E66.01 Morbid (severe) obesity due to excess calories; N39.0 Urinary tract infection, site not specified; R13.10 Dysphagia, unspecified; E43 Unspecified severe protein-calorie malnutrition; D64.9 Anemia, unspecified; Z93.0 Tracheostomy status; Z87.820 Personal history of traumatic brain injury; J96.21 Acute and chronic respiratory failure with hypoxia; Z87.440 Personal history of urinary (tract) infections; Z79.51 Long term (current) use of inhaled steroids; Z79.899 Other long term (current) drug therapy; Z98.890 Other specified postprocedural states; Z93.6 Other artificial openings of urinary tract status; R74.01 Elevation of levels of liver transaminase levels; Z86.711 Personal history of pulmonary embolism; Z87.442 Personal history of urinary calculi; L30.4 Erythema intertrigo; L89.156 Pressure-induced deep tissue damage of sacral region; L89.326 Pressure-induced deep tissue damage of left buttock; L89.316 Pressure-induced deep tissue damage of right buttock; I10 Essential (primary) hypertension; E11.9 Type 2 diabetes mellitus without complications
CPT/HCPCS: 31720; 36415; 36600; 71045-TC; 76770-TC; 80048-TC; 80076-TC; 80202-TC; 81001; 82803-TC; 82962-TC; 83540-TC; 83605-TC; 83690-TC; 83735-TC; 84100-TC; 84484-TC; 84702-TC; 85025-TC; 85730-TC; 86140-TC; 86850-TC; 87040-TC; 87081-TC; 87086-TC; 87186-TC; 93970-TC; 94002-TC; 94003-TC; 94760-TC; 94762-TC; 94799-TC; 99082-TC; A7526; C9803; G0378; J0885; J1815; J1953; J2543; J3370; J7040; J7050; J7060; U0003

== ENCOUNTER 2021-04-14 23:56 | Inpatient (IN) | payer OTHER ==
[~2021-04-14] VITALS: Ht 157.5 cm; Wt 63.5 kg
[~2021-04-14 23:56] MED LIST changes: +PIPE3.379 IV; +VANC1PLA9 IV; -ZOSYN IVPB 3.375 G in IV D5W 50ml IV SCH
--- NOTE | 2021-04-15 | NUR ---
pt sandra pa from snf to er bed 08. sent for abnormal lab. hgb of 6.8. pt is vent dependent. stable vitals, afebrile sloop captain. awaiting md downs. vent settings ac 12 Tv 450 fi02 40% peep 5. awaiting md downs.
--- NOTE | 2021-04-15 00:13 | NUR ---
dr maldonado at bedside for eval.
--- NOTE | 2021-04-15 00:20 | NUR ---
laboratory technologist at bedside for blood draw.
--- NOTE | 2021-04-15 00:29 | NUR ---
radiology at bedside for chest xray.
[2021-04-15 01:09] LABS: BASOPHILS % (AUTO) 0.8 % (0.0-2.0); EOSINOPHILS % (AUTO) 4.5 % (0.0-6.0); HEMATOCRIT 23 % (33-45); LYMPHOCYTES # (AUTO) 1.2 /CMM (0.8-4.8); LYMPHOCYTES % (AUTO) 30.4 % (20.0-44.0); MEAN CORPUSCULAR HGB CONC 31 g/dl (31.0-36.0); MEAN CORPUSCULAR VOLUME 72 fL (82-100); MONOCYTES # (AUTO) 0.2 /CMM (0.1-1.30); MONOCYTES % (AUTO) 4.9 % (2.0-12.0); NEUTROPHILS # (AUTO) 2.4 /CMM (1.8-8.9); NEUTROPHILS % (AUTO) 59.4 % (43.0-81.0); PLATELET COUNT (AUTO) 203 /CMM (150-450); RED BLOOD CELL COUNT(AUTO) 3.18 MIL/uL (4.0-5.2); WHITE BLOOD COUNT (AUTO) 4.1 K/uL (4.3-11.0)
[2021-04-15 01:14] LABS: BILIRUBIN,URINE NEGATIVE (NEGATIVE); COLOR,URINE YELLOW (YELLOW); LEUKOCYTE ESTERASE ,URINE LARGE (NEGATIVE); NITRITE, URINE NEGATIVE (NEGATIVE); PROTEIN,URINE >=300 mg/dl (NEGATIVE); UGLUCOSE NEGATIVE (NEGATIVE); UROBILINOGEN,URINE 0.2 EU/dL (0.2)
[2021-04-15] MEDS ORDERED: Z GUARD REMEDY 2 OZ OINT TP PRN (01:30)
[2021-04-15] MEDS ORDERED: ONDANSETRON HCL/PF 4 MG/2 ML VIAL IVP PRN (01:30)
[2021-04-15] MEDS ORDERED: ZOLPIDEM TARTRATE 5 MG TABLET PO PRN (01:30)
[2021-04-15] MEDS ORDERED: ACETAMINOPHEN 325 MG TABLET PO PRN (01:30)
[2021-04-15 01:34] LABS: CALCIUM, SERUM 8.6 mg/dL (8.5-10.1); CARBON DIOXIDE 25 mmol/L (21-32); CHLORIDE 109 mmol/L (98-107); CREATININE 1.8 mg/dL (0.6-1.3); GLUCOSE 82 mg/dL (74-106); SODIUM SERUM 143 mmol/L (136-145); UREA NITROGEN, BLOOD 50 mg/dL (7-18)
[2021-04-15 01:38] LABS: ALANINE AMINOTRANSFERASE 18 U/L (12-78); ALKALINE PHOSPHATASE 146 U/L (46-116); ASPARTATE AMINOTRANSFERASE 16 U/L (15-37); BILIRUBIN,DIRECT 0.1 mg/dL (0.0-0.2); BILIRUBIN,TOTAL 0.2 mg/dL (0.2-1.0); TOTAL PROTEIN, SERUM 7.6 g/dL (6.4-8.2)
[2021-04-15 01:50] LABS: ALBUMIN 1.4 g/dL (3.4-5.0)
[2021-04-15 02:03] LABS: BACTERIA,URINE Many /HPF (None Seen); RBC,URINE 21-50 /HPF (0-2); WBC,URINE 81-100 /HPF (0-3)
[2021-04-15 02:04] LABS: SQUAMOUS EPITHELIAL CELL,UR Few /HPF (None Seen)
[2021-04-15 02:57] LABS: BAND % (MANUAL) 1 % (0.0-5.0); LYMPHOCYTES % (MANUAL) 22 % (16-48); MONOCYTES % (MANUAL) 3 % (0-11.0); NEUTROPHILS % (MANUAL) 74 (42-76)
--- NOTE | 2021-04-15 03:32 | NUR ---
report given to nikos gray. pt awaitng transfer to floor.
--- NOTE | 2021-04-15 04:08 | NUR ---
pt suctioned. vital signs remain to be stable. will continue to monitor.
[2021-04-15 04:50] VITALS: BP 148/87
--- NOTE | 2021-04-15 04:50 | NUR ---
TRIM MASTER OPERATOR NOTES, RECIVED 31 YO FEMALE FROM ER DEPARTMENT ACCOMPANIED BY 2 NURSE AND RT, UNDER MEDICAL SERVICE OF ESAU YU NUCLEAR PHYSICIAN WITH ADMITTING DX ANEMIA, PATIENT OBTUNDED, UNABLE TO FOLLOW COMMANDS, ON MECHANICAL VENTILATOR TOLERATING SETTINGS WELL, NO DISTRESS NOTED AT THIS TIME, WITH CHANTALE MIDLINE IN PLACE, TELE MONITOR ATTACHED AND NSR WITH HR 60S AT THIS TIME, F/C IN PLACE PATENCY INTACT, WITH CLEAR YELLOW URINE, DRAINING BY GRAVITY, GT IN PLACE, NO ABNORMALITIES AT SITE, WOUND CONSULT FOR REDNESS IN SACRAL/BREAST UNDER FOLDS, INTER GLUTEAL REDNESS, DIETARY CONSULS WELL WILL CONTINUE TO MONITOR CLOSELY, VS 148/87, 18, 93.2, 100%, 57, WILL GET AN ORDER FOR BEAR HUGGER TO INCREASE BODY TEMPERATURE.
[2021-04-15] MEDS: IV NS 0.9% 1,000 ML IV PRN (04:59)
--- NOTE | 2021-04-15 07:23 | NUR ---
RN NOTES, ENDORSED PATIENT TO LIBAN FRENCH FOR CONTINUATION OF CARE.
[2021-04-15] MEDS ORDERED: FERR300L GT (07:33)
[2021-04-15] MEDS ORDERED: LACO10SO3 GT (07:33)
[2021-04-15] MEDS ORDERED: SODI15OR6 GT (07:33)
[2021-04-15] MEDS ORDERED: POLY15DR40 EACHEYE (07:33)
[2021-04-15] MEDS ORDERED: LEVE500S9 GT (07:33)
--- NOTE | 2021-04-15 07:40 | NUR ---
RN NOTES RECEIVED PATIENT IN BED ASLEEP, EASY TO AROUSE, WAS UNABLE TO FOLLOW COMMANDS, ON MECHANICAL VENTILATOR TOLERATING SETTINGS WELL, NO SOB , NO DISTRESS NOTED AT THIS TIME, LEFT UPPER ARM MIDLINE INTACT , TELE MONITOR ATTACHED- NORMAL SR WITH HR 60S - 68 -, F/C INTACT PATENT. , WITH CLEAR YELLOW URINE NOTED NO UNUSUAL FOUL ODOR NOTED, DRAINING BY GRAVITY, GT IN PLACE, REDNESS PM SACRAL/BREAST AREAS AT TJE UNDER FOLDS, CALL LIGHT IN REACH UNABLE TO DEMONSTATE ABILITY TO USE, WILL KEEP CLOSE TO MONITOR
[2021-04-15 08:00] VITALS: BP 124/79
--- NOTE | 2021-04-15 08:46 | NUR ---
EPIDEMIOLOGY INVESTIGATOR NOTE SEEN BY DR ANTHONY NOTIFIED THAT PATIENT T 93.2, K 5.0, HG 7.0 ,STATED THAT WILL CHECK IT OUR ALSO OK TO START G TUBE FEEDING, WILL CALLED SNF , WILL F\U
--- NOTE | 2021-04-15 10:02 | NUR ---
WOUND CARE CONSULT: PT PRESENTS WITH SACRAL SCARRING, PRESENT ON ADMISSION. Z GUARD IN USE FOR SKIN FOLDS. RECOMMENDATIONS MADE SKIN PROTECTION. DISCUSSED WITH NURSING STAFF. IN AGREEMENT WITH PLAN OF CARE. PT IS ON [facility] AIR[facility] BED. Addendum: 04/15/21 at 1003 by SANTOS HUANG WNDNU Amended: Links added.
[2021-04-15] MEDS ORDERED: JEVITY 1.2 CAL 1,000 ML BOTTLE GT PRN (11:00)
[2021-04-15 12:00] VITALS: BP 136/81
[2021-04-15] MEDS ORDERED: ZOSYN IVPB 3.375 G in IV D5W 50ml IV ONE (12:00)
--- NOTE | 2021-04-15 12:47 | NUR ---
INSURANCE LOSS ADJUSTER NOTE G TUBE FEEDING STARTED ORDERED ,KEEP HOB ELEVATED AT ALL TIME ,
--- NOTE | 2021-04-15 14:32 | NUR ---
RN NOTES URINE COLLECTED PER ORDER , NOTED AND CARRIED OUT
[2021-04-15 16:15] VITALS: BP 118/62
[2021-04-15] MEDS: PIPERACILLIN /TAZOBACTAM 3.375 G in IV D5W 100 ML IV SCH (17:27)
--- NOTE | 2021-04-15 17:28 | NUR ---
RT END OF THE SHIFT NOTE, PT. 31 YEAR OLD FEMALE TRACH PORTEX # 7 ON VENT RECEIVED 0700 AM WITH NOTED SETTINGS, ALARMS ARE SET AND FUNCTIONAL, VENT PLUGGED INTO RED OUTLET, NO DISTRESS T/O DAY CEDRICK. VENT SETTINGS AND NO CHANGES. BILATERAL CHEST RISE NOTED, AMBU BAG REMAIN AT THE BEDSIDE. B/S BILATERALLY RALES, SUX'D FOR MODERATE AMT. YELLOWISH THICK SECRETIONS PT. REMAIN STABLE. HME CHANGED, CINDER PIT CRANE OPERATOR DONE. REPORT WILL PASS TO PM SHIFT. Addendum: 04/15/21 at 1730 by YUE PETERSON RT Amended: Links added.
--- NOTE | 2021-04-15 18:29 | NUR ---
TOLERATING VENT SETTINGS. NO SOB, BI-LATERAL EYES APPEAR MORE RED AND FILLED WITH MORE FLUID, ORAL CAVITY CONTAINED LARGE AMOUNTS OF SALIVA SUCTIONED PRN, UPPER AND LOWER EXTREMITIES APPEAR TO BE FILLING WITH EDEMA NO PITTING NOTED AT THIS TIME, BILATERAL CHEST RISE NOTED WITH AUTOMATIC TRACH INTACT AND INPLACE, , AMBU BAG REMAIN AT THE BEDSIDE DURING SHIFT WILL RELAY TO ONCOMING RN TO KEEP IN PLACE PT IS A FULL CODE, BILATERALLY RALES SOUNDS NOTED IN LUNG , REPOSITONED AND FULL BODY BED BATH GIVEN WITH RN AND MOLD SHEET CLEANER TOLERATED WELL, REDNESS ON BUTTOCKS AND UNDER BREASTS TREATED WITH MD ORDERS OF OINTMENT APPLIED, NO C/O PAIN FACIAL GRIMACING NOTED APPEARS TO BE IN DISCOMFORT AT TIMES, PT. REMAIN STABLE.DURING AM SHIFT WILL CONTINUE TO RELAY TO KEEP CLOSE MONITOR ON PATIENT APPEARS LETHARGIC
[2021-04-15 19:03] LABS: BILIRUBIN,URINE NEGATIVE (NEGATIVE); COLOR,URINE YELLOW (YELLOW); LEUKOCYTE ESTERASE ,URINE SMALL (NEGATIVE); NITRITE, URINE NEGATIVE (NEGATIVE); PROTEIN,URINE >=300 mg/dl (NEGATIVE); UGLUCOSE NEGATIVE (NEGATIVE); UROBILINOGEN,URINE 0.2 EU/dL (0.2)
[2021-04-15 19:05] LABS: URINE TOTAL PROTEIN 527.8 mg/dL (0-11.9)
[2021-04-15 19:19] LABS: BACTERIA,URINE Many /HPF (None Seen); SQUAMOUS EPITHELIAL CELL,UR Many /HPF (None Seen)
--- NOTE | 2021-04-15 19:25 | NUR ---
RECEIVED PT ON BED OBTUNDED EYES OPEN, ON TRACH/VENT SETTING CA MD SPO2 100% NO SIGN OF ANY RESPIRATORY DISTRESS, TELE MONITOR READS SINUS RHYTHM 80'S HAVE GTUBE ON PLACE RESIDUAL 10ML WITH ONGOING JEVITY @30ML/HR TOLERATING WELL, HAVE CHANTALE MIDLINE WITH ONGOING NS @ 60ML/HR INFUSING WELL, MONTERO CATHETER IN PLACE WITH YELLOW URINE DRAINING VIA GRAVITY BED AT LOWEST POSITION AND LOCKED SIDE RAILS UP X 2 CALL LIGHT WITHIN REACH WILL CONT TO MONITOR
[2021-04-15 20:00] VITALS: BP 123/58
[2021-04-15 20:11] LABS: EOSINOPHIL,URINE None Seen
[2021-04-16] VITALS (9 sets, daily range): BP systolic 122–137; BP diastolic 62–79
[2021-04-16] MEDS: PIPERACILLIN /TAZOBACTAM 3.375 G in IV D5W 100 ML IV SCH ×3 (01:05→18:01)
[2021-04-16] MEDS: IV NS 0.9% 1,000 ML IV PRN (01:05)
--- NOTE | 2021-04-16 06:38 | NUR ---
PT ON BED STILL OBTUNDED, TOLERATING VENT SETTING SPO2 100% NO SIGN OF DISTRESS, TELE MONITOR READS SINUS RHYTHM 80'S NO SIGNIFICANT CHANGES ON CONDITION NOTED ALL NEEDS ATTENDED, SAFETY MEASURE MAINTAIN BED ON LOWEST POSITION AND LOCKED SIDE RAILS UP X 2, WILL ENDORSED TO AM SHIFT RN
[2021-04-16 06:43] LABS: BASOPHILS % (AUTO) 0.9 % (0.0-2.0); EOSINOPHILS % (AUTO) 5.8 % (0.0-6.0); HEMATOCRIT 22 % (33-45); LYMPHOCYTES # (AUTO) 1.5 /CMM (0.8-4.8); LYMPHOCYTES % (AUTO) 31.5 % (20.0-44.0); MEAN CORPUSCULAR HGB CONC 30 g/dl (31.0-36.0); MEAN CORPUSCULAR VOLUME 74 fL (82-100); MONOCYTES # (AUTO) 0.3 /CMM (0.1-1.30); MONOCYTES % (AUTO) 6.6 % (2.0-12.0); NEUTROPHILS # (AUTO) 2.6 /CMM (1.8-8.9); NEUTROPHILS % (AUTO) 55.2 % (43.0-81.0); PLATELET COUNT (AUTO) 240 /CMM (150-450); WHITE BLOOD COUNT (AUTO) 4.6 K/uL (4.3-11.0)
[2021-04-16 06:47] LABS: HEMOGLOBIN 6.6 g/dL (11.5-14.8)
--- NOTE | 2021-04-16 07:30 | NUR ---
RN OPENING NOTES Patient is alert and responsive. Patient is breathing even and unlabored. On mechanical vent setting with 02 saturation of 98%. No s/s of respiratory distress. HOB kept elevated. On g tube feeding cathleen peter well, Will continue to monitor. Call light with in reach. Addendum: 04/16/21 at 1840 by DELONTE FANG RN CORRECTION Patient opens eyes intermittently to stimuli
[2021-04-16 07:41] LABS: CREATININE 2.1 mg/dL (0.6-1.3); PHOSPHORUS 7.8 mg/dL (2.5-4.9); POTASSIUM 5.2 mmol/L (3.5-5.1)
[2021-04-16 07:48] LABS: MAGNESIUM 4.2 mg/dL (1.8-2.4)
--- NOTE | 2021-04-16 07:54 | NUR ---
RT Pt received trached on mechanical ventilation with noted settings. Vent is plugged into red outlet, spare trach by bedside. No SOB or respiratory distress noted. Addendum: 04/16/21 at 1003 by LENIN SINCLAIR RT Amended: Links added.
[2021-04-16 08:45] LABS: EOSINOPHILS % (MANUAL) 5 % (0-4); LYMPHOCYTES % (MANUAL) 30 % (16-48); MONOCYTES % (MANUAL) 7 % (0-11.0); NEUTROPHILS % (MANUAL) 58 (42-76)
--- NOTE | 2021-04-16 09:00 | NUR ---
Patient noted with HGB of 6.6, 1 prbc unit started. MD Eckert aware of previous shift orders.
[2021-04-16] MEDS ORDERED: FUROSEMIDE 20 MG/2 ML VIAL IV SCH (10:00)
--- NOTE | 2021-04-16 10:00 | NUR ---
Results received for Mg+ and K+, Informed MD Eckert and NAZARIO Lewis. New orders placed for lasix by NAZARIO LEWIS
[2021-04-16] MEDS: IV 1/2NS 1000 ML 1,000 ML IV PRN (10:13)
[2021-04-16] MEDS: NEPRO 1,000 ML BOTTLE GT PRN (15:55)
[2021-04-16] MEDS: SEVELAMER CARBONATE 800 MG POWD.PACK GT SCH (17:31)
--- NOTE | 2021-04-16 19:07 | NUR ---
RN CLOSING NOTES Patient noted with eyes open and obtunded. Patient is breathing even and unlabored. On mechanical vent setting with 02 saturation of 95%. IV site to left upper arm midline running NS 0.45% , peter well. No s/s of respiratory distress. HOB kept elevated. On g tube feeding Nepro peter well. Patient noted with urine output of 600 cc during shift. Turned and repositioned q2h and prn. Endorsed to next shift for GUILLERMO.
--- NOTE | 2021-04-16 20:00 | NUR ---
RN NOTE RECEIVED PT IN BED OBTUNDED,PT IS ON MECHANICAL VENT VIA TRACH, FIO2 30% SATING 99%,HAS UN LABORED BREATHING, PT HAS FEEDING TUBE NEPRO RUNNING AT 30ML/H PT HAS RESIDUAL 30 ML, CHECKED FOR PLACEMENT. SAFETY MEASURES IN PLACE.
[2021-04-17] VITALS: BP 128/84
[2021-04-17] MEDS: PIPERACILLIN /TAZOBACTAM 3.375 G in IV D5W 100 ML IV SCH ×3 (01:50→17:08)
[2021-04-17] MEDS: IV 1/2NS 1000 ML 1,000 ML IV PRN (02:57)
[2021-04-17 04:00] VITALS: BP 141/75
[2021-04-17 07:07] LABS: COMPLEMENT C3, SERUM 68 mg/dL (82-167); COMPLEMENT C4, SERUM 10 mg/dL (12-38)
--- NOTE | 2021-04-17 07:10 | NUR ---
RN NOTE REPORT GIVEN TO ONCOMING SHIFT FOR GUILLERMO.
[2021-04-17 08:00] VITALS: BP 115/67
--- NOTE | 2021-04-17 08:03 | NUR ---
RING PACKER NOTES RECEIVED PATIENT IN BED, WITH TRACH TUBE VENT DEPENDENT, TRACH SUCTIONING DONE PATIENT IS OBTUNDED WITH OPEN EYES, ON TELE MONITOR SR HR OF 68 WITH MONTERO CATHETER TO GRAVITY URINE NOTED, PATIENT ON G-TUBE FEEDING WITH 5 ML RESIDUAL NOTED, KEEP HOB ELEVATED, ,ON IVF ORDERED ORDERED, WITH MID LINE IN PLACE AND FLUSHED WELL ,BED IN LOWEST AND LOCKED POSITION, WILL CONT TO MONITOR
[2021-04-17] MEDS: SEVELAMER CARBONATE 800 MG POWD.PACK GT SCH ×3 (08:17→17:08)
[2021-04-17 08:39] LABS: BASOPHILS # (AUTO) 0.1 /CMM (0.0-0.2); EOSINOPHILS % (AUTO) 5.2 % (0.0-6.0); HEMATOCRIT 26 % (33-45); LYMPHOCYTES # (AUTO) 1.6 /CMM (0.8-4.8); LYMPHOCYTES % (AUTO) 27.7 % (20.0-44.0); MEAN CORPUSCULAR HGB CONC 31 g/dl (31.0-36.0); MEAN CORPUSCULAR VOLUME 78 fL (82-100); MONOCYTES # (AUTO) 0.3 /CMM (0.1-1.30); MONOCYTES % (AUTO) 4.8 % (2.0-12.0); NEUTROPHILS # (AUTO) 3.6 /CMM (1.8-8.9); NEUTROPHILS % (AUTO) 61.3 % (43.0-81.0); PLATELET COUNT (AUTO) 230 /CMM (150-450); RED BLOOD CELL COUNT(AUTO) 3.39 MIL/uL (4.0-5.2); WHITE BLOOD COUNT (AUTO) 5.9 K/uL (4.3-11.0)
--- NOTE | 2021-04-17 09:00 | NUR ---
senior telecommunications engineer note spoke with dr lua about ivf ok to cont ivf
[2021-04-17 09:02] LABS: CALCIUM, SERUM 8.1 mg/dL (8.5-10.1)
[2021-04-17] MEDS ORDERED: FUROSEMIDE 40 MG/4 ML VIAL IV ONE (09:30)
[2021-04-17] MEDS ORDERED: SODIUM POLYSTYRENE SULFONATE 15 G/60 ML BOTTLE PO ONE (10:00)
--- NOTE | 2021-04-17 10:00 | NUR ---
telehealth director note spoke with dr Britta villanueva to cont current vent setting
[2021-04-17 10:08] LABS: PTH, INTACT 24 pg/mL (15-65)
--- NOTE | 2021-04-17 10:43 | NUR ---
telehealth nurse note\ per eusebia metalizing supervisor ok to use free water q4 hour and ok to cont ivf .aware that still arms ans feet swollen
[2021-04-17 12:00] VITALS: BP 122/69
--- NOTE | 2021-04-17 12:00 | NUR ---
CONSERVATION ASSISTANT NOTE ALL NEEDS ATTENDED CONT WITH VENT SETTING, NOT IN DISTRESS
[2021-04-17 12:07] LABS: *ANA ANTI-CENTROMERE B AB <0.2 AI (0.0-0.9); *ANA ANTI-DNA(DS) AB, QN >300 IU/mL (0-9); *ANA ANTI-JO-1 <0.2 AI (0.0-0.9); *ANA ANTICHROMATIN ANTIBODY >8.0 AI (0.0-0.9); *ANA RNP ANTIBODIES 7.2 AI (0.0-0.9); *ANA SJOGREN'S ANTI-SS-A >8.0 AI (0.0-0.9); *ANA SJOGREN'S ANTI-SS-B 0.4 AI (0.0-0.9); *ANAANTI-SCLERODERMA-70 AB <0.2 AI (0.0-0.9); *ANASMITH AB >8.0 AI (0.0-0.9)
[2021-04-17 16:00] VITALS: BP 124/71
--- NOTE | 2021-04-17 16:53 | NUR ---
SCHOOL VOCATIONAL EDUCATOR NOTE CONT ON G TUBE FEEDING TURN REPOSITION ,ALL NEEDS ATTENDED ,WILL CONT TO MONITOR
--- NOTE | 2021-04-17 18:15 | NUR ---
HORSE TREKKING GUIDE NOTES PATIENT IN BED WITH OPEN EYES OBTUNDED, TRACH AND VENT SETTIN ORDERED, MONTERO CATHETER DRAINING WELL, PATIENT WITH GT FEEDING WITH 0 RESIDUAL POTASSIUM 4.0 AT THIS TIME AFTER KAYEXALATE AND LASIX ORDERED, ON FREE WATER FLUSH ORDERED TURNED AND REPOSITION, KEPT CLEAN AND DRY, SAFETY MEASURES IMPLEMENTED, WILL CONTINUE TO MONITOR, WILL ENDORSE TO NEXT UP COMING RN.
--- NOTE | 2021-04-17 19:45 | NUR ---
RCVD TRACH PT WITH PORTEX 7 ON VENT WITH THE SETTINGS OF AC 12,450,30%, PEEP 5. PT IS OBTUNDED. SUCTIONED MODERATE AMOUNT OF BLOOD TINGED / PEARSON THICK SECRETIONS VENT PLUGGED INTO RED OUTLET, VENT ALARMS SET AND AUDIBLE. NO RESPIRATORY DISTRESS NOTED AT THIS TIME. WILL CONTINUE TO MONITOR T/O SHIFT.
[2021-04-17 20:00] VITALS: BP 133/67
[2021-04-18] VITALS: BP 123/74
[2021-04-18] MEDS: PIPERACILLIN /TAZOBACTAM 3.375 G in IV D5W 100 ML IV SCH ×3 (01:26→18:07)
[2021-04-18 04:00] VITALS: BP 133/81
[2021-04-18] MEDS: NEPRO 1,000 ML BOTTLE GT PRN (05:24)
[2021-04-18 06:07] LABS: *SPE A/G RATIO 0.4 (0.7-1.7); *SPE ALPHA-1-GLOBULIN 0.5 g/dL (0.0-0.4); *SPE ALPHA-2-GLOBULIN 0.9 g/dL (0.4-1.0); *SPE GLOBULIN, TOTAL 4.7 g/dL (2.2-3.9); *SPE M-SPIKE Not Observed g/dL (Not Observed); *SPEGAMMA GLOBULIN 2.3 g/dL (0.4-1.8)
[2021-04-18 06:24] LABS: BASOPHILS % (AUTO) 0.5 % (0.0-2.0); EOSINOPHILS % (AUTO) 3.3 % (0.0-6.0); HEMATOCRIT 24 % (33-45); HEMOGLOBIN 7.6 g/dL (11.5-14.8); LYMPHOCYTES # (AUTO) 1.6 /CMM (0.8-4.8); LYMPHOCYTES % (AUTO) 23.4 % (20.0-44.0); MEAN CORPUSCULAR HGB CONC 31 g/dl (31.0-36.0); MEAN CORPUSCULAR VOLUME 76 fL (82-100); MONOCYTES # (AUTO) 0.4 /CMM (0.1-1.30); MONOCYTES % (AUTO) 6.7 % (2.0-12.0); NEUTROPHILS # (AUTO) 4.4 /CMM (1.8-8.9); NEUTROPHILS % (AUTO) 66.1 % (43.0-81.0); PLATELET COUNT (AUTO) 228 /CMM (150-450); RED BLOOD CELL COUNT(AUTO) 3.21 MIL/uL (4.0-5.2); WHITE BLOOD COUNT (AUTO) 6.7 K/uL (4.3-11.0)
[2021-04-18 06:50] LABS: CALCIUM, SERUM 7.8 mg/dL (8.5-10.1); PHOSPHORUS 6.4 mg/dL (2.5-4.9); POTASSIUM 3.3 mmol/L (3.5-5.1)
--- NOTE | 2021-04-18 06:59 | NUR ---
RN notes Obtunded, no eye contact, non verbal. Vent setting well tolerated. No significant change of condition. No physical manifestation of pain. Noted with scant bleeding during suctioning. Kept clean and dry. Will endorse to next shift for continuity of care.
[2021-04-18 08:00] VITALS: BP 127/61
[2021-04-18] MEDS: SEVELAMER CARBONATE 800 MG POWD.PACK GT SCH ×3 (09:31→18:07)
[2021-04-18] MEDS ORDERED: POTASSIUM CHLORIDE 20 MEQ POWDER PACKET GT SCH (10:30)
[2021-04-18 12:00] VITALS: BP 127/61
[2021-04-18 16:00] VITALS: BP 125/73
[2021-04-18 20:00] VITALS: BP 139/80
--- NOTE | 2021-04-18 20:00 | NUR ---
VICE CHAIR NOTES RECEIVED PATIENT IN BED,WITH EYE CLOSED , WITH TRACH TUBE VENT DEPENDENT, TRACH SUCTIONING DONE PATIENT IS OBTUNDED, NO SOB NO DISTRESS NOTED ,V/S STABLE AFEBRILE .ON TELE MONITOR SR HR OF 61 WITH MONTERO CATHETER TO GRAVITY URINE NOTED, PATIENT ON G-TUBE FEEDING WITH NO RESIDUAL NOTED, KEEP HOB ELEVATED, ,ON IVF ORDERED ORDERED, WITH MID LINE IN PLACE AND FLUSHED WELL ,BED IN LOWEST AND LOCKED POSITION, WILL CONT TO MONITOR
--- NOTE | 2021-04-18 21:45 | NUR ---
RT pt received on mechanical vent with current settings. trached, shiley 7 xlt. vent plugged in to red outlet. ambu bag at hob. no sob, no resp distress. moderate secretions suctioned via trach. will continue to monitor Addendum: 04/18/21 at 2158 by NICOLA MURRIETA RT portex 7
[2021-04-19] VITALS: BP 147/73
[2021-04-19 04:00] VITALS: BP 159/84
--- NOTE | 2021-04-19 07:15 | NUR ---
RN OPENING NOTE Received patient asleep in bed. Appears calm and relaxed no signs of distress. Patient on trach and vent Portex 7 AC 14 TV450 Fio2 30% PEEP 5 tolerating well. No sign of pain or discomfort. Has CHANTALE Midline positional flushes with resistance. Unable to get blood return. Will inform station installation supervisor. Patient on a FC. GTF running Nepro 30ml/hr plan to flush 250cc q6h. Will cont to monitor. Safety measures maintained.
--- NOTE | 2021-04-19 07:20 | NUR ---
tele nirses notes pts remain bed cntinue on venty support ,stable report given to RN Nisa for continuity of care.
[2021-04-19 08:00] VITALS: BP 155/88
[2021-04-19] MEDS: SEVELAMER CARBONATE 800 MG POWD.PACK GT SCH ×3 (08:13→17:23)
[2021-04-19 10:59] LABS: BASOPHILS # (AUTO) 0.1 /CMM (0.0-0.2); BASOPHILS % (AUTO) 1.5 % (0.0-2.0); EOSINOPHILS % (AUTO) 5.4 % (0.0-6.0); HEMATOCRIT 29 % (33-45); HEMOGLOBIN 8.5 g/dL (11.5-14.8); LYMPHOCYTES % (AUTO) 26.4 % (20.0-44.0); MEAN CORPUSCULAR HGB CONC 29 g/dl (31.0-36.0); MEAN CORPUSCULAR VOLUME 80 fL (82-100); MONOCYTES # (AUTO) 0.6 /CMM (0.1-1.30); MONOCYTES % (AUTO) 7.9 % (2.0-12.0); NEUTROPHILS # (AUTO) 4.4 /CMM (1.8-8.9); NEUTROPHILS % (AUTO) 58.8 % (43.0-81.0); PLATELET COUNT (AUTO) 176 /CMM (150-450); RED BLOOD CELL COUNT(AUTO) 3.61 MIL/uL (4.0-5.2); WHITE BLOOD COUNT (AUTO) 7.6 K/uL (4.3-11.0)
[2021-04-19 11:47] LABS: BILIRUBIN,TOTAL 0.4 mg/dL (0.2-1.0); CALCIUM, SERUM 8.3 mg/dL (8.5-10.1); MAGNESIUM 2.8 mg/dL (1.8-2.4); PHOSPHORUS 5.7 mg/dL (2.5-4.9); POTASSIUM 4.4 mmol/L (3.5-5.1); TOTAL PROTEIN, SERUM 7.3 g/dL (6.4-8.2)
[2021-04-19 11:52] LABS: ALBUMIN 1.4 g/dL (3.4-5.0)
[2021-04-19 12:00] VITALS: BP 165/89
[2021-04-19 16:00] VITALS: BP 164/85
--- NOTE | 2021-04-19 16:00 | NUR ---
No BP meds for pt SBP 165mmHg informed Dr. Eckert
[2021-04-19] MEDS: CLONIDINE HCL 0.1 MG TABLET PO PRN (16:40)
[2021-04-19] MEDS: NEPRO 1,000 ML BOTTLE GT PRN (16:42)
--- NOTE | 2021-04-19 18:51 | NUR ---
RN CLOSING NOTE Patient in bed obtunded. Appears calm and relaxed. Tele reading SB 55 bpm. No signs of distress. Trach and vent setting tolerating well. Suction as needed. No bleeding. GTF feeding Nepro 30ml/hr. All due meds given. Emptied rodriguez yellow urine. Vital signs within normal limits. Will endorse to retail loan officer nurse for joaquim.
[2021-04-19 20:00] VITALS: BP 154/76
--- NOTE | 2021-04-19 20:00 | NUR ---
DINNER COOK NOTES RECEIVED PATIENT IN BED,WITH EYE CLOSED , WITH TRACH TUBE VENT DEPENDENT, TRACH SUCTIONING DONE PATIENT IS OBTUNDED, NO SOB NO DISTRESS NOTED ,V/S STABLE AFEBRILE .ON TELE MONITOR SR HR OF 71 WITH MONTERO CATHETER TO GRAVITY URINE NOTED, PATIENT ON G-TUBE FEEDING WITH NO RESIDUAL NOTED, KEEP HOB ELEVATED, ,ON IVF ORDERED ORDERED, WITH MID LINE IN PLACE AND FLUSHED WELL ,BED IN LOWEST AND LOCKED POSITION, WILL CONT TO MONITOR
[2021-04-20] VITALS: BP 132/77
[2021-04-20 04:00] VITALS: BP 157/78
--- NOTE | 2021-04-20 05:59 | NUR ---
EXPLOSIVES WORKER NOTES PTS IN BED CONTINUE ON VENT SETTINGS ORDERED ,NO SOB NO DISTRESS NOTED , ALL NEEDS ATTENDED TOO CALL LIGHT WITHIN REACH .KEPT PTS CLEAN DRY AND COMFORTABLE, WILL ENDORSE TO RN DAY SHIFT FOR CONTINUITY OF CARE.
[2021-04-20 06:52] LABS: BASOPHILS % (AUTO) 0.3 % (0.0-2.0); EOSINOPHILS % (AUTO) 4.4 % (0.0-6.0); HEMATOCRIT 26 % (33-45); LYMPHOCYTES # (AUTO) 1.1 /CMM (0.8-4.8); LYMPHOCYTES % (AUTO) 16.2 % (20.0-44.0); MEAN CORPUSCULAR HGB CONC 31 g/dl (31.0-36.0); MEAN CORPUSCULAR VOLUME 77 fL (82-100); MONOCYTES # (AUTO) 0.4 /CMM (0.1-1.30); MONOCYTES % (AUTO) 5.9 % (2.0-12.0); NEUTROPHILS # (AUTO) 4.9 /CMM (1.8-8.9); NEUTROPHILS % (AUTO) 73.2 % (43.0-81.0); PLATELET COUNT (AUTO) 279 /CMM (150-450); RED BLOOD CELL COUNT(AUTO) 3.36 MIL/uL (4.0-5.2); WHITE BLOOD COUNT (AUTO) 6.7 K/uL (4.3-11.0)
[2021-04-20 07:04] LABS: CALCIUM, SERUM 8.7 mg/dL (8.5-10.1); CREATININE 1.6 mg/dL (0.6-1.3); POTASSIUM 3.2 mmol/L (3.5-5.1)
[2021-04-20] MEDS: SEVELAMER CARBONATE 800 MG POWD.PACK GT SCH ×3 (07:14→17:13)
--- NOTE | 2021-04-20 07:20 | NUR ---
RECEIVED PT ON BED OBTUNDED EYES OPEN, ON TRACH/VENT SETTING WV MD SPO2 100% NO SIGN OF ANY RESPIRATORY DISTRESS, TELE MONITOR READS SINUS RHYTHM 80'S HAVE GTUBE ON PLACE RESIDUAL 10ML WITH ONGOING JEVITY @30ML/HR TOLERATING WELL, HAVE CHANTALE and LIZBET MIDLINE PATENT AND FLUSHED, MONTERO CATHETER IN PLACE WITH YELLOW URINE DRAINING VIA GRAVITY BED AT LOWEST POSITION AND LOCKED SIDE RAILS UP X 2 CALL LIGHT WITHIN REACH WILL CONT TO MONITOR
[2021-04-20 08:00] VITALS: BP 153/85
[2021-04-20] MEDS ORDERED: TRAMADOL HCL 50 MG TABLET GT PRN (10:00)
[2021-04-20] MEDS ORDERED: NA PHOS,M-B/NA PHOS,DI-BA 1 EA ENEMA RC PRN (10:00)
[2021-04-20] MEDS ORDERED: BISACODYL SUPP (10 MG) 10 MG/SUPP.RECT SUPP.RECT RC PRN (10:00)
[2021-04-20] MEDS ORDERED: MAGNESIUM HYDROXIDE 30 ML UDC GT PRN (10:00)
[2021-04-20] MEDS ORDERED: SCOPOLAMINE PATCH 1 MG/72HR TD SCH (11:00)
[2021-04-20] MEDS: POTASSIUM CL. PREMIX PERIPHER. 50 ML IV SCH ×4 (11:05→14:00)
[2021-04-20] MEDS: GLYCOPYRROLATE 1 MG TABLET GT SCH ×2 (11:29→17:13)
[2021-04-20 12:00] VITALS: BP 163/89
[2021-04-20 12:08] LABS: EOSINOPHILS % (MANUAL) 7 % (0-4); LYMPHOCYTES % (MANUAL) 17 % (16-48); MONOCYTES % (MANUAL) 5 % (0-11.0); NEUTROPHILS % (MANUAL) 71 (42-76)
[2021-04-20] MEDS: CLONIDINE HCL 0.1 MG TABLET PO PRN (12:31)
[2021-04-20] MEDS ORDERED: MAGNESIUM OXIDE 400 MG TABLET GT SCH (13:00)
[2021-04-20 16:00] VITALS: BP 156/84
[2021-04-20] MEDS: METOPROLOL TARTRATE 25 MG TABLET GT SCH (17:13)
[2021-04-20] MEDS: MULTIVITAMINS,THERAGRAN 1 UDTAB TABLET PO SCH (17:13)
[2021-04-20] MEDS: DOCUSATE SODIUM LIQ 100 MG/10 ML UDC GT SCH (17:14)
[2021-04-20] MEDS: PROSTAT (PYXIS) 30 ML UDC GT SCH (17:14)
--- NOTE | 2021-04-20 18:44 | NUR ---
PT ON BED STILL OBTUNDED, TOLERATING VENT SETTING SPO2 100% NO SIGN OF DISTRESS, TELE MONITOR READS SINUS RHYTHM 80'S NO SIGNIFICANT CHANGES ON CONDITION NOTED ALL NEEDS ATTENDED, SAFETY MEASURE MAINTAIN BED ON LOWEST POSITION AND LOCKED SIDE RAILS UP X 2, WILL ENDORSED TO NOC SHIFT RN
[2021-04-20 20:00] VITALS: BP 156/79
[2021-04-20] MEDS: LACOSAMIDE ORAL SOLN 50 MG/5 ML UDC GT SCH (21:30)
[2021-04-20] MEDS: LEVETIRACETAM SOL (5 ML) 100 MG/ML UDC GT SCH (21:31)
[2021-04-21] VITALS: BP 148/73
[2021-04-21] MEDS: GLYCOPYRROLATE 1 MG TABLET GT SCH ×4 (01:02→17:31)
[2021-04-21] MEDS: NEPRO 1,000 ML BOTTLE GT PRN (02:10)
[2021-04-21 04:00] VITALS: BP 159/83
[2021-04-21] MEDS: CLONIDINE HCL 0.1 MG TABLET PO PRN (05:52)
[2021-04-21 07:45] LABS: CALCIUM, SERUM 8.5 mg/dL (8.5-10.1); CREATININE 1.7 mg/dL (0.6-1.3); MAGNESIUM 2.5 mg/dL (1.8-2.4); PHOSPHORUS 4.8 mg/dL (2.5-4.9); POTASSIUM 3.7 mmol/L (3.5-5.1)
[2021-04-21 08:00] VITALS: BP 135/78
[2021-04-21] MEDS: METOPROLOL TARTRATE 25 MG TABLET GT SCH ×2 (08:29→17:31)
[2021-04-21] MEDS: SEVELAMER CARBONATE 800 MG POWD.PACK GT SCH ×3 (08:29→17:31)
[2021-04-21] MEDS: DOCUSATE SODIUM LIQ 100 MG/10 ML UDC GT SCH ×2 (08:29→17:31)
[2021-04-21] MEDS: LACOSAMIDE ORAL SOLN 50 MG/5 ML UDC GT SCH (08:30)
[2021-04-21] MEDS: LEVETIRACETAM SOL (5 ML) 100 MG/ML UDC GT SCH (08:34)
[2021-04-21] MEDS ORDERED: NEPRO 1,000 ML BOTTLE GT PRN (09:00)
[2021-04-21] MEDS ORDERED: FERROUS SULFATE UDC 300 MG/5 ML UDC GT SCH (09:00)
[2021-04-21 12:00] VITALS: BP 139/70
[2021-04-21 16:00] VITALS: BP 150/81
--- NOTE | 2021-04-21 17:21 | NUR ---
RT SHIFT NOTE, PT. 31 YEAR OLD FEMALE TRACH PORTEX # 7 ON VENT REMAIN STABLE AND CEDRICK. VENT WITH NOTED SETTINGS, ALARMS ARE SET AND FUNCTIONAL, VENT PLUGGED INTO RED OUTLET, NO DISTRESS T/O DAY NO CHANGES T/O DAY. BILATERAL CHEST RISE NOTED, AMBU BAG REMAIN AT THE BEDSIDE. B/S BILATERALLY RHONCHI-RALES, SUX'D FOR MODERATE AMT. YELLOWISH THICK SECRETIONS PT. REMAIN STABLE. 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 REPORT WILL PASS TO PM SHIFT. Addendum: 04/21/21 at 1723 by YUE PETERSON RT Amended: Links added.
[2021-04-21 17:31] VITALS: BP 150/81
[2021-04-21] MEDS: MULTIVITAMINS,THERAGRAN 1 UDTAB TABLET PO SCH (17:31)
[2021-04-21] MEDS: PROSTAT (PYXIS) 30 ML UDC GT SCH (17:31)
--- NOTE | 2021-04-21 18:41 | NUR ---
RN CLOSING NOTES PATIENT WILL BE DC TO FACILITY, STABLE, REPORT GIVEN TO FACILITY, DISCHARGE PAPERWORK DONE, WILL ENDORSE TO PM SHIFT RN FOR GUILLERMO
--- NOTE | 2021-04-21 19:16 | NUR ---
report given to jasiel gray at facility
--- NOTE | 2021-04-21 19:40 | NUR ---
RN NOTE REC'D REPORT FROM BEE LOUIE. PT OPENS EYES, NONVERBAL OBTUNDED, TRACH TO VENT. TOLERATING SETTINGS PORTEX 7 AC 12 TV 450 FIO2 30% PEEP 5. NO SOB OR RESP DISTRESS. PT SUCTIONED. PT HAS LIZBET MIDLINE. PER REPORT AND FACILITY, FACILITY ASKS TO KEEP ONE MIDLINE. PT HAS GT, AUSCULTATED FOR PLACEMENT. FLUSHED. MONTERO CATH PRESENT.ALL SAFETY MEASURES IN PLACE. HOB ELEVATED SIDE RAILS UP X2 BED LOCKED IN LOWEST POSITION WILL CONT TO MONITOR.
--- NOTE | 2021-04-21 20:05 | NUR ---
RN NOTE AM JOANNE PARAMEDICS PICKING UP PT TO TRANSFER TO [facility]. ID BAND OFF. VS STABLE. REPORT GIVEN TO EMPERATRIZ LANDA EMT. Addendum: 04/21/21 at 2039 by TILA MALDONADO RN IVÁN TRUJILLO
[2021-04-22] MEDS ORDERED: EPOETIN ALFA-EPBX 10,000 UNIT/ML VIAL SQ SCH (15:00)
== END 2021-04-21 21:21 | DRG 720 ==
LOC: ER 23:57 → TELE1 04-15 02:28
PROVIDERS: ADMIT Internal Medicine; ATTEND Internal Medicine
PROC: 5A1955Z Respiratory Ventilation, Greater than 96 Consecutive Hours (ICD-10-PCS; principal; 2021-04-15)
PROC: 30233N1 Transfusion of Nonautologous Red Blood Cells into Peripheral Vein, Percutaneous Approach (ICD-10-PCS; 2021-04-15)
PROC: 05HA33Z Insertion of Infusion Device into Left Brachial Vein, Percutaneous Approach (ICD-10-PCS; 2021-04-16)
PROC: 05H933Z Insertion of Infusion Device into Right Brachial Vein, Percutaneous Approach (ICD-10-PCS; 2021-04-19)
DX: A41.9 Sepsis, unspecified organism (principal); N17.0 Acute kidney failure with tubular necrosis; Z99.11 Dependence on respirator [ventilator] status; E43 Unspecified severe protein-calorie malnutrition; G93.41 Metabolic encephalopathy; J96.10 Chronic respiratory failure, unspecified whether with hypoxia or hypercapnia; E46 Unspecified protein-calorie malnutrition; T68.XXXA Hypothermia, initial encounter; J90 Pleural effusion, not elsewhere classified; J44.9 Chronic obstructive pulmonary disease, unspecified; D68.59 Other primary thrombophilia; E11.22 Type 2 diabetes mellitus with diabetic chronic kidney disease; D64.9 Anemia, unspecified; I12.9 Hypertensive chronic kidney disease with stage 1 through stage 4 chronic kidney disease, or unspecified chronic kidney disease; G40.909 Epilepsy, unspecified, not intractable, without status epilepticus; N18.9 Chronic kidney disease, unspecified; N39.0 Urinary tract infection, site not specified; E83.41 Hypermagnesemia; E87.0 Hyperosmolality and hypernatremia; Z87.440 Personal history of urinary (tract) infections; Z93.6 Other artificial openings of urinary tract status; Z74.09 Other reduced mobility; E66.01 Morbid (severe) obesity due to excess calories; E87.5 Hyperkalemia; Z87.820 Personal history of traumatic brain injury; M89.9 Disorder of bone, unspecified; R13.10 Dysphagia, unspecified; Z86.711 Personal history of pulmonary embolism; Z79.01 Long term (current) use of anticoagulants; Z87.442 Personal history of urinary calculi; Z93.0 Tracheostomy status; Z93.1 Gastrostomy status; Z98.2 Presence of cerebrospinal fluid drainage device
CPT/HCPCS: 31720; 36410; 36415; 71045-TC; 76770-TC; 80048-TC; 80053-TC; 80061-TC; 80076-TC; 81001; 82550-TC; 82570-TC; 83605-TC; 83735-TC; 83970; 84100-TC; 84132-TC; 84155; 84155-TC; 84165; 84300-TC; 84484-TC; 84702-TC; 85025-TC; 85652-TC; 85730-TC; 86225; 86235; 86706; 86803; 86850-TC; 87040-TC; 87081-TC; 87086-TC; 87340; 94002-TC; 94003-TC; 94760-TC; 94762-TC; 94799-TC; A7526; G0378; J1940; J1953; J2543; J3480; J3490; J7030; J7050; J7060; P9016; U0003

== ENCOUNTER 2021-06-16 16:30 | Inpatient (IN) | payer OTHER ==
[~2021-06-16] VITALS: Ht 162.6 cm; Wt 71.2 kg
[2021-06-16] MEDS: LACOSAMIDE ORAL SOLN 50 MG/5 ML UDC GT SCH (01:00)
[2021-06-16] MEDS: ENOXAPARIN SODIUM 30 MG/0.3 ML DISP.SYRIN SQ SCH (01:00)
[2021-06-16] MEDS: LANOLIN/MIN OIL/PETROLAT,WHT 3.5 GM TUBE EACHEYE SCH (01:00)
[~2021-06-16 16:30] MED LIST changes: -ACET-2605 GT; -ENOX40DI SQ; +FERR300L GT; +LACO10SO GT; -LACO200T2 GT; -LEVE1000 GT; +LEVE500S9 GT; -PIPE3.379 IV; +POLY15DR40 EACHEYE; -PROP10DR10 EACHEYE; -SODI1TAB66 GT; -VANC1PLA9 IV
--- NOTE | 2021-06-16 16:30 | NUR ---
PT KRISTI FROM [facility]- 6.12/19. PT IS AAOX0, ON VENT VIA TRACH, HOOKED TO BRAND SALES MANAGER, KEPT RESTED AND COMFORTABLE. WILL CONTINUE TO MONITOR.
--- NOTE | 2021-06-16 16:41 | NUR ---
SENT BY PCP FOR LOW H&H - 6.12/19; SLIGHT FEVER - 100.6 F.
--- NOTE | 2021-06-16 16:44 | NUR ---
SEEN AND EXAMINED BY .
--- NOTE | 2021-06-16 16:55 | NUR ---
IV LINE ESTABLISHED BLOOD DRAWN AND SENT TO LAB.
--- NOTE | 2021-06-16 16:56 | NUR ---
RT RECD PT VIA TRANSPORT FOR ABNORMAL LABS, ON [facility] VENT AC 20 500 +5 40% TRACHED PORTEX 7 CUFFED INTACT & SECURED , SPARE TRACH BAG & MASK AT HOB SX SMALL PINK TINGE SECRETIONS NO RESP DISTRESS ATT WILL CONT TO MONITOR Addendum: 06/16/21 at 1659 by TERYR CANTU RT Amended: Links added.
[2021-06-16] MEDS ORDERED: HYDR-4076 GT (17:04)
[2021-06-16] MEDS ORDERED: ACET650S26 GT (17:04)
[2021-06-16] MEDS ORDERED: CLON0.1T GT (17:04)
[2021-06-16] MEDS ORDERED: LACT100027 GT (17:04)
[2021-06-16] MEDS ORDERED: ALBU6.7H9 IH (17:04)
[2021-06-16] MEDS ORDERED: SODI15OR6 GT (17:04)
[2021-06-16] MEDS ORDERED: IPRA12.9 IH ×2 (17:04)
[2021-06-16] MEDS ORDERED: MINE3.5O EACHEYE (17:04)
[2021-06-16 17:05] LABS: BASOPHILS % (AUTO) 0.4 % (0.0-2.0); EOSINOPHILS % (AUTO) 5.1 % (0.0-6.0); LYMPHOCYTES # (AUTO) 0.9 K/uL (0.8-4.8); LYMPHOCYTES % (AUTO) 15.5 % (20.0-44.0); MEAN CORPUSCULAR HGB CONC 31 g/dl (31.0-36.0); MEAN CORPUSCULAR VOLUME 75 fL (82-100); MONOCYTES # (AUTO) 0.2 K/uL (0.1-1.30); MONOCYTES % (AUTO) 2.9 % (2.0-12.0); NEUTROPHILS # (AUTO) 4.6 K/uL (1.8-8.9); NEUTROPHILS % (AUTO) 76.1 % (43.0-81.0); PLATELET COUNT (AUTO) 455 K/uL (150-450); RED BLOOD CELL COUNT(AUTO) 2.62 MIL/uL (4.0-5.2); WHITE BLOOD COUNT (AUTO) 6.1 K/uL (4.3-11.0)
[2021-06-16 17:17] LABS: HEMATOCRIT 20 % (33-45)
[2021-06-16 17:18] LABS: ALANINE AMINOTRANSFERASE 80 U/L (12-78); ALKALINE PHOSPHATASE 328 U/L (46-116); ASPARTATE AMINOTRANSFERASE 71 U/L (15-37); BILIRUBIN,DIRECT 0.1 mg/dL (0.0-0.2); BILIRUBIN,TOTAL 0.1 mg/dL (0.2-1.0); CALCIUM, SERUM 7.8 mg/dL (8.5-10.1); CARBON DIOXIDE 20 mmol/L (21-32); CHLORIDE 104 mmol/L (98-107); CREATININE 2.8 mg/dL (0.6-1.3); GLUCOSE 94 mg/dL (74-106); LIPASE 287 U/L (73-393); POTASSIUM 4.4 mmol/L (3.5-5.1); SODIUM SERUM 137 mmol/L (136-145); TOTAL PROTEIN, SERUM 7.8 g/dL (6.4-8.2)
[2021-06-16 17:21] LABS: ALBUMIN 1.3 g/dL (3.4-5.0); UREA NITROGEN, BLOOD 116 mg/dL (7-18)
--- NOTE | 2021-06-16 17:22 | NUR ---
LAB CALLED BUN 116 ALBUMIN 1.3 ELENI LOUIE INFORMED.
--- NOTE | 2021-06-16 17:27 | NUR ---
[facility] CALLED AIR DUCT MECHANIC PAGED.
--- NOTE | 2021-06-16 17:32 | NUR ---
HOSPITALIST SPEAKING WITH DR. SERRANO.
[2021-06-16] MEDS ORDERED: BISACODYL SUPP (10 MG) 10 MG/SUPP.RECT SUPP.RECT RC PRN (18:00)
[2021-06-16] MEDS ORDERED: NA PHOS,M-B/NA PHOS,DI-BA 1 EA ENEMA RC PRN (18:00)
[2021-06-16] MEDS ORDERED: MORPHINE SULFATE INJ 2 MG/ML DISP.SYRIN IV PRN (18:00)
[2021-06-16] MEDS ORDERED: ACETAMINOPHEN 325 MG TABLET PO PRN (18:00)
[2021-06-16] MEDS ORDERED: MAGNESIUM HYDROXIDE 30 ML UDC GT PRN (18:00)
[2021-06-16] MEDS ORDERED: ALBUTEROL SULFATE INH 18 GM HFA.AER.AD IH PRN (18:00)
[2021-06-16] MEDS ORDERED: ACETAMINOPHEN 650 MG/20.3 ML UDC GT PRN ×2 (18:00)
[2021-06-16] MEDS ORDERED: MAG HYDROX/AL HYDROX/SIMETH 30 ML UDC PO PRN (18:00)
[2021-06-16] MEDS ORDERED: ONDANSETRON HCL/PF 4 MG/2 ML VIAL IVP PRN (18:00)
[2021-06-16] MEDS ORDERED: CLONIDINE HCL 0.1 MG TABLET GT PRN (18:00)
[2021-06-16] MEDS ORDERED: MAGNESIUM HYDROXIDE 30 ML UDC PO PRN (18:00)
[2021-06-16] MEDS ORDERED: TRAMADOL HCL 50 MG TABLET GT PRN (18:00)
[2021-06-16 18:03] LABS: EOSINOPHILS % (MANUAL) 4 % (0-4); LYMPHOCYTES % (MANUAL) 16 % (16-48); MONOCYTES % (MANUAL) 2 % (0-11.0); NEUTROPHILS % (MANUAL) 78 (42-76)
[2021-06-16] MEDS: ALBUTEROL SULFATE INH 18 GM HFA.AER.AD IH SCH ×2 (19:30→20:34)
[2021-06-16] MEDS ORDERED: JEVITY 1.2 CAL 1,000 ML BOTTLE GT PRN (20:30)
[2021-06-16] MEDS ORDERED: IPRATROPIUM BROMIDE 14 GM INHALER (or 12.9 GM) INH PRN (20:30)
[2021-06-16] MEDS ORDERED: LABETALOL 20 MG/4 ML VIAL IV PRN (20:30)
--- NOTE | 2021-06-16 20:32 | NUR ---
RT AT BEDSIDE
[2021-06-16] MEDS ORDERED: LABETALOL HCL IV 100MG VIAL IV PRN (21:00)
--- NOTE | 2021-06-16 21:43 | NUR ---
BED 109, GIVE REPORT IN HALF HR PER LICENSED PESTICIDE APPLICATOR
--- NOTE | 2021-06-16 22:08 | NUR ---
REPORT GIVEN TO RN FOR GUILLERMO, AWAITING ROOM TO BE CLEANED.
--- NOTE | 2021-06-16 22:28 | NUR ---
CALLED RT TO TRANSFER PT.
--- NOTE | 2021-06-16 22:50 | NUR ---
PT TRANSFERED PER ACLS PROTOCOL
[2021-06-16 23:05] VITALS: BP 126/80
--- NOTE | 2021-06-16 23:05 | NUR ---
ADMIT NOTE RECEIVED PATIENT FROM ER, TRANSFERRED TO ROOM 109 VIA STRETCHER. PATIENT OPENS EYES, NON-VERBAL, DOES NOT FOLLOW COMMANDS. RESPONSIVE TO TACTILE STIMULI. PATIENT ON TRACH TO [facility] VENT, P #7, TV 500, AC 20, PEEP 5, 40%. O2 SAT >95%. NO SIGNS OF PAIN OR DISCOMFORT. IV ACCESS ON RIGHT HAND #20 PATENT AND INTACT. G-TUBE AUSCULTATED FOR POSITIVE PLACEMENT. MONTERO CATH PATEN AND DRAINING YELLOW CLEAR URINE. NOTED WITH GENERALIZED BODY PITTING EDEMA +3. SKIN ASSESSMENT DONE. NOTED WITH LEFT BREAST FOLD REDNESS, G-TUBE REDNESS, SACRAL SCAR, AND 0.5X0.5CM LEFT LOWER BUTTOCK ABRASION. KEPT CLEAN AND DRY. BED LOCKED AND IN LOWEST POSITION. CALL LIGHT WITHIN REACH. ALL NEEDS ANTICIPATED.
[2021-06-17] VITALS (9 sets, daily range): BP systolic 128–151; BP diastolic 70–90
--- NOTE | 2021-06-17 00:01 | NUR ---
BLOOD TRANSFUSION STARTED. VITAL SIGNS STABLE. WILL CONTINUE TO MONITOR.
[2021-06-17] MEDS: POLYVINYL ALCOHOL 15 ML BOTTLE EACHEYE SCH ×5 (00:08→22:07)
--- NOTE | 2021-06-17 00:45 | NUR ---
NOTIFIED REGINA MENESES PATIENT DIDN'T RECEIVE EVENING MEDS IN ER. REGINA MENESES SAID OK TO GIVE AVAILABLE MEDS. PLEASE REFER TO EMAR.
[2021-06-17] MEDS: hydrALAZINE HCL 25 MG TABLET GT SCH ×4 (00:49→22:00)
[2021-06-17] MEDS: GLYCOPYRROLATE 1 MG TABLET GT SCH ×5 (00:50→17:12)
[2021-06-17] MEDS: LEVETIRACETAM SOL (5 ML) 100 MG/ML UDC GT SCH ×3 (00:52→21:59)
[2021-06-17] MEDS: SCOPOLAMINE PATCH 1 MG/72HR TD SCH (01:00)
[2021-06-17] MEDS: ASCORBIC ACID 500 MG TABLET GT SCH ×2 (01:01→17:12)
[2021-06-17] MEDS: PANTOPRAZOLE 40 MG VIAL IV SCH ×3 (01:01→17:12)
[2021-06-17] MEDS: ALBUTEROL SULFATE INH 18 GM HFA.AER.AD IH SCH ×4 (02:03→20:06)
[2021-06-17] MEDS: IPRATROPIUM BROMIDE 14 GM INHALER (or 12.9 GM) IH SCH ×4 (02:03→20:06)
--- NOTE | 2021-06-17 02:40 | NUR ---
BLOOD TRANSFUSION ENDED AT THIS TIME. VITAL SIGNS STABLE. NO ADVERSE REACTION NOTED.
[2021-06-17] MEDS: IV NS 0.9% 1,000 ML IV PRN (04:36)
[2021-06-17] MEDS: LANOLIN/MIN OIL/PETROLAT,WHT 3.5 GM TUBE EACHEYE SCH ×3 (05:00→21:00)
--- NOTE | 2021-06-17 06:57 | NUR ---
RN NOTE PATIENT OPENS EYES AND NON-VERBAL. RESPONSIVE TO TACTILE STIMULI. PATIENT ON TRACH TO [facility] VENT, P #7, TV 500, AC 20, PEEP 5, 40%. O2 SAT >95%. NO SIGNS OF PAIN OR DISCOMFORT. IV ACCESS ON RIGHT HAND #20 PATENT AND INTACT RUNNING IV NS @ 75ML/HR. WITH G-TUBE RUNNING JEVTIY 1.2 @ 45ML/HR, NO RESIDUAL NOTED. MONTERO CATH PATENT OUTPUT 500CC. BED LOCKED AND IN LOWEST POSITION. CALL LIGHT WITHIN REACH. WILL ENDORSE TO AM SHIFT.
[2021-06-17 07:04] LABS: BASOPHILS % (AUTO) 0.4 % (0.0-2.0); EOSINOPHILS % (AUTO) 3.9 % (0.0-6.0); HEMATOCRIT 27 % (33-45); HEMOGLOBIN 8.3 g/dL (11.5-14.8); LYMPHOCYTES % (AUTO) 21.5 % (20.0-44.0); MEAN CORPUSCULAR HGB CONC 31 g/dl (31.0-36.0); MEAN CORPUSCULAR VOLUME 79 fL (82-100); MONOCYTES # (AUTO) 0.1 K/uL (0.1-1.30); MONOCYTES % (AUTO) 3.1 % (2.0-12.0); NEUTROPHILS # (AUTO) 3.3 K/uL (1.8-8.9); NEUTROPHILS % (AUTO) 71.1 % (43.0-81.0); PLATELET COUNT (AUTO) 434 K/uL (150-450); RED BLOOD CELL COUNT(AUTO) 3.42 MIL/uL (4.0-5.2); WHITE BLOOD COUNT (AUTO) 4.6 K/uL (4.3-11.0)
[2021-06-17 07:15] LABS: BILIRUBIN,TOTAL 0.2 mg/dL (0.2-1.0); CALCIUM, SERUM 8.1 mg/dL (8.5-10.1); MAGNESIUM 3.5 mg/dL (1.8-2.4); POTASSIUM 3.9 mmol/L (3.5-5.1); TOTAL PROTEIN, SERUM 7.9 g/dL (6.4-8.2)
--- NOTE | 2021-06-17 07:22 | NUR ---
RT Pt received trached on mechanical ventilation with noted settings. Pt is awake but does not follow commands. Vent is plugged into red outlet, BVM and spare trach by bedside. MDI given inline with no adverse reactions. No SOB or respiratory distress noted. Addendum: 06/17/21 at 1018 by LENIN SINCLAIR RT Amended: Links added.
[2021-06-17 07:29] LABS: ALBUMIN 1.3 g/dL (3.4-5.0)
[2021-06-17] MEDS: PROSOURCE / PROSTAT (PYXIS) 30 ML UDC GT SCH ×3 (09:00→17:12)
--- NOTE | 2021-06-17 09:04 | NUR ---
WOUND CARE CONSULT: REVIEWED CHART, NURSING DOCUMENTATION AND PHOTOS WHICH INDICATE LARGE AREA OF SACRAL SCARRING EXTENDING TO BUTTOCKS WITH REDNESS TO BUTTOCKS AND BREASTFOLDS, PRESENT ON ADMISSION. SURGICAL TEAM FOLLOWS PT. DR MCCARTNEY AWARE OF PT ADMISSION. RECOMMENDATIONS MADE FOR SKIN PROTECTION. DISCUSSED WITH NURSING STAFF. FIRST STEP LOW AIRLOSS MATTRESS IS ON ORDER. MD IN AGREEMENT WITH PLAN OF CARE.
[2021-06-17] MEDS: DOCUSATE SODIUM LIQ 100 MG/10 ML UDC GT SCH ×2 (10:00→17:12)
[2021-06-17] MEDS: CHLORHEXIDINE GLUCONATE 15 ML UDC MM SCH ×2 (10:00→17:12)
[2021-06-17] MEDS: FERROUS SULFATE UDC 300 MG/5 ML UDC GT SCH ×2 (10:00→17:11)
[2021-06-17] MEDS: METOPROLOL TARTRATE 25 MG TABLET GT SCH ×2 (10:01→17:11)
[2021-06-17] MEDS: SODIUM POLYSTYRENE SULFONATE 15 G/60 ML BOTTLE GT SCH (10:02)
[2021-06-17] MEDS: LACOSAMIDE ORAL SOLN 50 MG/5 ML UDC GT SCH ×2 (10:02→21:59)
[2021-06-17] MEDS ORDERED: ACETAMINOPHEN 650 MG/20.3 ML UDC GT PRN (11:54)
[2021-06-17] MEDS: Z GUARD REMEDY 2 OZ OINT TP PRN (12:40)
[2021-06-17] MEDS: Z GUARD REMEDY 2 OZ OINT TP SCH ×2 (12:41→22:07)
[2021-06-17] MEDS: EPOETIN ALFA-EPBX 10,000 UNIT/ML VIAL SQ SCH (14:34)
[2021-06-17] MEDS ORDERED: EPOETIN ALFA-EPBX 4,000 UNIT/ML VIAL SQ SCH (15:00)
[2021-06-17] MEDS ORDERED: EPOETIN ALFA (10,000 UNIT) 10,000 UNIT/ML VIAL SQ SCH (15:00)
[2021-06-17] MEDS: MULTIVIT W/MINERALS 1 TAB TABLET GT SCH (17:11)
[2021-06-17] MEDS: ALUMINUM HYDROXIDE 1,920 MG/30 ML UDC PO SCH (18:00)
--- NOTE | 2021-06-17 19:57 | NUR ---
RN NOTE PATIENT OPENS EYES AND NON-VERBAL. RESPONSIVE TO TACTILE STIMULI. ON TRACH TO [facility] VENT TOLERATING SETTINGS WELL, O2 SAT >97%. NO SIGNS OF PAIN OR DISCOMFORT. IV ACCESS ON RIGHT HAND #20 PATENT AND INTACT RUNNING IV NS @ 75ML/HR. WITH G-TUBE AND MONTERO CATH, PATENT AND INTACT. BED LOCKED AND IN LOWEST POSITION. CALL LIGHT WITHIN REACH. ALL NEEDS ANTICIPATED.
[2021-06-17 20:41] LABS: BILIRUBIN,URINE NEGATIVE (NEGATIVE); COLOR,URINE YELLOW (YELLOW); LEUKOCYTE ESTERASE ,URINE MODERATE (NEGATIVE); NITRITE, URINE POSITIVE (NEGATIVE); PROTEIN,URINE >=300 mg/dl (NEGATIVE); UGLUCOSE NEGATIVE (NEGATIVE); UROBILINOGEN,URINE 0.2 EU/dL (0.2)
[2021-06-17 20:46] LABS: BACTERIA,URINE Many /HPF (None Seen); SQUAMOUS EPITHELIAL CELL,UR Few /HPF (None Seen)
[2021-06-17 21:07] LABS: URINE TOTAL PROTEIN 544.1 mg/dL (0-11.9)
--- NOTE | 2021-06-17 21:17 | NUR ---
NOTIFIED ALLEGRA WILSON PATIENT BLOOD CULTURE ONE BOTTLE GRAM POSITIVE COCCI IN CLUSTERS SEEN ON GRAM STAIN WITH NEW ORDERS RECEIVED. ALSO VERIFIED WITH ALLEGRA PATIENT HGB YESTERDAY 6.0 AND NOW 8.0 AFTER 1 UNIT PRBC GIVEN AND OK TO GIVE LOVENOX DOSE.
[2021-06-17] MEDS ORDERED: VANCOMYCIN 1 GM VIAL ONE (21:51)
[2021-06-17] MEDS ORDERED: VANCOMYCIN 1.25 GM in IV D5W 250 ML IV ONE (22:00)
[2021-06-17] MEDS: ENOXAPARIN SODIUM 30 MG/0.3 ML DISP.SYRIN SQ SCH (22:02)
[2021-06-17 22:59] LABS: HEMOGLOBIN 7.8 g/dL (11.5-14.8)
[2021-06-18] VITALS: BP 155/79
[2021-06-18] MEDS ORDERED: PIPERACILLIN /TAZOBACTAM 3.375 G in IV D5W 50 ML IV SCH
[2021-06-18] MEDS ORDERED: PIPERACILLIN /TAZOBACTAM 3.375 G VIAL IV ONE ×2 (00:41→05:34)
[2021-06-18] MEDS: ZOSYN IVPB 3.375 G in IV D5W 50ml IV SCH ×2 (00:43→05:48)
[2021-06-18] MEDS: GLYCOPYRROLATE 1 MG TABLET GT SCH ×5 (00:43→23:13)
[2021-06-18] MEDS: NEPRO 1,000 ML BOTTLE GT PRN (01:05)
[2021-06-18] MEDS: ALBUTEROL SULFATE INH 18 GM HFA.AER.AD IH SCH ×4 (01:44→19:43)
[2021-06-18] MEDS: IPRATROPIUM BROMIDE 14 GM INHALER (or 12.9 GM) IH SCH ×4 (01:45→19:43)
[2021-06-18 04:00] VITALS: BP 129/75
[2021-06-18] MEDS: LANOLIN/MIN OIL/PETROLAT,WHT 3.5 GM TUBE EACHEYE SCH ×3 (04:15→21:00)
[2021-06-18] MEDS: IV NS 0.9% 1,000 ML IV PRN ×2 (04:24→12:29)
[2021-06-18] MEDS: POLYVINYL ALCOHOL 15 ML BOTTLE EACHEYE SCH ×4 (06:30→23:13)
--- NOTE | 2021-06-18 06:58 | NUR ---
RN NOTE PATIENT OPENS EYES AND NON-VERBAL. RESPONSIVE TO TACTILE STIMULI. ON TRACH TO [facility] VENT TOLERATING SETTINGS WELL, O2 SAT >97%. IV ACCESS ON RIGHT HAND #20 PATENT AND INTACT RUNNING IV NS @ 75ML/HR. WITH G-TUBE NEPRO @ 45ML/HR NO RESIDUAL AND MONTERO CATH, PATENT AND INTACT. TOLERATED BED BATH WELL, TURNED AND REPOSITIONED. ORAL CARE DONE. BED LOCKED AND IN LOWEST POSITION. CALL LIGHT WITHIN REACH. WILL ENDORSE TO AM SHIFT.
--- NOTE | 2021-06-18 07:15 | NUR ---
RN NOTE PATIENT OBSERVED IN BED, OBTUNDED, ON TRACHEOTOMY WITH MECHANICAL VENTILATOR TOLERATING WELL, BREATHING EVEN AND UNLABORED, O2 SAT OF 98%, ON TELE MONITOR SINUS TACHYCARDIA OF 103, NO PAIN OBSERVED, ON GT FEEDING RUNNING AND PATENT UPON AUSCULTATION, TOLERATING WELL, O CC RESIDUAL NOTED, ON MONTERO CATHETER NO HEMATURA NOTED, DRAINING WELL VIA GRAVITY, BED WHEELS LOCK, CALL LIGHT WITHIN REACH SAFETY MEASURE OBSERVED, WILL CONTINUE TO MONITOR PATIENT.
[2021-06-18 08:00] VITALS: BP 128/79
[2021-06-18 08:35] LABS: BILIRUBIN,TOTAL 0.3 mg/dL (0.2-1.0); CALCIUM, SERUM 7.7 mg/dL (8.5-10.1); MAGNESIUM 3.3 mg/dL (1.8-2.4); POTASSIUM 3.4 mmol/L (3.5-5.1); TOTAL PROTEIN, SERUM 7.7 g/dL (6.4-8.2)
[2021-06-18 08:44] LABS: ALBUMIN 1.3 g/dL (3.4-5.0); PHOSPHORUS 8.5 mg/dL (2.5-4.9)
[2021-06-18] MEDS: CHLORHEXIDINE GLUCONATE 15 ML UDC MM SCH ×2 (08:46→16:53)
[2021-06-18] MEDS: DOCUSATE SODIUM LIQ 100 MG/10 ML UDC GT SCH ×3 (08:46→16:53)
[2021-06-18 08:51] LABS: BASOPHILS % (AUTO) 0.2 % (0.0-2.0); EOSINOPHILS % (AUTO) 2.4 % (0.0-6.0); HEMATOCRIT 25 % (33-45); HEMOGLOBIN 7.6 g/dL (11.5-14.8); LYMPHOCYTES # (AUTO) 0.5 K/uL (0.8-4.8); LYMPHOCYTES % (AUTO) 5.7 % (20.0-44.0); MEAN CORPUSCULAR HGB CONC 31 g/dl (31.0-36.0); MEAN CORPUSCULAR VOLUME 78 fL (82-100); MONOCYTES # (AUTO) 0.2 K/uL (0.1-1.30); MONOCYTES % (AUTO) 2.4 % (2.0-12.0); NEUTROPHILS # (AUTO) 7.7 K/uL (1.8-8.9); NEUTROPHILS % (AUTO) 89.3 % (43.0-81.0); PLATELET COUNT (AUTO) 424 K/uL (150-450); RED BLOOD CELL COUNT(AUTO) 3.15 MIL/uL (4.0-5.2); WHITE BLOOD COUNT (AUTO) 8.7 K/uL (4.3-11.0)
[2021-06-18] MEDS: PANTOPRAZOLE 40 MG VIAL IV SCH (08:54)
[2021-06-18] MEDS: FERROUS SULFATE UDC 300 MG/5 ML UDC GT SCH ×2 (08:54→16:53)
[2021-06-18] MEDS: LEVETIRACETAM SOL (5 ML) 100 MG/ML UDC GT SCH ×2 (08:54→21:30)
[2021-06-18] MEDS: METOPROLOL TARTRATE 25 MG TABLET GT SCH ×2 (08:55→16:54)
[2021-06-18] MEDS: hydrALAZINE HCL 25 MG TABLET GT SCH ×2 (08:55→21:30)
--- NOTE | 2021-06-18 09:00 | NUR ---
RN NOTE ALBUMIN 1.3, PHOSPHORUS 1.5, BUN OF 103, MD AWARE CONTINUE TO MONITOR PATIENT ORDERED. OK TO INSERT MIDLINE PER MD.
[2021-06-18] MEDS: LACOSAMIDE ORAL SOLN 50 MG/5 ML UDC GT SCH ×2 (09:01→21:00)
[2021-06-18] MEDS: ALUMINUM HYDROXIDE 1,920 MG/30 ML UDC PO SCH ×3 (09:02→17:03)
[2021-06-18] MEDS: SODIUM POLYSTYRENE SULFONATE 15 G/60 ML BOTTLE GT SCH (09:02)
[2021-06-18] MEDS: PROSOURCE / PROSTAT (PYXIS) 30 ML UDC GT SCH ×3 (09:30→17:20)
[2021-06-18] MEDS: Z GUARD REMEDY 2 OZ OINT TP PRN (09:32)
[2021-06-18] MEDS: Z GUARD REMEDY 2 OZ OINT TP SCH ×2 (09:33→21:35)
--- NOTE | 2021-06-18 09:45 | NUR ---
RN NOTE HOLD KAYEXELATE 16G/60ML POTASSIUM OF 3.4 ORDERED BY .
[2021-06-18 12:00] VITALS: BP 121/76
[2021-06-18] MEDS: TAMSULOSIN 0.4 MG CAP.SR.24H GT SCH ×2 (12:01→21:30)
[2021-06-18] MEDS: PIPERACILLIN /TAZOBACTAM 2.25 G in IV D5W 50 ML IV SCH ×2 (12:24→17:03)
[2021-06-18 14:43] LABS: HEMOGLOBIN 7.4 g/dL (11.5-14.8)
[2021-06-18 16:00] VITALS: BP 121/76
--- NOTE | 2021-06-18 16:31 | NUR ---
RN NOTE PATIENT POTASSIUM OF 3.4 CALLED EPIC TO REACH Osorio ZAFAR MD NOTIFIED, WILL CONTINUE TO MONITOR PATIENT.
[2021-06-18] MEDS: PANTOPRAZOLE 40 MG/PACK PACK GT SCH (16:53)
[2021-06-18] MEDS: ASCORBIC ACID 500 MG TABLET GT SCH (17:03)
[2021-06-18] MEDS: MULTIVIT W/MINERALS 1 TAB TABLET GT SCH (17:03)
--- NOTE | 2021-06-18 18:22 | NUR ---
RN NOTE PATIENT OBSERVED IN BED, OBTUNDED, ON TRACHEOTOMY WITH MECHANICAL VENTILATOR TOLERATING WELL, BREATHING EVEN AND UNLABORED, O2 SAT OF 97%, ON TELE MONITOR SINUS TACHYCARDIA OF 103, NO PAIN OBSERVED, ON GT FEEDING RUNNING AND PATENT UPON AUSCULTATION, TOLERATING WELL, NO RESIDUAL NOTED, PATIENT IV ON LEFT HADN PATENT INFUSING WELL, FOR MIDLINE INSERTION ORDERED, KEYEXELATE HOLD ORDERED FO POTASSIUM LEVEL OF 3.4, MD AWARE OF PATIENT CURRENT CONDITION, ON MONTERO CATHETER NO HEMATURA NOTED, DRAINING WELL VIA GRAVITY, BED WHEELS LOCK, CALL LIGHT WITHIN REACH SAFETY MEASURE OBSERVED, WILL CONTINUE TO MONITOR PATIENT.WILL ENDORSE TO NOC SHIFT.
--- NOTE | 2021-06-18 19:30 | NUR ---
RN NOTE RECEIVED PATIENT IN BED, OBTUNDED, IN NO S/SX OF ACUTE DISTRESS AT THIS TIME. ON TRACH TO MECHANICAL VENT WITH SETTINGS PRESCRIBED, SATURATION AT 95%, ST ON THE MONITOR, HR IS 108. NOTED IV SITE AT R HAND 20G, PATENT AND FLUSHING WELL, NO S/S OF INFECTION OR INFILTRATION. NOTED GTUBE INTACT POSITIVE PLACEMENT NOTED, NO RESIDUAL WITH TUBE FEEDING OF NEPRO AT 45 ML/HR. MONTERO CATHETER CONNECTED TO URINE BAG IN PLACE, DRAINING TO A CLEAR, YELLOW OUTPUT. SAFETY MEASURES IMPLEMENTED. PATIENT BED ALARM IS ON. HEAD OF BED ELEVATED. BED IS LOCKED, IN LOWEST POSITION AND SIDE RAILS UP. CALL LIGHT WITHIN REACH OF THE PATIENT. WILL CONTINUE TO MONITOR AND REASSESS FOR ANY CHANGES.
[2021-06-18 20:00] VITALS: BP 119/71
--- NOTE | 2021-06-18 21:30 | NUR ---
RN NOTE LACOSAMIDE 50 MG/5ML UDC OUT OF STOCK PER FACUNDO PYXIS, CHECKED WITH OTHER UNITS, ONLY LACOSAMIDE TAB AVAILABLE. NURSING FINANCIAL ADMINISTRATION OFFICER WAS ADVISED, CHECKED AND VERIFIED THAT WE DO NOT CARRY THIS SPECIFIC PREPARATION. DR WILSON WAS NOTIFIED, WAS INSTRUCTED TO VERIFY WITH PHARMACY FOR RECOMMENDATION REGARDING POSSIBLE SUBSTITUTE. TELEPHONE CALL TO [facility] AT [phone], SPOKE WITH SANTI, STATED THAT THERE IS NO SUBSTITUTE, AND MD HAS BE TO MADE AWARE, AND HAS TO MAKE A DECISION. DR WILSON WAS ADVISED OF SITUATION AND THAT PT IS NOW ON KEPPRA 500 MG/5ML Q12H, SAID THE BEST THING THAT CAN BE DONE AT THE MOMENT IS TO ADMINISTER KEPPRA PRESCRIBED AND JUST MONITOR PT FOR SEIZURES, AND NOTIFY AM SHIFT. AVIATION MAINTENANCE TECHNICIAN MADE AWARE.
[2021-06-18] MEDS: ENOXAPARIN SODIUM 30 MG/0.3 ML DISP.SYRIN SQ SCH (21:32)
[2021-06-18] MEDS: VANCOMYCIN 0.75 GM in IV D5W 250 ML IV SCH (21:35)
[2021-06-18] MEDS ORDERED: LACOSAMIDE 50 MG TABLET ONE (21:50)
--- NOTE | 2021-06-18 22:00 | NUR ---
RN NOTE REMOVED AND REINSERTED MONTERO CATHETER 16FR PER MD ORDER. STERILE PROTOCOL WAS OBSERVED, IMMEDIATE OUTPUT OF 50 ML CLOUDY, YELLOW OUTPUT NOTED.
[2021-06-19] VITALS: BP 134/74
[2021-06-19] MEDS: ALBUTEROL SULFATE INH 18 GM HFA.AER.AD IH SCH ×4 (01:24→19:50)
[2021-06-19] MEDS: IPRATROPIUM BROMIDE 14 GM INHALER (or 12.9 GM) IH SCH ×4 (01:25→19:50)
[2021-06-19 04:00] VITALS: BP 132/79
[2021-06-19] MEDS ORDERED: PIPERACILLIN /TAZOBACTAM 2.25 G in IV D5W 50 ML IV SCH (05:00)
[2021-06-19] MEDS: LANOLIN/MIN OIL/PETROLAT,WHT 3.5 GM TUBE EACHEYE SCH ×3 (05:00→21:00)
[2021-06-19] MEDS: POLYVINYL ALCOHOL 15 ML BOTTLE EACHEYE SCH ×3 (05:28→17:34)
[2021-06-19] MEDS: GLYCOPYRROLATE 1 MG TABLET GT SCH ×3 (05:30→17:34)
[2021-06-19] MEDS: NEPRO 1,000 ML BOTTLE GT PRN (05:30)
[2021-06-19] MEDS: IV NS 0.9% 1,000 ML IV PRN (05:42)
[2021-06-19 06:20] LABS: BASOPHILS % (AUTO) 0.2 % (0.0-2.0); EOSINOPHILS % (AUTO) 5.8 % (0.0-6.0); HEMATOCRIT 24 % (33-45); HEMOGLOBIN 7.4 g/dL (11.5-14.8); LYMPHOCYTES % (AUTO) 16.2 % (20.0-44.0); MEAN CORPUSCULAR HGB CONC 31 g/dl (31.0-36.0); MEAN CORPUSCULAR VOLUME 79 fL (82-100); MONOCYTES # (AUTO) 0.2 K/uL (0.1-1.30); MONOCYTES % (AUTO) 3.5 % (2.0-12.0); NEUTROPHILS # (AUTO) 4.7 K/uL (1.8-8.9); NEUTROPHILS % (AUTO) 74.3 % (43.0-81.0); PLATELET COUNT (AUTO) 389 K/uL (150-450); RED BLOOD CELL COUNT(AUTO) 3.05 MIL/uL (4.0-5.2); WHITE BLOOD COUNT (AUTO) 6.4 K/uL (4.3-11.0)
[2021-06-19 06:38] LABS: CALCIUM, SERUM 7.6 mg/dL (8.5-10.1); CREATININE 3.1 mg/dL (0.6-1.3); POTASSIUM 3.1 mmol/L (3.5-5.1)
--- NOTE | 2021-06-19 07:22 | NUR ---
RN NOTE PATIENT OBSERVED IN BED, OBTUNDED, ON TRACHEOTOMY WITH MECHANICAL VENTILATOR TOLERATING WELL, BREATHING EVEN AND UNLABORED, O2 SAT OF 97%, ON TELE MONITOR SINUS TACHYCARDIA OF 103 AT THIS TIME, NO PAIN OBSERVED, ON GT FEEDING RUNNING AND PATENT UPON AUSCULTATION, TOLERATING WELL, O CC RESIDUAL NOTED, ON MONTERO CATHETER NO HEMATURA NOTED, DRAINING WELL VIA GRAVITY, BED WHEELS LOCK, CALL LIGHT WITHIN REACH SAFETY MEASURE OBSERVED, WILL CONTINUE TO MONITOR PATIENT.
--- NOTE | 2021-06-19 07:26 | NUR ---
RN NOTE PATIENT REMAINS IN ROOM, NO SIGN OF ACUTE DISTRESS NOTED, SATURATION 100%, SR ON THE MONITOR, HR AT 80'S. ENDORSED TO LESLEY LOIUE INCLUDING UNAVAILABILITY OF LACOSAMIDE 50 MG/5ML UDC AND LANOLIN EYE OINTMENT.
--- NOTE | 2021-06-19 07:36 | NUR ---
RN NOTE PATIENT SEEN BY DR. DOLAN AT BEDSIDE, RELAYED AM LABS TO MD, POTASSIUM 3.1, BUN OF 98, CREATININE OF 3.1 SODIUM OF 147 NO NEW ORDERS AT THIS TIME, MD WILL LOOK UP THE PATIENT CHART.
[2021-06-19 08:00] VITALS: BP 143/79
[2021-06-19] MEDS: CHLORHEXIDINE GLUCONATE 15 ML UDC MM SCH ×2 (08:55→17:34)
[2021-06-19] MEDS ORDERED: POTASSIUM CHLORIDE 20 MEQ POWDER PACKET GT ONE (09:00)
[2021-06-19] MEDS: ALUMINUM HYDROXIDE 1,920 MG/30 ML UDC PO SCH ×3 (09:00→17:35)
[2021-06-19] MEDS: DOCUSATE SODIUM LIQ 100 MG/10 ML UDC GT SCH ×3 (09:00→17:34)
[2021-06-19] MEDS: PROSOURCE / PROSTAT (PYXIS) 30 ML UDC GT SCH ×3 (09:00→17:34)
[2021-06-19] MEDS: PANTOPRAZOLE 40 MG/PACK PACK GT SCH ×2 (09:01→17:34)
[2021-06-19] MEDS: hydrALAZINE HCL 25 MG TABLET GT SCH ×2 (09:01→20:46)
[2021-06-19] MEDS: LACOSAMIDE ORAL SOLN 50 MG/5 ML UDC GT SCH ×2 (09:01→21:00)
[2021-06-19] MEDS: FERROUS SULFATE UDC 300 MG/5 ML UDC GT SCH ×2 (09:01→17:33)
[2021-06-19] MEDS: LEVETIRACETAM SOL (5 ML) 100 MG/ML UDC GT SCH ×2 (09:01→20:46)
[2021-06-19] MEDS: METOPROLOL TARTRATE 25 MG TABLET GT SCH ×2 (09:02→17:37)
[2021-06-19] MEDS: Z GUARD REMEDY 2 OZ OINT TP SCH ×2 (09:24→20:47)
[2021-06-19] MEDS: PIPERACILLIN /TAZOBACTAM 2.25 G in IV D5W 50 ML IV SCH ×2 (11:21→17:34)
[2021-06-19 12:00] VITALS: BP 136/75
--- NOTE | 2021-06-19 13:45 | NUR ---
RN NOTE TRANSFERRED PATIENT TO ROOM 308 GAVE ENDORSEMENT TO GEOVANY MCBRIDE RN NURSE TO PATIENT CURRENT CONDITION. PATIENT ON TRACHEOSTOMY AND VENT, BREATHING EVEN AND UNLABORED, O2 SAT OF 98%
--- NOTE | 2021-06-19 14:22 | NUR ---
transferred from 109 to 308. pt use same mechanical ventilator with following parameters: ac 20, 500 VT, 30% fio2, peep 5. vent plugged into red outlet with alarma on and functioning. BVM at bedside Addendum: 06/19/21 at 1423 by ABDOUL SHULTZ RT Amended: Links added.
--- NOTE | 2021-06-19 14:30 | NUR ---
RN NOTE PT TRANSFERRED TO ROOM 308-1 IN STABLE CONDITION. V/S CHECKED. LABS AND ORDERED REVIEWED. CHART BROUGHT WITH PT. VENT SETTINGS CHECKED. WILL CONTINUE TO MONITOR.
[2021-06-19] MEDS: EPOETIN ALFA-EPBX 10,000 UNIT/ML VIAL SQ SCH (15:26)
[2021-06-19 16:00] VITALS: BP 135/86
[2021-06-19] MEDS: MULTIVIT W/MINERALS 1 TAB TABLET GT SCH (17:34)
[2021-06-19] MEDS: ASCORBIC ACID 500 MG TABLET GT SCH (17:34)
[2021-06-19] MEDS: Potassium Chloride 20 MEQ in IV D5/0.45 NACL 1,000 ML IV SCH (17:38)
--- NOTE | 2021-06-19 19:28 | NUR ---
RN CLOSING NOTE PT IN BED. IN STABLE CONDITION. ROUTINE MEDS GIVEN. G TUBE PATENT. IV LINES PATENT. REPORT GIVEN TO NIGHT NURSE FOR GUILLERMO.
--- NOTE | 2021-06-19 19:30 | NUR ---
CUSTOMER MANAGEMENT SPECIALIST NOTES PATIENT IN BED, OBTUNDED, NONVERBAL, APPEARS COMFORTABLE. BREATHING EVEN AND UNLABORED ON VENT PORTEX 7 AC 20, TV 500, FIO2 30 AND PEEP 5. SHOWS NO SIGNS OF ACUTE RESPIRATORY DISTRESS. NO ACUTE PAIN. TELE MONITOR SR. FC INTACT RUNNING CLEAR YELLOW URINE. GTUBE RUNNING NEPHRO AT 45ML/HR. NO RESIDUALS. IV AND MIDLINE CLEAN DRY AND INTACT RUNNING FLUIDS. SAFETY PRECAUTIONS IN PLACE. BED IN LOWEST POSITION, LOCKED, AND CALL LIGHT KEPT WITHIN REACH. WILL CONTINUE TO MONITOR.
[2021-06-19 20:00] VITALS: BP_SYST 131; BP_SYST 137; BP_DIAS 79
[2021-06-19] MEDS: SCOPOLAMINE PATCH 1 MG/72HR TD SCH (20:46)
[2021-06-19] MEDS: ENOXAPARIN SODIUM 30 MG/0.3 ML DISP.SYRIN SQ SCH (20:48)
[2021-06-19] MEDS ORDERED: KEY,NONCONTROL,TO KEEP IN PYXI 1 EA MC ONE (21:17)
[2021-06-19] MEDS: VANCOMYCIN 0.75 GM in IV D5W 250 ML IV SCH (22:00)
[2021-06-19] MEDS: TAMSULOSIN 0.4 MG CAP.SR.24H GT SCH (22:01)
[2021-06-20] VITALS: BP 130/80
[2021-06-20] MEDS: PIPERACILLIN /TAZOBACTAM 2.25 G in IV D5W 50 ML IV SCH ×4 (00:21→17:11)
[2021-06-20] MEDS: GLYCOPYRROLATE 1 MG TABLET GT SCH ×5 (00:21→23:57)
[2021-06-20] MEDS: POLYVINYL ALCOHOL 15 ML BOTTLE EACHEYE SCH ×4 (00:32→17:06)
[2021-06-20] MEDS: ALBUTEROL SULFATE INH 18 GM HFA.AER.AD IH SCH ×4 (00:50→19:52)
[2021-06-20] MEDS: IPRATROPIUM BROMIDE 14 GM INHALER (or 12.9 GM) IH SCH ×4 (00:51→19:51)
[2021-06-20] MEDS: Potassium Chloride 20 MEQ in IV D5/0.45 NACL 1,000 ML IV SCH ×2 (03:08→13:06)
[2021-06-20 04:00] VITALS: BP 140/86
[2021-06-20] MEDS: LANOLIN/MIN OIL/PETROLAT,WHT 3.5 GM TUBE EACHEYE SCH ×3 (05:00→21:00)
--- NOTE | 2021-06-20 06:31 | NUR ---
PANEL GLUER NOTES PATIENT IN BED, ASLEEP, ALERT AND ORIENTED X 4. BREATHING EVEN AND UNLABORED ON 4L NC. SHOWS NO SIGNS OF ACUTE RESPIRATORY DISTRESS. NO ACUTE PAIN. TELE MONITOR SR WITH PVC AND PAC. IV ON L WRIST 22G CLEAN DRY AND INTACT. ALL DUE MEDICATIONS GIVEN. ALL NEEDS ATTENDED TO. SAFETY PRECAUTIONS IN PLACE. BED IN LOWEST POSITION, LOCKED, AND CALL LIGHT KEPT WITHIN REACH. WILL ENDORSE TO ONCOMING NURSE. Addendum: 06/20/21 at 0631 by LUIS LOTT RN WRONG PATIENT
--- NOTE | 2021-06-20 06:32 | NUR ---
RETAIL ADVISOR NOTES PATIENT IN RESTING BED, OBTUNDED, NONVERBAL. BREATHING EVEN AND UNLABORED ON [facility] VENT PORTEX 7 AC 20, TV 500, FIO2 30 AND PEEP 5. SHOWS NO SIGNS OF ACUTE RESPIRATORY DISTRESS. NO ACUTE PAIN. TELE MONITOR SR. FC INTACT RUNNING CLEAR YELLOW URINE. GTUBE RUNNING NEPHRO AT 45ML/HR. NO RESIDUALS. IV AND MIDLINE CLEAN DRY AND INTACT RUNNING FLUIDS. ALL DUE MEDICATIONS GIVEN. ALL NEEDS ATTENDED TO. SAFETY PRECAUTIONS IN PLACE. BED IN LOWEST POSITION, LOCKED, AND CALL LIGHT KEPT WITHIN REACH. WILL CONTINUE ENDORSE TO ONCOMING NURSE.
[2021-06-20 06:35] LABS: CALCIUM, SERUM 7.9 mg/dL (8.5-10.1); MAGNESIUM 3.1 mg/dL (1.8-2.4); PHOSPHORUS 7.2 mg/dL (2.5-4.9); POTASSIUM 3.5 mmol/L (3.5-5.1)
[2021-06-20 08:13] VITALS: BP 136/78
[2021-06-20] MEDS: FERROUS SULFATE UDC 300 MG/5 ML UDC GT SCH ×2 (09:42→17:05)
[2021-06-20] MEDS: DOCUSATE SODIUM LIQ 100 MG/10 ML UDC GT SCH ×2 (09:42→17:05)
[2021-06-20] MEDS: PANTOPRAZOLE 40 MG/PACK PACK GT SCH ×2 (09:42→17:05)
[2021-06-20] MEDS: CHLORHEXIDINE GLUCONATE 15 ML UDC MM SCH ×2 (09:42→17:04)
[2021-06-20] MEDS: LEVETIRACETAM SOL (5 ML) 100 MG/ML UDC GT SCH ×2 (09:42→21:40)
[2021-06-20] MEDS: METOPROLOL TARTRATE 25 MG TABLET GT SCH ×2 (09:43→17:05)
[2021-06-20] MEDS: hydrALAZINE HCL 25 MG TABLET GT SCH ×2 (09:43→21:51)
[2021-06-20] MEDS: Z GUARD REMEDY 2 OZ OINT TP SCH ×2 (09:44→21:40)
[2021-06-20] MEDS: LACOSAMIDE ORAL SOLN 50 MG/5 ML UDC GT SCH ×2 (11:00→22:42)
[2021-06-20] MEDS: PROSOURCE / PROSTAT (PYXIS) 30 ML UDC GT SCH ×2 (11:00→13:06)
--- NOTE | 2021-06-20 11:13 | NUR ---
RT NOTE PT REMAINS MECHANICALLY VENTILATED VIA CUFFED TRACHEOSTOMY TUBE. CUFF INFLATED. TRACH TUBE MIDLINE AND SECURE. VENTILATOR SETTINGS PRESCRIBED. ALARMS SET PER PROTOCOL AND AUDIBLE. VENT PLUGGED IN TO RED OUTLET. AMBU BAG AND BACK UP TRACH AT BED SIDE. NO DISTRESS NOTED. Addendum: 06/20/21 at 1115 by CHRISTIANNE BEDOYA RT Amended: Links added.
[2021-06-20 11:29] VITALS: BP 149/78
[2021-06-20 16:22] VITALS: BP 127/86
[2021-06-20] MEDS: ASCORBIC ACID 500 MG TABLET GT SCH (17:05)
[2021-06-20] MEDS: MULTIVIT W/MINERALS 1 TAB TABLET GT SCH (17:05)
[2021-06-20] MEDS ORDERED: VANCOMYCIN 0.75 GM in IV D5W 250 ML IV SCH (18:00)
--- NOTE | 2021-06-20 18:59 | NUR ---
EXTRACTOR PULLER NOTES PT IN BED, AWAKE, NO SIGN OF PAIN OR DISTRESS, GT FEEDING INFUSING WELL, ON VENT/TRACH, NO SOB NOTED, PM CARE PROVIDED, PM MEDS GIVEN ORDERED, KEPT CLEAN, DRY AND COMFORTABLE IN BED.
--- NOTE | 2021-06-20 19:39 | NUR ---
seniour insight manager Opening Notes Patient was last seen sleeping in bed. Patient's obtunded and opens her eyes. Patient's on a mechanical vent with no respiratory distress noted. Patient's connected to a tele monitor with no cardiac distress noted. Patient has a left upper arm midline, which is intact, patent, and flushing well. Safety measures in place: Bed locked, bed alarm on, side rails up x3, and call light within reach of the patient. Will continue to monitor the patient.
[2021-06-20 20:00] VITALS: BP 119/70
[2021-06-20] MEDS: ENOXAPARIN SODIUM 30 MG/0.3 ML DISP.SYRIN SQ SCH (21:29)
[2021-06-20] MEDS: TAMSULOSIN 0.4 MG CAP.SR.24H GT SCH (21:40)
[2021-06-20] MEDS ORDERED: LACOSAMIDE ORAL SOLN 50 MG/5 ML UDC ONE (22:06)
[2021-06-21] VITALS: BP 122/66
[2021-06-21] MEDS: POLYVINYL ALCOHOL 15 ML BOTTLE EACHEYE SCH ×3 (00:05→12:00)
[2021-06-21] MEDS: PIPERACILLIN /TAZOBACTAM 2.25 G in IV D5W 50 ML IV SCH ×3 (00:20→13:30)
[2021-06-21] MEDS: IPRATROPIUM BROMIDE 14 GM INHALER (or 12.9 GM) IH SCH ×3 (02:05→13:23)
[2021-06-21] MEDS: ALBUTEROL SULFATE INH 18 GM HFA.AER.AD IH SCH ×3 (02:05→13:23)
[2021-06-21 04:00] VITALS: BP 135/74
[2021-06-21] MEDS: LANOLIN/MIN OIL/PETROLAT,WHT 3.5 GM TUBE EACHEYE SCH ×2 (05:00→13:00)
[2021-06-21] MEDS: NEPRO 1,000 ML BOTTLE GT PRN (05:35)
[2021-06-21] MEDS: GLYCOPYRROLATE 1 MG TABLET GT SCH ×2 (05:36→12:00)
[2021-06-21 07:27] LABS: CALCIUM, SERUM 8.2 mg/dL (8.5-10.1); CREATININE 2.9 mg/dL (0.6-1.3); POTASSIUM 3.8 mmol/L (3.5-5.1)
[2021-06-21 08:00] VITALS: BP 160/96
[2021-06-21] MEDS: Z GUARD REMEDY 2 OZ OINT TP SCH (09:00)
[2021-06-21] MEDS: DOCUSATE SODIUM LIQ 100 MG/10 ML UDC GT SCH (10:25)
[2021-06-21] MEDS: CHLORHEXIDINE GLUCONATE 15 ML UDC MM SCH (10:25)
[2021-06-21] MEDS: LEVETIRACETAM SOL (5 ML) 100 MG/ML UDC GT SCH (10:25)
[2021-06-21] MEDS: FERROUS SULFATE UDC 300 MG/5 ML UDC GT SCH (10:25)
[2021-06-21] MEDS: PANTOPRAZOLE 40 MG/PACK PACK GT SCH (10:25)
[2021-06-21 10:26] VITALS: BP 160/96
[2021-06-21] MEDS: METOPROLOL TARTRATE 25 MG TABLET GT SCH (10:26)
[2021-06-21] MEDS: hydrALAZINE HCL 25 MG TABLET GT SCH (10:26)
[2021-06-21] MEDS: Potassium Chloride 20 MEQ in IV D5/0.45 NACL 1,000 ML IV SCH ×2 (10:31)
[2021-06-21] MEDS: LACOSAMIDE ORAL SOLN 50 MG/5 ML UDC GT SCH (12:35)
== END 2021-06-21 15:30 | DRG 720 ==
LOC: ER 16:38 → TRANSITION 19:45 → TELE1 21:45 → TELE 06-19 13:38 → UNDODISIN 06-21 15:30
PROVIDERS: ADMIT Internal Medicine; ATTEND Internal Medicine
PROC: 30233N1 Transfusion of Nonautologous Red Blood Cells into Peripheral Vein, Percutaneous Approach (ICD-10-PCS; principal; 2021-06-16)
PROC: 5A1955Z Respiratory Ventilation, Greater than 96 Consecutive Hours (ICD-10-PCS; 2021-06-16)
PROC: 05H633Z Insertion of Infusion Device into Left Subclavian Vein, Percutaneous Approach (ICD-10-PCS; 2021-06-19)
PROC: B547ZZA Ultrasonography of Left Subclavian Vein, Guidance (ICD-10-PCS; 2021-06-19)
DX: A41.9 Sepsis, unspecified organism (principal); G93.49 Other encephalopathy; Z99.11 Dependence on respirator [ventilator] status; J18.9 Pneumonia, unspecified organism; J96.10 Chronic respiratory failure, unspecified whether with hypoxia or hypercapnia; N17.9 Acute kidney failure, unspecified; E87.2 Acidosis; G40.909 Epilepsy, unspecified, not intractable, without status epilepticus; I12.9 Hypertensive chronic kidney disease with stage 1 through stage 4 chronic kidney disease, or unspecified chronic kidney disease; N18.9 Chronic kidney disease, unspecified; Z87.820 Personal history of traumatic brain injury; E83.39 Other disorders of phosphorus metabolism; E86.1 Hypovolemia; E87.0 Hyperosmolality and hypernatremia; E88.09 Other disorders of plasma-protein metabolism, not elsewhere classified; Z87.442 Personal history of urinary calculi; Z87.440 Personal history of urinary (tract) infections; Z86.711 Personal history of pulmonary embolism; Z93.1 Gastrostomy status; Z98.2 Presence of cerebrospinal fluid drainage device; Z20.822 Contact with and (suspected) exposure to COVID-19; R74.01 Elevation of levels of liver transaminase levels; M24.522 Contracture, left elbow; M24.521 Contracture, right elbow; L89.896 Pressure-induced deep tissue damage of other site; L98.8 Other specified disorders of the skin and subcutaneous tissue; L90.5 Scar conditions and fibrosis of skin; N13.6 Pyonephrosis; R13.10 Dysphagia, unspecified; D63.1 Anemia in chronic kidney disease; N21.0 Calculus in bladder
CPT/HCPCS: 31720; 36415; 71045-TC; 76770-TC; 80048-TC; 80053-TC; 80076-TC; 80202-TC; 81001; 82570-TC; 83540-TC; 83605-TC; 83690-TC; 83735-TC; 84100-TC; 84155-TC; 84300-TC; 84484-TC; 84703-TC; 85025-TC; 85027-TC; 85730-TC; 86850-TC; 87040-TC; 87081-TC; 87086-TC; 87186-TC; 94002-TC; 94003-TC; 94640; 94664; 94760-TC; 94762-TC; 94799-TC; A4623; C9113; G0378; J0885; J1650; J1953; J2543; J3370; J3480; J3490; J7030; J7060; P9016; U0003